=== PATIENT | male | born 1940 | race Caucasian/White ===

== ENCOUNTER 2018-07-30 11:11 | Inpatient (IN) | payer MEDICARE, BC ==
[2018-07-30] MEDS ORDERED: ONDANSETRON 4 MG/2 ML VIAL IVP STA (11:51)
[2018-07-30] MEDS ORDERED: SODIUM CHLORIDE 0.9% 1,000 ML IV STA (11:51)
[2018-07-30] MEDS ORDERED: HYDROmorphone 1 MG/ML 1 ML SYRINGE IVP STA (11:51)
--- NOTE | 2018-07-30 11:56 | ED ---
General Adult HPI - General Chief complaint: Nausea/Vomiting/Diarrhea Stated complaint: Vomiting; abdominal distention; dementia Time Seen by Provider: 07/30/18 11:25 Source: family, RN notes reviewed Mode of arrival: wheelchair Limitations: no limitations - History of Present Illness Initial comments: This a 77-year-old male presents emergency Department with a three-day history of abdominal pain and vomiting. Patient states the pain is diffuse and he has been unable to eat or drink because he vomits anything up. Patient states he thinks he still is passing gas but has had no bowel movement in that period. Patient states his abdomen is also very distended. Patient states he had a colonoscopy about 5-6 years ago. Patient denies any chest pain difficulty breathing shortness of breath per patient denies any fever chills. Patient denies any back pain. Patient denies dysuria hematuria urinary frequency. - Related Data Home Medications Medication Instructions Recorded Confirmed Ascorbic Acid [Vitamin C] 1,000 mg PO DAILY 07/30/18 07/30/18 Cholecalciferol [Vitamin D3] 1,000 unit PO DAILY 07/30/18 07/30/18 Donepezil [Aricept] 10 mg PO HS 07/30/18 07/30/18 Mirtazapine [Remeron] 15 mg PO HS 07/30/18 07/30/18 [place]-3 Fatty Acids/Fish Oil [Fish 1 cap PO DAILY 07/30/18 07/30/18 Oil 1,000 mg Softgel] Prevagen 1 tab PO DAILY 07/30/18 07/30/18 Turmeric Root Extract [Turmeric] 500 mg PO DAILY 07/30/18 07/30/18 Ubidecarenone [Co Q-10] 100 mg PO DAILY 07/30/18 07/30/18 Vitamin B Complex 1 cap PO DAILY 07/30/18 07/30/18 Vitamin E (Dl,Tocopheryl Acet) 400 unit PO DAILY 07/30/18 07/30/18 [Vitamin E] Allergies Allergy/AdvReac Type Severity Reaction Status Date / Time Penicillins Allergy Unknown Verified 07/30/18 11:58 Childhood Review of Systems ROS Statement: Those systems with pertinent positive or pertinent negative responses have been documented in the HPI. ROS Other: All systems not noted in ROS Statement are negative. Past Medical History Past Medical History: Dementia Additional Past Medical History / Comment(s): blind in left eye, hard of hearing , no sense of smell, history of head injury in 90s History of Any Multi-Drug Resistant Organisms: None Reported Past Surgical History: Orthopedic Surgery Past Psychological History: Depression Smoking Status: Former smoker Past Alcohol Use History: Rare Past Drug Use History: None Reported General Exam - General Exam Comments Initial Comments: GENERAL: Patient is well-developed and well-nourished. Patient is nontoxic and well- hydrated and is in moderate distress. ENT: Neck is soft and supple. No significant lymphadenopathy is noted. Oropharynx is clear. Moist mucous membranes. Neck has full range of motion without eliciting any pain. EYES: The sclera were anicteric and conjunctiva were pink and moist. Extraocular movements were intact and pupils were equal round and reactive to light. Eyelids were unremarkable. PULMONARY: Unlabored respirations. Good breath sounds bilaterally. No audible rales rhonchi or wheezing was noted. CARDIOVASCULAR: There is a regular rate and rhythm without any murmurs gallops or rubs. ABDOMEN: Patient's abdomen is distended and diffusely tender patient. Patient has no bowel sounds. No hernias were noted. SKIN: Skin is clear with no lesions or rashes and otherwise unremarkable. NEUROLOGIC: Patient is alert and oriented x3. Cranial nerves II through XII are grossly intact. Motor and sensory are also intact. Normal speech, volume and content. Symmetrical smile. MUSCULOSKELETAL: Normal extremities with adequate strength and full range of motion. No lower extremity swelling or edema. No calf tenderness. LYMPHATICS: No significant lymphadenopathy is noted PSYCHIATRIC: Normal psychiatric evaluation. Limitations: no limitations Course Vital Signs 07/30/18 11:24 Temperature 98.2 F Pulse Rate 74 Respiratory 18 Rate Blood Pressure 146/89 O2 Sat by Pulse 96 Oximetry Medical Decision Making - Medical Decision Making EKG shows normal sinus rhythm at 64 bpm IA interval 168 QRSs 102 QT interval 448 QTC is 462. Patient's EKG shows no ST segment elevation or depression or T wave abnormalities are noted. Patient's CAT scan shows sigmoid volvulus. I spoke with Dr. Remy through a nurse in the OR and he will call me back after he started in the OR. - Lab Data Result diagrams: 07/30/18 12:32 07/30/18 12:32 Lab Results 07/30/18 07/30/18 07/30/18 Range/Units 12:32 12:32 12:32 WBC 8.7 (3.8-10.6) k/uL RBC 5.06 (4.30-5.90) m/uL Hgb 15.5 (13.0-17.5) gm/dL Hct 46.9 (39.0-53.0) % MCV 92.8 (80.0-100.0) fL MCH 30.7 (25.0-35.0) pg MCHC 33.0 (31.0-37.0) g/dL RDW 12.6 (11.5-15.5) % Plt Count 179 (150-450) k/uL Neutrophils % 88 % Lymphocytes % 6 % Monocytes % 5 % Eosinophils % 0 % Basophils % 0 % Neutrophils # 7.6 (1.3-7.7) k/uL Lymphocytes # 0.5 L (1.0-4.8) k/uL Monocytes # 0.4 (0-1.0) k/uL Eosinophils # 0.0 (0-0.7) k/uL Basophils # 0.0 (0-0.2) k/uL PT (9.0-12.0) sec INR (<1.2) APTT (22.0-30.0) sec Sodium 141 (137-145) mmol/L Potassium 3.5 (3.5-5.1) mmol/L Chloride 108 H (98-107) mmol/L Carbon Dioxide 24 (22-30) mmol/L Anion Gap 9 mmol/L BUN 16 (9-20) mg/dL Creatinine 0.77 (0.66-1.25) mg/dL Est GFR (CKD-EPI)AfAm >90 (>60 ml/min/1.73 sqM) Est GFR (CKD-EPI)NonAf 88 (>60 ml/min/1.73 sqM) Glucose 134 H (74-99) mg/dL Plasma Lactic Acid Rboe 1.3 (0.7-2.0) mmol/L Calcium 9.3 (8.4-10.2) mg/dL Total Bilirubin 1.6 H (0.2-1.3) mg/dL AST 38 (17-59) U/L ALT 29 (21-72) U/L Alkaline Phosphatase 64 (38-126) U/L Troponin I (0.000-0.034) ng/mL Total Protein 7.1 (6.3-8.2) g/dL Albumin 4.4 (3.5-5.0) g/dL Amylase 35 (30-110) U/L Lipase 35 (23-300) U/L 07/30/18 07/30/18 Range/Units 12:32 12:32 WBC (3.8-10.6) k/uL RBC (4.30-5.90) m/uL Hgb (13.0-17.5) gm/dL Hct (39.0-53.0) % MCV (80.0-100.0) fL MCH (25.0-35.0) pg MCHC (31.0-37.0) g/dL RDW (11.5-15.5) % Plt Count (150-450) k/uL Neutrophils % % Lymphocytes % % Monocytes % % Eosinophils % % Basophils % % Neutrophils # (1.3-7.7) k/uL Lymphocytes # (1.0-4.8) k/uL Monocytes # (0-1.0) k/uL Eosinophils # (0-0.7) k/uL Basophils # (0-0.2) k/uL PT 10.5 (9.0-12.0) sec INR 1.0 (<1.2) APTT 24.2 (22.0-30.0) sec Sodium (137-145) mmol/L Potassium (3.5-5.1) mmol/L Chloride (98-107) mmol/L Carbon Dioxide (22-30) mmol/L Anion Gap mmol/L BUN (9-20) mg/dL Creatinine (0.66-1.25) mg/dL Est GFR (CKD-EPI)AfAm (>60 ml/min/1.73 sqM) Est GFR (CKD-EPI)NonAf (>60 ml/min/1.73 sqM) Glucose (74-99) mg/dL Plasma Lactic Acid Robe (0.7-2.0) mmol/L Calcium (8.4-10.2) mg/dL Total Bilirubin (0.2-1.3) mg/dL AST (17-59) U/L ALT (21-72) U/L Alkaline Phosphatase (38-126) U/L Troponin I 0.030 (0.000-0.034) ng/mL Total Protein (6.3-8.2) g/dL Albumin (3.5-5.0) g/dL Amylase (30-110) U/L Lipase (23-300) U/L Disposition Clinical Impression: Sigmoid volvulus Disposition: ADMITTED IP TO THIS HOSP Referrals: Brent Richmond DO [Primary Care Provider] - 1-2 days Time of Disposition: 15:39
[2018-07-30 13:03] LABS: Basophils % (A) 0 %; Eosinophils % (A) 0 %; HCT 46.9 % (39.0-53.0); HGB 15.5 gm/dL (13.0-17.5); Lymphocytes # (A) 0.5 k/uL (1.0-4.8); Lymphocytes % (A) 6 %; MCH 30.7 pg (25.0-35.0); MCV 92.8 fL (80.0-100.0); Monocytes # (A) 0.4 k/uL (0-1.0); Monocytes % (A) 5 %; Neutrophils # (A) 7.6 k/uL (1.3-7.7); Neutrophils % (A) 88 %; Platelet Count 179 k/uL (150-450); RBC 5.06 m/uL (4.30-5.90); RDW 12.6 % (11.5-15.5); WBC 8.7 k/uL (3.8-10.6)
[2018-07-30 13:12] LABS: ALT 29 U/L (21-72); AST 38 U/L (17-59); Albumin 4.4 g/dL (3.5-5.0); Alkaline Phosphatase 64 U/L (38-126); Amylase 35 U/L (30-110); Anion Gap 9 mmol/L; Blood Urea Nitrogen 16 mg/dL (9-20); Calcium 9.3 mg/dL (8.4-10.2); Carbon Dioxide 24 mmol/L (22-30); Chloride 108 mmol/L (98-107); Glucose 134 mg/dL (74-99); Lipase 35 U/L (23-300); Potassium 3.5 mmol/L (3.5-5.1); Sodium 141 mmol/L (137-145); Total Bilirubin 1.6 mg/dL (0.2-1.3); Total Protein 7.1 g/dL (6.3-8.2)
[2018-07-30 13:20] LABS: Partial Thromboplastin Time 24.2 sec (22.0-30.0); Prothrombin Time 10.5 sec (9.0-12.0)
--- NOTE | 2018-07-30 14:01 | CT ---
EXAMINATION TYPE: CT abdomen pelvis w con DATE OF EXAM: 07/30/2018 COMPARISON: NONE HISTORY: 77-year-old male with abdominal distention with vomiting TECHNIQUE: Contiguous axial scanning of the abdomen and pelvis following administration of 100 ml Iso charanjit 300 IV contrast. Delayed images through the kidneys and coronal/sagittal reconstructions perform ed. CT DLP: 778.1 mGycm Automated exposure control for dose reduction was used. FINDINGS: Heart upper limits of normal in size without pericardial effusion. Moderate-sized hilar hernia. Promi nent dependent atelectasis and underlying emphysema. No focal liver lesion or biliary ductal dilatation. Portal venous system is patent. Gallbladder, adrenal glands, kidneys, spleen, and mildly atrophic pancreas show no gross anomaly. There is mild abdominal ascites. No dilated small bowel or free air. Moderate stool up to the proximal sigmoid. The remainder of the sigmoid colon is markedly redundant, dilated up to 9.8 cm, and reaches up to the right upper quadrant. There is some focal torquing of the distal sigmoid as it comes back into the pelvis with the distinct transition point, refer to axial i mages 59 through 64. Prominent edematous change in the mesentery in this region. Bladder distended. Prostate gland measures 4.2 cm wide. Mild presacral edema. No pelvic lymphadenopat hy seen. Bones: Degenerative changes of the hips and SI joints and mild degenerative disc disease throughout t he spine. IMPRESSION: 1. MARKEDLY DILATED SIGMOID COLON MEASURING UP TO 9.8 CM REACHING UP INTO THE RIGHT UPPER QUADRANT AN D THE DISTAL SIGMOID SHOWING FOCAL TORQUING AND A WELL-DEFINED TRANSITION POINT (CORONAL IMAGE 51 AND AXIAL IMAGE 59). FINDINGS COMPATIBLE WITH SIGMOID VOLVULUS. 2. REACTIVE MILD FREE FLUID AND EXTENSIVE EDEMATOUS CHANGES IN THE MESENTERY. SURGICAL CONSULTATION R ECOMMENDED.
[2018-07-30] MEDS ORDERED: HYDROmorphone 0.5 MG/0.5 ML SYRINGE IVP STA (15:56)
[2018-07-30] MEDS: LACTATED RINGERS 1,000 ML IV ONE (17:17)
[2018-07-30] MEDS ORDERED: KETAMINE 10 MG/ML 20 ML VIAL ONE (17:19)
[2018-07-30] MEDS ORDERED: MIDAZOLAM 2 MG/2 ML VIAL ONE (17:19)
--- NOTE | 2018-07-30 17:26 | P.GSHP ---
History of Present Illness H&P Date: 07/30/18 Chief Complaint: Sigmoid volvulus Patient presents to the hospital today with episodes of vomiting and abdominal pain. Patient has a history of dementia. Decreased bowel function. He describes feeling increased bloating. Patient had a CAT scan demonstrating what appears represent sigmoid volvulus. [place] and proximal colonic dilatation noted. No evidence of pneumatosis. Mild inflammatory changes at the volvulus site however. No history of similar events. Unknown history of endoscopy in the past. Patient does live by himself. Patient had a nasogastric tube placed in the ER. Apparently after the nasogastric tube was placed he was trying to remove it. Patient was given some sedation. He is unable to provide any significant history to me at this time. - Review of Systems ROS unobtainable: Reports: due to mental status Past Medical History Past Medical History: Dementia Additional Past Medical History / Comment(s): blind in left eye, hard of hearing , no sense of smell, history of head injury in 90s History of Any Multi-Drug Resistant Organisms: None Reported Past Surgical History: Orthopedic Surgery Past Psychological History: Depression Smoking Status: Former smoker Past Alcohol Use History: Rare Past Drug Use History: None Reported Medications and Allergies Home Medications Medication Instructions Recorded Confirmed Type Ascorbic Acid [Vitamin C] 1,000 mg PO DAILY 07/30/18 07/30/18 History Cholecalciferol [Vitamin D3] 1,000 unit PO DAILY 07/30/18 07/30/18 History Donepezil [Aricept] 10 mg PO HS 07/30/18 07/30/18 History Mirtazapine [Remeron] 15 mg PO HS 07/30/18 07/30/18 History [place]-3 Fatty Acids/Fish Oil [Fish 1 cap PO DAILY 07/30/18 07/30/18 History Oil 1,000 mg Softgel] Prevagen 1 tab PO DAILY 07/30/18 07/30/18 History Turmeric Root Extract [Turmeric] 500 mg PO DAILY 07/30/18 07/30/18 History Ubidecarenone [Co Q-10] 100 mg PO DAILY 07/30/18 07/30/18 History Vitamin B Complex 1 cap PO DAILY 07/30/18 07/30/18 History Vitamin E (Dl,Tocopheryl Acet) 400 unit PO DAILY 07/30/18 07/30/18 History [Vitamin E] Allergies Allergy/AdvReac Type Severity Reaction Status Date / Time Penicillins Allergy Unknown Verified 07/30/18 11:58 Childhood Surgical - Exam Vital Signs Temp Pulse Resp BP Pulse Ox 98.2 F 74 18 146/89 96 07/30/18 11:24 07/30/18 11:24 07/30/18 11:24 07/30/18 11:24 07/30/18 11:24 Physical exam: General: Elderly male in no distress, somnolent HEENT: Normocephalic, sclerae nonicteric Abdomen: Distended, mild diffuse tenderness Extremities: No edema Neuro: Sedated Results - Labs 07/30/18 12:32 07/30/18 12:32 Abnormal Lab Results - Last 24 Hours (Table) 07/30/18 07/30/18 Range/Units 12:32 12:32 Lymphocytes # 0.5 L (1.0-4.8) k/uL Chloride 108 H (98-107) mmol/L Glucose 134 H (74-99) mg/dL Total Bilirubin 1.6 H (0.2-1.3) mg/dL Diabetes panel 07/30/18 Range/Units 12:32 Sodium 141 (137-145) mmol/L Potassium 3.5 (3.5-5.1) mmol/L Chloride 108 H (98-107) mmol/L Carbon Dioxide 24 (22-30) mmol/L BUN 16 (9-20) mg/dL Creatinine 0.77 (0.66-1.25) mg/dL Glucose 134 H (74-99) mg/dL Calcium 9.3 (8.4-10.2) mg/dL AST 38 (17-59) U/L ALT 29 (21-72) U/L Alkaline Phosphatase 64 (38-126) U/L Total Protein 7.1 (6.3-8.2) g/dL Albumin 4.4 (3.5-5.0) g/dL Calcium panel 07/30/18 Range/Units 12:32 Calcium 9.3 (8.4-10.2) mg/dL Albumin 4.4 (3.5-5.0) g/dL Pituitary panel 07/30/18 Range/Units 12:32 Sodium 141 (137-145) mmol/L Potassium 3.5 (3.5-5.1) mmol/L Chloride 108 H (98-107) mmol/L Carbon Dioxide 24 (22-30) mmol/L BUN 16 (9-20) mg/dL Creatinine 0.77 (0.66-1.25) mg/dL Glucose 134 H (74-99) mg/dL Calcium 9.3 (8.4-10.2) mg/dL Adrenal panel 07/30/18 Range/Units 12:32 Sodium 141 (137-145) mmol/L Potassium 3.5 (3.5-5.1) mmol/L Chloride 108 H (98-107) mmol/L Carbon Dioxide 24 (22-30) mmol/L BUN 16 (9-20) mg/dL Creatinine 0.77 (0.66-1.25) mg/dL Glucose 134 H (74-99) mg/dL Calcium 9.3 (8.4-10.2) mg/dL Total Bilirubin 1.6 H (0.2-1.3) mg/dL AST 38 (17-59) U/L ALT 29 (21-72) U/L Alkaline Phosphatase 64 (38-126) U/L Total Protein 7.1 (6.3-8.2) g/dL Albumin 4.4 (3.5-5.0) g/dL Assessment and Plan (1) Sigmoid volvulus Narrative/Plan: Will proceed with decompressive colonoscopy. Case reviewed in detail with the patient's caregiver. The CAT scan films were actually reviewed with her. If the decompressive colonoscopy is not successful the patient will likely require laparotomy with end colostomy. Current Visit: Yes Status: Acute Code(s): K56.2 - VOLVULUS SNOMED Code(s) : 530331137
[2018-07-30] MEDS ORDERED: ACETAMINOPHEN IV (For NPO) 1,000 MG in EMPTY BAG 1 BAG IVPB ONE (17:41)
--- NOTE | 2018-07-30 17:46 | P.PCN ---
Date of Procedure: 07/30/18 Procedure(s) Performed: PREOPERATIVE DIAGNOSIS: Sigmoid volvulus with colonic obstruction POSTOPERATIVE DIAGNOSIS: Same PROCEDURE: Decompressive colonoscopy ANESTHESIA: MAC SURGEON: Kb Remy M.D. SPECIMENS: None ENDOSCOPIC PROCEDURE: The patient was placed on the endoscopy table in the left decubitus position. The Olympus colonoscope was inserted into the anus and passed under direct visualization to the distal sigmoid colon. At that location I could visualize a hyperemia of the mucosa with a twisting of the colon at that region. I was able to advance the scope however beyond the site of obstruction without significant difficulty. Other than the hyperemia there was no mucosal abnormalities to suggest malignancy. This appeared quite consistent with sigmoid volvulus. I was able to advance the camera into the proximal sigmoid colon decompressing air throughout. Stool was present. I could not visualize the proximal mucosal surfaces well. Attempts at placing a rectal tube proximal to the twisting location in the distal sigmoid were unsuccessful. After fully decompressing that loop the scope was withdrawn. The nasogastric tube was removed. Digital rectal examination was normal. The patient was taken to the recovery room in stable condition per anesthesia guidelines. RECOMMENDATIONS: We'll repeat abdominal x-rays tomorrow. Keep nothing by mouth. Further decisions regarding surgical resection will take place tomorrow.
[2018-07-30] MEDS: D5-0.45% NACL WITH KCL 20MEQ/L 1,000 ML IV SCH (23:41)
[2018-07-31] MEDS: D5-0.45% NACL WITH KCL 20MEQ/L 1,000 ML IV SCH ×4 (00:29→21:52)
[2018-07-31] MEDS: HEPARIN SODIUM,PORCINE 5,000 UNIT/ML 1 ML VIAL SQ SCH ×4 (00:29→23:45)
[2018-07-31] MEDS: PANTOPRAZOLE 40 MG/10 ML VIAL IV SCH (08:20)
[2018-07-31 08:34] LABS: Basophils % (A) 0 %; Eosinophils % (A) 1 %; HCT 41.8 % (39.0-53.0); HGB 14.2 gm/dL (13.0-17.5); Lymphocytes # (A) 0.9 k/uL (1.0-4.8); Lymphocytes % (A) 12 %; MCHC 33.9 g/dL (31.0-37.0); MCV 94.3 fL (80.0-100.0); Mean Platelet Volume 8.2; Monocytes # (A) 0.5 k/uL (0-1.0); Monocytes % (A) 6 %; Neutrophils # (A) 6.1 k/uL (1.3-7.7); Neutrophils % (A) 80 %; Platelet Count 190 k/uL (150-450); RBC 4.43 m/uL (4.30-5.90); RDW 12.6 % (11.5-15.5); WBC 7.6 k/uL (3.8-10.6)
[2018-07-31 08:47] LABS: ALT 36 U/L (21-72); AST 38 U/L (17-59); Albumin 3.2 g/dL (3.5-5.0); Alkaline Phosphatase 50 U/L (38-126); Anion Gap 5 mmol/L; Blood Urea Nitrogen 16 mg/dL (9-20); Calcium 8.4 mg/dL (8.4-10.2); Carbon Dioxide 27 mmol/L (22-30); Chloride 109 mmol/L (98-107); Glucose 111 mg/dL (74-99); Phosphorus 2.6 mg/dL (2.5-4.5); Sodium 141 mmol/L (137-145); Total Bilirubin 1.4 mg/dL (0.2-1.3); Total Protein 5.5 g/dL (6.3-8.2)
[2018-07-31 08:48] LABS: Potassium 3.5 mmol/L (3.5-5.1)
[2018-07-31] MEDS: HYDROmorphone 0.5 MG/0.5 ML SYRINGE IVP PRN (10:35)
--- NOTE | 2018-07-31 10:49 | XR ---
EXAMINATION TYPE: XR abdomen complete w decub DATE OF EXAM: 07/31/2018 COMPARISON: CT scan 07/30/2017 HISTORY: Abdominal pain TECHNIQUE: Supine, upright, and left side down lateral decubitus views of the abdomen are obtained. FINDINGS: The abnormal findings of dilated sigmoid colon extending from the left lower quadrant towards the rig ht upper quadrant and midabdomen are again noted consistent with coffee hahn shape. No pneumoperitone um. Contrast is present within the urinary bladder. Lung bases are clear. IMPRESSION: Findings compatible with patient's CT, sigmoid volvulus. A Red level critical message alert has been initiated for Kb Remy MD via the [employer] Critical Results System on 07/31/2018 10:46 AM. This message alert has been sent to Kb Remy MD via the preferences provided by the clinician for the receipt of Radiology Critical Findings. Messag e ID [id number].
[2018-07-31] MEDS: IV FLUID CONTINUATION 1,000 ML IV ONE (14:04)
--- NOTE | 2018-07-31 14:30 | P.CONS ---
History of Present Illness - Reason for Consult Advanced dementia medical clearance - History of Present Illness 77-year-old gentleman came in with the complaints of 2 day onset of nausea vomiting was brought in by the caregiver. Patient has advancing dementia dementia of Alzheimer's type with the baseline mental status alert oriented 1- 2. Patient was bit dehydrated clinically nausea vomiting has not been eating for last couple days with significant abdominal bloating and distention and abdomen was tympanic. Patient was found to have sigmoid volvulus patient underwent agnostic and therapeutic colonoscopy. Repeat x-ray did show nonimprovement in sigmoid volvulus because of which patient will undergo colectomy today I will obtain EKG for preoperative clearance. She does have any significant cardiac or lung problems. Patient denied any chest pain shortness of breath. Review of Systems REVIEW OF SYSTEMS: CONSTITUTIONAL: No fever, no malaise, no fatigue. HEENT: No recent visual problems or hearing problems. Denied any sore throat. CARDIOVASCULAR: No chest pain, orthopnea, PND, no palpitations, no syncope. PULMONARY: No shortness of breath, no cough, no hemoptysis. GASTROINTESTINAL: As mentioned in HPI NEUROLOGICAL: No headaches, no weakness, no numbness. HEMATOLOGICAL: Denies any bleeding or petechiae. GENITOURINARY: Denies any burning micturition, frequency, or urgency. MUSCULOSKELETAL/RHEUMATOLOGICAL: Denies any joint pain, swelling, or any muscle pain. ENDOCRINE: Denies any polyuria or polydipsia. The rest of the 14-point review of systems is negative. Past Medical History Past Medical History: Dementia Additional Past Medical History / Comment(s): blind in left eye, hard of hearing , no sense of smell, history of head injury in 90s History of Any Multi-Drug Resistant Organisms: None Reported Past Surgical History: Orthopedic Surgery Smoking Status: Former smoker - Past Family History Father Family Medical History: Unable to Obtain Medications and Allergies Home Medications Medication Instructions Recorded Confirmed Type Ascorbic Acid [Vitamin C] 1,000 mg PO DAILY 07/30/18 07/30/18 History Cholecalciferol [Vitamin D3] 1,000 unit PO DAILY 07/30/18 07/30/18 History Donepezil [Aricept] 10 mg PO HS 07/30/18 07/30/18 History Mirtazapine [Remeron] 15 mg PO HS 07/30/18 07/30/18 History [place]-3 Fatty Acids/Fish Oil [Fish 1 cap PO DAILY 07/30/18 07/30/18 History Oil 1,000 mg Softgel] Prevagen 1 tab PO DAILY 07/30/18 07/30/18 History Turmeric Root Extract [Turmeric] 500 mg PO DAILY 07/30/18 07/30/18 History Ubidecarenone [Co Q-10] 100 mg PO DAILY 07/30/18 07/30/18 History Vitamin B Complex 1 cap PO DAILY 07/30/18 07/30/18 History Vitamin E (Dl,Tocopheryl Acet) 400 unit PO DAILY 07/30/18 07/30/18 History [Vitamin E] Allergies Allergy/AdvReac Type Severity Reaction Status Date / Time Penicillins Allergy Unknown Verified 07/31/18 14:07 Childhood Physical Exam Vitals: Vital Signs Temp Pulse Pulse Resp BP BP Pulse Ox 07/31/18 14:07 98.1 F 77 16 108/66 96 07/31/18 11:38 98.7 F 94 16 103/79 92 L 07/31/18 08:16 16 07/31/18 07:00 98.7 F 83 16 112/66 92 L 07/31/18 00:42 98.9 F 91 15 112/46 94 L 07/30/18 19:50 56 L 101/62 07/30/18 19:35 55 L 102/62 07/30/18 19:32 98.1 F 61 15 112/63 95 07/30/18 19:05 57 L 103/65 07/30/18 18:50 97.9 F 68 15 115/73 92 L 07/30/18 18:31 62 16 96/55 98 07/30/18 18:17 59 L 16 93/54 97 07/30/18 18:01 67 16 97/52 96 07/30/18 17:48 97.0 F L 63 14 96/58 93 L 07/30/18 17:06 94 16 103/79 92 L 07/30/18 17:00 94 16 103/79 92 L 07/30/18 16:00 92 15 139/84 92 L 07/30/18 15:00 87 17 139/84 92 L Intake and Output 07/30/18 07/31/18 07/31/18 22:59 06:59 14:59 Intake Total 850 685 Output Total 680 Balance 850 5 Intake: IV 600 Intake, IV Titration 250 685 Amount D5-0.45% NaCl with KCl 685 20Meq/l 1,000 ml @ 125 mls/hr IV .Q8H [facility] Rx#: [id number] Sodium Chloride 0.9% 1, 250 000 ml @ 999 mls/hr IV . Q1H1M [facility] Rx#:[id number] Output: Urine 680 Other: Voiding Method Diaper Diaper Incontinent # Voids 1 # Bowel Movements 0 PHYSICAL EXAMINATION: GENERAL: The patient is alert and oriented x3, not in any acute distress. Well developed, well nourished. HEENT: Pupils are round and equally reacting to light. EOMI. No scleral icterus. No conjunctival pallor. Normocephalic, atraumatic. No pharyngeal erythema. No thyromegaly. CARDIOVASCULAR: S1 and S2 present. No murmurs, rubs, or gallops. PULMONARY: Chest is clear to auscultation, no wheezing or crackles. ABDOMEN: Soft, distended tympanic in sluggish bowel sounds MUSCULOSKELETAL: No joint swelling or deformity. EXTREMITIES: No cyanosis, clubbing, or pedal edema. NEUROLOGICAL: Gross neurological examination did not reveal any focal deficits. SKIN: No rashes. Results CBC & Chem 7: 07/31/18 07:19 07/31/18 07:19 Labs: Abnormal Lab Results - Last 24 Hours (Table) 07/31/18 07/31/18 Range/Units 07:19 07:19 Lymphocytes # 0.9 L (1.0-4.8) k/uL Chloride 109 H (98-107) mmol/L Glucose 111 H (74-99) mg/dL Total Bilirubin 1.4 H (0.2-1.3) mg/dL Total Protein 5.5 L (6.3-8.2) g/dL Albumin 3.2 L (3.5-5.0) g/dL Assessment and Plan Plan: -Colonic Obstruction secondary to sigmoid volvulus: Patient will undergo colectomy today patient is low operative risk for surgery will obtain EKG -Advanced Alzheimer's dementia avoid benzodiazepines barbiturates opiates and anticholinergic medications I'll start him on Toradol for pain if that is agreeable by general surgery. --Nausea vomiting secondary to colonic obstruction -Depression: Antidepressants will be resumed as soon as he can tolerate by mouth medications. Thank you for consultation and will continue to follow the patient
[2018-07-31] MEDS ORDERED: fentaNYL (PF) 50 MCG/ML 2 ML AMP IVP ONE ×2 (14:31→15:02)
[2018-07-31] MEDS ORDERED: MIDAZOLAM 2 MG/2 ML VIAL IVP ONE ×2 (14:31→15:02)
[2018-07-31] MEDS ORDERED: NALOXONE 0.4 MG/ML 1 ML VIAL IV PRN (14:59)
[2018-07-31 15:02] LABS: Glucose,Whole Blood 100 mg/dL (75-99)
[2018-07-31] MEDS ORDERED: metroNIDAZOLE-NS PMX 500 MG in SALINE 1 100ML.BAG IVPB STA (15:15)
--- NOTE | 2018-07-31 15:29 | P.PN ---
Subjective Progress Note Date: 07/31/18 Principal diagnosis: Sigmoid volvulus Patient much more alert today. Says his pain is improved since when he came to the hospital. Still feels bloated. He did have a small amount of flatus. No significant bowel function however. Today's x-rays still show distended sigmoid colon consistent with sigmoid volvulus. White blood cell count remains normal. Objective - Vital Signs Vital signs: Vital Signs Temp 98.1 F 07/31/18 14:07 Pulse 66 07/31/18 15:23 Resp 16 07/31/18 15:23 BP 113/54 07/31/18 15:23 Pulse Ox 99 07/31/18 15:23 Intake & Output 07/30/18 07/31/18 07/31/18 18:59 06:59 18:59 Intake Total 449 322 8163 Output Total 680 Balance 974 194 0065 Weight 83.915 kg Intake: IV 600 Intake, IV Titration 935 1000 Amount D5-0.45% NaCl with KCl 685 1000 20Meq/l 1,000 ml @ 125 mls/hr IV .Q8H [facility] Rx#: [id number] Sodium Chloride 0.9% 1, 250 000 ml @ 999 mls/hr IV . Q1H1M [facility] Rx#:[id number] Output: Urine 680 Other: Voiding Method Diaper Diaper Incontinent # Voids 1 # Bowel Movements 0 - Exam Abdomen soft, mild distention, mild lower abdominal tenderness - Labs CBC & Chem 7: 07/31/18 07:19 07/31/18 07:19 Labs: Abnormal Lab Results - Last 24 Hours (Table) 07/31/18 07/31/18 07/31/18 Range/Units 07:19 07:19 15:00 Lymphocytes # 0.9 L (1.0-4.8) k/uL Chloride 109 H (98-107) mmol/L Glucose 111 H (74-99) mg/dL POC Glucose (mg/dL) 100 H (75-99) mg/dL Total Bilirubin 1.4 H (0.2-1.3) mg/dL Total Protein 5.5 L (6.3-8.2) g/dL Albumin 3.2 L (3.5-5.0) g/dL Assessment and Plan (1) Sigmoid volvulus Narrative/Plan: Patient with persistent sigmoid volvulus. Clinical scenario discussed with the patient his caregiver and also his son by phone. Recommend exploratory laparotomy with sigmoid colectomy. We'll try to avoid colostomy if possible. They understand that is a possibility however. Risks of bleeding, infection, hernia, ostomy placement, leak, abscess, ureteral injury were reviewed. They understand and wish to proceed. Current Visit: Yes Status: Acute Code(s): K56.2 - VOLVULUS SNOMED Code(s) : 197743286
[2018-07-31] MEDS ORDERED: ceFAZolin IN SWFI 2 GM/20 ML SYRINGE IVP ONE (15:30)
[2018-07-31] MEDS ORDERED: PHENYLEPHRINE-0.9% NACL SYG 1 MG/10 ML SYRINGE ONE (15:36)
[2018-07-31] MEDS ORDERED: NEOSTIGMINE 1 MG/ML 10 ML VIAL ONE (15:36)
[2018-07-31] MEDS ORDERED: LIDOCAINE 1% INJ 10MG/ML (20 ML MDV) ONE (15:36)
[2018-07-31] MEDS ORDERED: fentaNYL (PF) 50 MCG/ML 2 ML AMP ONE (15:36)
[2018-07-31] MEDS ORDERED: GLYCOPYRROLATE 0.2 MG/ML 2 ML VIAL ONE (15:36)
[2018-07-31] MEDS ORDERED: SUCCINYLCHOLINE CHLORIDE 100 MG/5 ML SYR IV ONE (15:36)
[2018-07-31] MEDS ORDERED: ROCURONIUM BROMIDE 10 MG/ML 10 ML VIAL IV ONE (15:36)
[2018-07-31] MEDS ORDERED: PROPOFOL 10 MG/ML 20 ML VIAL IV ONE (15:36)
[2018-07-31] MEDS ORDERED: LACTATED RINGERS 1,000 ML IV ONE (16:36)
--- NOTE | 2018-07-31 17:07 | P.OP ---
Date of Procedure: 07/31/18 Procedure(s) Performed: PREOPERATIVE DIAGNOSIS: Sigmoid volvulus POSTOPERATIVE DIAGNOSIS: Same PROCEDURE: Sigmoid colectomy SURGEON: Sandrita EBL: 25 mL ANESTHESIA: General COMPLICATIONS: None OPERATIVE PROCEDURE: Patient place in the operative table in the supine position. The patient was placed under general anesthesia. The abdomen was prepped and draped in usual sterile fashion. A vertical incision was in the infraumbilical location. The fascia was divided as well. The patient had some serous fluid within the perineal cavity. Through this fascial opening I was able to retrieve and withdraw the large redundant sigmoid loop. The twist in the mesentery was 180 and was untwisted at that time. A colotomy was made on the antimesenteric border and the air within the bowel lumen was evacuated. The defect was closed using a linear 75 stapler. The bowel was carefully inspected. It was somewhat edematous. Some transient edema improved while we were observing the bowel. From our discussions with the patient and his family preoperatively they were quite apprehensive about a colostomy given his dementia. It was decided to proceed with resection and primary anastomosis at that time. The bowel was divided using a linear 75 green load stapler both proximally and distally. The mesentery of the redundant loop was divided using a LigaSure. The specimen was passed off. A [id number] anastomosis then took place between the 2 portions of proximal and distal sigmoid colon. The antimesenteric portion of the staple line was removed. The linear stapler green load was fired along the antimesenteric border. This created a nice wide opening. The remaining defect was closed transversely using a linear 75 green load stapler. The transverse staple line was imbricated using 3-0 GI silk sutures. A 3-0 GI silk crotch stitch was also placed. The area was inspected and no bleeding or ischemic changes were identified. The abdomen was irrigated with saline. The midline fascia was then reapproximated using a double- stranded #1 PDS suture. The skin was then closed using mony. Sterile dressings were then applied. DISPOSITION: Stable to recovery room
[2018-07-31] MEDS: ROPIVACAINE 250 MG, HYDROMORPHONE (PF) 5 MG in SODIUM CHLORIDE 0.9% 200 ML EPIDURAL PRN (17:15)
[2018-07-31] MEDS: LACTATED RINGERS 1,000 ML IV ONE (18:48)
[2018-07-31] MEDS: LEVOFLOXACIN 500MG-D5W PMX 500 MG in DEXTROSE/WATER 1 100ML.BAG IVPB SCH (19:25)
[2018-07-31] MEDS: MIRTAZAPINE 15 MG TAB PO SCH (21:38)
[2018-07-31] MEDS: metroNIDAZOLE-NS PMX 500 MG in SALINE 1 100ML.BAG IVPB SCH (23:45)
[2018-08-01] MEDS: D5-0.45% NACL WITH KCL 20MEQ/L 1,000 ML IV SCH ×3 (02:37→23:20)
--- NOTE | 2018-08-01 07:16 | P.PN ---
Progress Note - Text Progress Note Date: 08/01/18 Postoperative day #1 status post sigmoid colectomy epidural catheter placed for postoperative analgesia, patient doing well epidural site okay, patient currently on combination of epidural infusion solution of Ropivacaine 0.0625% and Dilaudid 20 g per mL the infusion rate at 5ml per hour , patient had no motor deficit epidural site okay , vital signs stable VAS2/10 , Assessment and plan= post operative day # 1 patient doing well ,pain well controlled , there is no anesthesia related complications
[2018-08-01 08:13] LABS: Basophils % (A) 0 %; Eosinophils % (A) 0 %; HCT 39.7 % (39.0-53.0); HGB 13.3 gm/dL (13.0-17.5); Lymphocytes # (A) 0.7 k/uL (1.0-4.8); Lymphocytes % (A) 9 %; MCH 31.8 pg (25.0-35.0); MCHC 33.5 g/dL (31.0-37.0); MCV 94.8 fL (80.0-100.0); Monocytes # (A) 0.5 k/uL (0-1.0); Monocytes % (A) 6 %; Neutrophils # (A) 6.6 k/uL (1.3-7.7); Neutrophils % (A) 82 %; Platelet Count 158 k/uL (150-450); RBC 4.19 m/uL (4.30-5.90); RDW 12.5 % (11.5-15.5)
[2018-08-01 08:19] LABS: Albumin 2.5 g/dL (3.5-5.0); Calcium 7.9 mg/dL (8.4-10.2); Magnesium 1.8 mg/dL (1.6-2.3); Phosphorus 2.4 mg/dL (2.5-4.5); Potassium 3.6 mmol/L (3.5-5.1); Total Bilirubin 2.3 mg/dL (0.2-1.3); Total Protein 4.6 g/dL (6.3-8.2)
[2018-08-01] MEDS: PANTOPRAZOLE 40 MG/10 ML VIAL IV SCH (09:23)
[2018-08-01] MEDS: BISACODYL 10 MG SUPP RECTAL SCH (09:23)
[2018-08-01] MEDS: HEPARIN SODIUM,PORCINE 5,000 UNIT/ML 1 ML VIAL SQ SCH ×2 (09:23→18:53)
[2018-08-01] MEDS: metroNIDAZOLE-NS PMX 500 MG in SALINE 1 100ML.BAG IVPB SCH ×2 (09:36→17:33)
--- NOTE | 2018-08-01 11:04 | XR ---
EXAMINATION TYPE: XR chest 1V portable DATE OF EXAM: 08/01/2018 HISTORY: fever. REFERENCE: NONE. FINDINGS: The heart is enlarged. There are increased markings throughout the chest. These may be acut e or chronic. If acute, these may reflect mild heart failure. If chronic this likely represents inter stitial change. There is some blunting of the left CP angle. I could not exclude a small left effusio n. IMPRESSION: 1. CARDIOMEGALY. 2. INTERSTITIAL CHANGE. 3. I COULD NOT EXCLUDE A SMALL LEFT-SIDED EFFUSION.
--- NOTE | 2018-08-01 13:51 | P.PN ---
Subjective Patient given with the colonic obstruction found to have sigmoid malleolus for which the patient underwent colectomy after failed therapeutic colonoscopy. She was started on levofloxacin and metronidazole by general surgery. Patient had low-grade fever because of which are bit septic workup which showed mild left-sided pleural effusion. Patient is being continued on antibiotics patient cannot give me any history because of his baseline advanced dementia. Patient is being continued on IV fluids will repeat a sick metabolic profile and CBC tomorrow. Active Medications Bisacodyl (Dulcolax) 10 mg RECTAL DAILY [facility] Last Admin: 08/01/18 09:23 Dose: 10 mg Heparin Sodium (Porcine) (Heparin) 5,000 unit SQ Q8HR [facility] Last Admin: 08/01/18 09:23 Dose: 5,000 unit Hydromorphone HCl (Dilaudid) 0.5 mg IVP Q3HR PRN PRN Reason: Moderate to Severe Pain Last Admin: 07/31/18 10:35 Dose: 0.5 mg Potassium Chloride/Dextrose/Sod Cl (D5%-1/2ns-Kcl 20 Meq/L Iv Solution) 1,000 mls @ 125 mls/hr IV .Q8H [facility] Last Admin: 08/01/18 02:37 Dose: Not Given Ropivacaine 250 mg/Hydromorphone HCl 5 mg/ Sodium Chloride 250 mls @ 0 mls/hr EPIDURAL .Q0M PRN; Protocol PRN Reason: Pain Control Last Infusion: 07/31/18 21:36 Dose: 5 mls/hr Levofloxacin 500 mg/ IV (Solution) 100 mls @ 100 mls/hr IVPB Q24H [facility] Last Admin: 07/31/18 19:25 Dose: 100 mls/hr Metronidazole 500 mg/ IV (Solution) 100 mls @ 100 mls/hr IVPB Q8HR [facility] Last Admin: 08/01/18 09:36 Dose: 100 mls/hr Mirtazapine (Remeron) 15 mg PO HS [facility] Last Admin: 07/31/18 21:38 Dose: Not Given Naloxone HCl (Narcan) 0.2 mg IV Q2M PRN PRN Reason: Opioid Reversal Pantoprazole Sodium (Protonix) 40 mg IV DAILY [facility] Last Admin: 08/01/18 09:23 Dose: 40 mg Objective - Vital Signs Vital signs: Vital Signs Temp 99.8 F H 08/01/18 09:20 Pulse 86 08/01/18 09:20 Resp 16 08/01/18 09:20 BP 100/61 08/01/18 09:20 Pulse Ox 94 L 08/01/18 09:20 Intake & Output 07/31/18 08/01/18 08/01/18 18:59 06:59 18:59 Intake Total 2000 139.6 Output Total 420 750 Balance 1580 -610.4 Intake: IV 1000 Intake, IV Titration 1000 139.6 Amount D5-0.45% NaCl with KCl 1000 125 20Meq/l 1,000 ml @ 125 mls/hr IV .Q8H [facility] Rx#: [id number] Ropivacaine 250 mg 14.6 Hydromorphone (Pf) 5 mg In Sodium Chloride 0.9% 200 ml @ Per Protocol EPIDURAL .Q0M PRN Rx#: [id number] Output: Urine 400 750 Estimated Blood Loss 20 Other: Voiding Method Diaper Indwelling Catheter Incontinent # Voids 1 - Exam PHYSICAL EXAMINATION: GENERAL: The patient is drowsy and oriented x1-2 is his baseline, not in any acute distress. Well developed, well nourished. HEENT: Pupils are round and equally reacting to light. EOMI. No scleral icterus. No conjunctival pallor. Normocephalic, atraumatic. No pharyngeal erythema. No thyromegaly. CARDIOVASCULAR: S1 and S2 present. No murmurs, rubs, or gallops. PULMONARY: Chest is clear to auscultation, no wheezing or crackles. ABDOMEN: Sluggish bowel sounds surgical site area clean MUSCULOSKELETAL: No joint swelling or deformity. EXTREMITIES: No cyanosis, clubbing, or pedal edema. NEUROLOGICAL: Gross neurological examination did not reveal any focal deficits. SKIN: No rashes. - Labs CBC & Chem 7: 08/01/18 07:07 08/01/18 07:07 Labs: Abnormal Lab Results - Last 24 Hours (Table) 07/31/18 08/01/18 08/01/18 Range/Units 15:00 07:07 07:07 RBC 4.19 L (4.30-5.90) m/uL Lymphocytes # 0.7 L (1.0-4.8) k/uL POC Glucose (mg/dL) 100 H (75-99) mg/dL Calcium 7.9 L (8.4-10.2) mg/dL Phosphorus 2.4 L (2.5-4.5) mg/dL Total Bilirubin 2.3 H (0.2-1.3) mg/dL Total Protein 4.6 L (6.3-8.2) g/dL Albumin 2.5 L (3.5-5.0) g/dL Assessment and Plan Plan: -Colonic Obstruction secondary to sigmoid volvulus: Status post colectomy, patient is on antibiotics for possible colitis from Gen. surgery -Low-grade fever septic workup with chest x-ray a urine cultures, blood cultures. Patient is being continued on levofloxacin and metronidazole for above-mentioned reasons -Advanced Alzheimer's dementia avoid benzodiazepines barbiturates opiates and anticholinergic medications -Depression: Antidepressants will be resumed as soon as he can tolerate by mouth medications. Thank you for consultation and will continue to follow the patient
[2018-08-01] MEDS: LEVOFLOXACIN 500MG-D5W PMX 500 MG in DEXTROSE/WATER 1 100ML.BAG IVPB SCH (18:53)
[2018-08-01] MEDS: MIRTAZAPINE 15 MG TAB PO SCH (22:13)
[2018-08-01] MEDS ORDERED: SODIUM CHLORIDE 0.9% 1,000 ML IV ONE (22:14)
[2018-08-01] MEDS: ROPIVACAINE 250 MG, HYDROMORPHONE (PF) 5 MG in SODIUM CHLORIDE 0.9% 200 ML EPIDURAL PRN (22:54)
[2018-08-02] MEDS: HEPARIN SODIUM,PORCINE 5,000 UNIT/ML 1 ML VIAL SQ SCH ×4 (01:02→23:15)
[2018-08-02] MEDS: metroNIDAZOLE-NS PMX 500 MG in SALINE 1 100ML.BAG IVPB SCH ×4 (01:02→23:05)
[2018-08-02] MEDS: D5-0.45% NACL WITH KCL 20MEQ/L 1,000 ML IV SCH ×3 (01:05→20:24)
[2018-08-02 07:46] LABS: Basophils % (A) 0 %; Eosinophils # (A) 0.1 k/uL (0-0.7); Eosinophils % (A) 2 %; HCT 40.1 % (39.0-53.0); HGB 12.8 gm/dL (13.0-17.5); Lymphocytes # (A) 0.9 k/uL (1.0-4.8); Lymphocytes % (A) 11 %; MCH 30.4 pg (25.0-35.0); Mean Platelet Volume 7.5; Monocytes # (A) 0.5 k/uL (0-1.0); Monocytes % (A) 7 %; Neutrophils # (A) 5.9 k/uL (1.3-7.7); Neutrophils % (A) 78 %; Platelet Count 158 k/uL (150-450); RBC 4.22 m/uL (4.30-5.90); RDW 12.4 % (11.5-15.5); WBC 7.5 k/uL (3.8-10.6)
[2018-08-02 08:04] LABS: Albumin 2.4 g/dL (3.5-5.0); Calcium 7.6 mg/dL (8.4-10.2); Magnesium 1.8 mg/dL (1.6-2.3); Phosphorus 2.5 mg/dL (2.5-4.5); Potassium 3.6 mmol/L (3.5-5.1); Total Bilirubin 2.1 mg/dL (0.2-1.3); Total Protein 4.6 g/dL (6.3-8.2)
[2018-08-02] MEDS: BISACODYL 10 MG SUPP RECTAL SCH (10:09)
[2018-08-02] MEDS: PANTOPRAZOLE 40 MG/10 ML VIAL IV SCH (10:31)
--- NOTE | 2018-08-02 11:45 | P.PN ---
Subjective Progress Note Date: 07/31/18 CHIEF COMPLAINT: Sigmoid volvulus HISTORY OF PRESENT ILLNESS: The patient is a 77-year-old gentleman status post sigmoid colectomy yesterday, 07/31/2018, postop day 1. He is resting comfortably. No new complaints. He is yet to ambulate. PHYSICAL EXAM: VITAL SIGNS: Reviewed GENERAL: Well-developed in no acute distress. HEENT: No sclera icterus. Extraocular movements grossly intact. Dry buccal mucosa. Head is atraumatic, normocephalic. No nasal drainage. He is hard of hearing NECK: Supple without lymphadenopathy. CHEST: Non-labored respirations and equal bilateral excursions. CARDIOVASCULAR: Palpable 2+ radial pulses. Regular rate and regular rhythm ABDOMEN: Soft. Nondistended. No peritonitis. Dressing clean dry and intact MUSCULOSKELETAL: No clubbing, cyanosis or edema. NEUROLOGIC: No focal or lateralizing signs. Cranial nerves II through XII grossly intact. PSYCH: Flat affect. SKIN: Well perfused. Dry skin turgor. : Dark-colored urine. LABS: Reviewed ASSESSMENT: 1. Sigmoid volvulus status post colectomy PLAN: 1. He's urine is very dark and creatinine is elevated. Will need fluid bolus. 2. Antibiotics per enhanced recovery bowel program 3. May benefit from PT OT evaluation Objective - Vital Signs Vital signs: Vital Signs Temp 98.9 F 08/02/18 10:29 Pulse 75 08/02/18 10:29 Resp 16 08/02/18 10:37 BP 128/76 08/02/18 10:29 Pulse Ox 96 08/02/18 10:29 Intake & Output 08/01/18 08/02/18 08/02/18 18:59 06:59 18:59 Intake Total 2351.5 Output Total 350 400 Balance -350 1951.5 Intake: Intake, IV Titration 2351.5 Amount D5-0.45% NaCl with KCl 1125 20Meq/l 1,000 ml @ 125 mls/hr IV .Q8H [facility] Rx#: [id number] Ropivacaine 250 mg 126.5 Hydromorphone (Pf) 5 mg In Sodium Chloride 0.9% 200 ml @ Per Protocol EPIDURAL .Q0M PRN Rx#: [id number] Sodium Chloride 0.9% 1, 1000 000 ml @ 499 mls/hr IV . Q2H1M [facility] Rx#:[id number] metroNIDAZOLE-NS PMX 500 100 mg In Saline 1 100ml.bag @ 100 mls/hr IVPB Q8HR [facility] Rx#:[id number] Output: Urine 350 400 Other: Voiding Method Indwelling Catheter Indwelling Catheter Indwelling Catheter - Labs CBC & Chem 7: 08/02/18 06:45 08/02/18 06:45 Labs: Abnormal Lab Results - Last 24 Hours (Table) 08/02/18 08/02/18 Range/Units 06:45 06:45 RBC 4.22 L (4.30-5.90) m/uL Hgb 12.8 L (13.0-17.5) gm/dL Lymphocytes # 0.9 L (1.0-4.8) k/uL Glucose 107 H (74-99) mg/dL Calcium 7.6 L (8.4-10.2) mg/dL Total Bilirubin 2.1 H (0.2-1.3) mg/dL AST 63 H (17-59) U/L Total Protein 4.6 L (6.3-8.2) g/dL Albumin 2.4 L (3.5-5.0) g/dL Microbiology - Last 24 Hours (Table) 08/01/18 10:45 Urine Culture - Preliminary Urine,Catheterized Assessment and Plan (1) S/P colectomy Current Visit: Yes Status: Acute Code(s): Z90.49 - ACQUIRED ABSENCE OF OTHER SPECIFIED PARTS OF DIGESTIVE TRACT SNOMED Code(s): 960829812 (2) Dementia Current Visit: Yes Status: Acute Code(s): F03.90 - UNSPECIFIED DEMENTIA WITHOUT BEHAVIORAL DISTURBANCE SNOMED Code(s): 33389978 (3) Hard of hearing Current Visit: Yes Status: Acute Code(s): H91.90 - UNSPECIFIED HEARING LOSS , UNSPECIFIED EAR SNOMED Code(s): 87525260 (4) History of head injury Current Visit: Yes Status: Acute Code(s): Z87.828 - PERSONAL HISTORY OF OTH (HEALED) PHYSICAL INJURY AND TRAUMA SNOMED Code(s): 775483048 (5) Dehydration Current Visit: Yes Status: Acute Code(s): E86.0 - DEHYDRATION SNOMED Code( s): 44484020 (6) Sigmoid volvulus Current Visit: Yes Status: Acute Code(s): K56.2 - VOLVULUS SNOMED Code(s) : 232631425
[2018-08-02] MEDS: SODIUM CHLORIDE 0.9% 1,000 ML IV SCH ×2 (11:56→13:00)
--- NOTE | 2018-08-02 13:43 | P.PN ---
Subjective Patient given with the colonic obstruction found to have sigmoid malleolus for which the patient underwent colectomy after failed therapeutic colonoscopy. She was started on levofloxacin and metronidazole by general surgery. Patient had low-grade fever because of which are bit septic workup which showed mild left-sided pleural effusion. Patient is being continued on antibiotics patient cannot give me any history because of his baseline advanced dementia. Patient is being continued on IV fluids will repeat a sick metabolic profile and CBC tomorrow. 08/02/2018 No overnight events patient is receiving IV fluids at 1 25 mL per hour patient appears to be still be dehydrated Active Medications Bisacodyl (Dulcolax) 10 mg RECTAL DAILY [facility] Last Admin: 08/02/18 10:09 Dose: Not Given Heparin Sodium (Porcine) (Heparin) 5,000 unit SQ Q8HR [facility] Last Admin: 08/02/18 10:31 Dose: 5,000 unit Hydromorphone HCl (Dilaudid) 0.5 mg IVP Q3HR PRN PRN Reason: Moderate to Severe Pain Last Admin: 07/31/18 10:35 Dose: 0.5 mg Potassium Chloride/Dextrose/Sod Cl (D5%-1/2ns-Kcl 20 Meq/L Iv Solution) 1,000 mls @ 125 mls/hr IV .Q8H [facility] Last Admin: 08/02/18 10:31 Dose: 125 mls/hr Ropivacaine 250 mg/Hydromorphone HCl 5 mg/ Sodium Chloride 250 mls @ 0 mls/hr EPIDURAL .Q0M PRN; Protocol PRN Reason: Pain Control Last Admin: 08/01/18 22:54 Dose: 5 mls/hr Levofloxacin 500 mg/ IV (Solution) 100 mls @ 100 mls/hr IVPB Q24H [facility] Last Admin: 08/01/18 18:53 Dose: 100 mls/hr Metronidazole 500 mg/ IV (Solution) 100 mls @ 100 mls/hr IVPB Q8HR [facility] Last Admin: 08/02/18 10:31 Dose: 100 mls/hr Sodium Chloride (Saline 0.9%) 1,000 mls @ 999 mls/hr IV .Q1H1M [facility] Stop: 08/02/18 13:46 Last Admin: 08/02/18 13:00 Dose: 999 mls/hr Mirtazapine (Remeron) 15 mg PO HS [facility] Last Admin: 08/01/18 22:13 Dose: Not Given Naloxone HCl (Narcan) 0.2 mg IV Q2M PRN PRN Reason: Opioid Reversal Pantoprazole Sodium (Protonix) 40 mg IV DAILY [facility] Last Admin: 08/02/18 10:31 Dose: 40 mg Objective - Vital Signs Vital signs: Vital Signs Temp 98.9 F 08/02/18 10:29 Pulse 75 08/02/18 10:29 Resp 16 08/02/18 10:37 BP 128/76 08/02/18 10:29 Pulse Ox 96 08/02/18 10:29 Intake & Output 08/01/18 08/02/18 08/02/18 18:59 06:59 18:59 Intake Total 2351.5 Output Total 350 400 Balance -350 1951.5 Intake: Intake, IV Titration 2351.5 Amount D5-0.45% NaCl with KCl 1125 20Meq/l 1,000 ml @ 125 mls/hr IV .Q8H [facility] Rx#: [id number] Ropivacaine 250 mg 126.5 Hydromorphone (Pf) 5 mg In Sodium Chloride 0.9% 200 ml @ Per Protocol EPIDURAL .Q0M PRN Rx#: [id number] Sodium Chloride 0.9% 1, 1000 000 ml @ 499 mls/hr IV . Q2H1M [facility] Rx#:[id number] metroNIDAZOLE-NS PMX 500 100 mg In Saline 1 100ml.bag @ 100 mls/hr IVPB Q8HR [facility] Rx#:[id number] Output: Urine 350 400 Other: Voiding Method Indwelling Catheter Indwelling Catheter Indwelling Catheter - Exam PHYSICAL EXAMINATION: GENERAL: The patient is drowsy and oriented x1-2 is his baseline, not in any acute distress. Well developed, well nourished. HEENT: Pupils are round and equally reacting to light. EOMI. No scleral icterus. No conjunctival pallor. Normocephalic, atraumatic. No pharyngeal erythema. No thyromegaly. CARDIOVASCULAR: S1 and S2 present. No murmurs, rubs, or gallops. PULMONARY: Chest is clear to auscultation, no wheezing or crackles. ABDOMEN: Sluggish bowel sounds surgical site area clean MUSCULOSKELETAL: No joint swelling or deformity. EXTREMITIES: No cyanosis, clubbing, or pedal edema. NEUROLOGICAL: Gross neurological examination did not reveal any focal deficits. SKIN: No rashes. - Labs CBC & Chem 7: 08/02/18 06:45 08/02/18 06:45 Labs: Abnormal Lab Results - Last 24 Hours (Table) 08/02/18 08/02/18 Range/Units 06:45 06:45 RBC 4.22 L (4.30-5.90) m/uL Hgb 12.8 L (13.0-17.5) gm/dL Lymphocytes # 0.9 L (1.0-4.8) k/uL Glucose 107 H (74-99) mg/dL Calcium 7.6 L (8.4-10.2) mg/dL Total Bilirubin 2.1 H (0.2-1.3) mg/dL AST 63 H (17-59) U/L Total Protein 4.6 L (6.3-8.2) g/dL Albumin 2.4 L (3.5-5.0) g/dL Microbiology - Last 24 Hours (Table) 08/01/18 10:45 Urine Culture - Preliminary Urine,Catheterized Assessment and Plan Plan: -Colonic Obstruction secondary to sigmoid volvulus: Status post colectomy, patient is on antibiotics for possible colitis from Gen. surgery -Low-grade fever septic workup with chest x-ray a urine cultures, blood cultures. Patient is being continued on levofloxacin and metronidazole for above-mentioned reasons -Advanced Alzheimer's dementia avoid benzodiazepines barbiturates opiates and anticholinergic medications -Depression: Antidepressants will be resumed as soon as he can tolerate by mouth medications. Thank you for consultation and will continue to follow the patient
--- NOTE | 2018-08-02 15:03 | P.PN ---
Subjective Progress Note Date: 08/02/18 CHIEF COMPLAINT: Sigmoid volvulus HISTORY OF PRESENT ILLNESS: The patient is a 77-year-old gentleman status post sigmoid colectomy for sigmoid volvulus, 07/31/2018, postop day 2. Family is at bedside. He has advanced Alzheimer's disease and is minimally verbal. Family is concerned to start of diet. Urine has been extremely dark. He is getting a fluid bolus by my request. PHYSICAL EXAM: VITAL SIGNS: Reviewed GENERAL: Well-developed in no acute distress. HEENT: No sclera icterus. Extraocular movements grossly intact. Dry buccal mucosa. Head is atraumatic, normocephalic. No nasal drainage. He is hard of hearing NECK: Supple without lymphadenopathy. CHEST: Non-labored respirations and equal bilateral excursions. CARDIOVASCULAR: Palpable 2+ radial pulses. Regular rate and regular rhythm ABDOMEN: Soft. Nondistended. Dressing clean dry and intact MUSCULOSKELETAL: No clubbing, cyanosis or edema. NEUROLOGIC: No focal or lateralizing signs. Cranial nerves II through XII grossly intact. PSYCH: Flat affect. Alert and oriented to person. SKIN: Well perfused. Dry skin turgor. : Sherman present and decrease dark amy urine. LABS: Reviewed ASSESSMENT: 1. Sigmoid volvulus status post colectomy PLAN: 1. IV fluids are crusted again today as creatinine had an elevated. 2. Start of clear liquid diet today. 3. Continue Sherman and epidural. Objective - Vital Signs Vital signs: Vital Signs Temp 98.2 F 08/02/18 14:46 Pulse 74 08/02/18 14:46 Resp 16 08/02/18 14:46 BP 119/71 08/02/18 14:46 Pulse Ox 97 08/02/18 14:46 Intake & Output 08/01/18 08/02/18 08/02/18 18:59 06:59 18:59 Intake Total 2351.5 Output Total 350 400 Balance -350 1951.5 Intake: Intake, IV Titration 2351.5 Amount D5-0.45% NaCl with KCl 1125 20Meq/l 1,000 ml @ 125 mls/hr IV .Q8H [facility] Rx#: [id number] Ropivacaine 250 mg 126.5 Hydromorphone (Pf) 5 mg In Sodium Chloride 0.9% 200 ml @ Per Protocol EPIDURAL .Q0M [facility]N Rx#: [id number] Sodium Chloride 0.9% 1, 1000 000 ml @ 499 mls/hr IV . Q2H1M [facility] Rx#:[id number] metroNIDAZOLE-NS PMX 500 100 mg In Saline 1 100ml.bag @ 100 mls/hr IVPB Q8HR [facility] Rx#:[id number] Output: Urine 350 400 Other: Voiding Method Indwelling Catheter Indwelling Catheter Indwelling Catheter - Labs CBC & Chem 7: 08/02/18 06:45 08/02/18 06:45 Labs: Abnormal Lab Results - Last 24 Hours (Table) 08/02/18 08/02/18 Range/Units 06:45 06:45 RBC 4.22 L (4.30-5.90) m/uL Hgb 12.8 L (13.0-17.5) gm/dL Lymphocytes # 0.9 L (1.0-4.8) k/uL Glucose 107 H (74-99) mg/dL Calcium 7.6 L (8.4-10.2) mg/dL Total Bilirubin 2.1 H (0.2-1.3) mg/dL AST 63 H (17-59) U/L Total Protein 4.6 L (6.3-8.2) g/dL Albumin 2.4 L (3.5-5.0) g/dL Microbiology - Last 24 Hours (Table) 08/01/18 10:45 Urine Culture - Final Urine,Catheterized Assessment and Plan (1) S/P colectomy Current Visit: Yes Status: Acute Code(s): Z90.49 - ACQUIRED ABSENCE OF OTHER SPECIFIED PARTS OF DIGESTIVE TRACT SNOMED Code(s): 827908008 (2) Dementia Current Visit: Yes Status: Acute Code(s): F03.90 - UNSPECIFIED DEMENTIA WITHOUT BEHAVIORAL DISTURBANCE SNOMED Code(s): 12525111 (3) Hard of hearing Current Visit: Yes Status: Acute Code(s): H91.90 - UNSPECIFIED HEARING LOSS , UNSPECIFIED EAR SNOMED Code(s): 94212012 (4) History of head injury Current Visit: Yes Status: Acute Code(s): Z87.828 - PERSONAL HISTORY OF OTH (HEALED) PHYSICAL INJURY AND TRAUMA SNOMED Code(s): 131484198 (5) Dehydration Current Visit: Yes Status: Acute Code(s): E86.0 - DEHYDRATION SNOMED Code( s): 69796314 (6) Sigmoid volvulus Current Visit: Yes Status: Acute Code(s): K56.2 - VOLVULUS SNOMED Code(s) : 654567744
[2018-08-02] MEDS: LEVOFLOXACIN 500MG-D5W PMX 500 MG in DEXTROSE/WATER 1 100ML.BAG IVPB SCH (17:43)
[2018-08-02] MEDS: MIRTAZAPINE 15 MG TAB PO SCH (20:24)
[2018-08-02] MEDS: ROPIVACAINE 250 MG, HYDROMORPHONE (PF) 5 MG in SODIUM CHLORIDE 0.9% 200 ML EPIDURAL PRN (22:14)
[2018-08-03] MEDS: D5-0.45% NACL WITH KCL 20MEQ/L 1,000 ML IV SCH ×4 (05:25→21:29)
[2018-08-03 06:44] LABS: Anion Gap 4 mmol/L; Blood Urea Nitrogen 11 mg/dL (9-20); Calcium 7.7 mg/dL (8.4-10.2); Carbon Dioxide 25 mmol/L (22-30); Chloride 109 mmol/L (98-107); Glucose 105 mg/dL (74-99); Potassium 3.5 mmol/L (3.5-5.1); Sodium 138 mmol/L (137-145)
--- NOTE | 2018-08-03 06:54 | P.PN ---
Progress Note - Text Progress Note Date: 08/03/18 epidural will be out today, discussed with primary team
--- NOTE | 2018-08-03 06:54 | P.PN ---
Progress Note - Text Progress Note Date: 08/02/18 patient denies any complaints continue epidural at current rate, consider removing epidural tmw
[2018-08-03] MEDS: PANTOPRAZOLE 40 MG/10 ML VIAL IV SCH (09:04)
[2018-08-03] MEDS: HEPARIN SODIUM,PORCINE 5,000 UNIT/ML 1 ML VIAL SQ SCH ×2 (09:05→16:55)
[2018-08-03] MEDS: metroNIDAZOLE-NS PMX 500 MG in SALINE 1 100ML.BAG IVPB SCH ×2 (09:05→16:55)
[2018-08-03] MEDS: BISACODYL 10 MG SUPP RECTAL SCH (09:05)
[2018-08-03] MEDS ORDERED: IPRATROPIUM-ALBUTEROL 3 ML NEB INHALATION PRN (12:02)
--- NOTE | 2018-08-03 13:58 | P.PN ---
Subjective Progress Note Date: 08/03/18 Principal diagnosis: Sigmoid volvulus Patient pleasantly confused. Appears to be at baseline. Complaining of mild discomfort. Tolerating clears. He did have a bowel movement. Epidural was removed today. T-max 100. White blood cell count normal when checked yesterday. Objective - Vital Signs Vital signs: Vital Signs Temp 99.8 F H 08/03/18 09:04 Pulse 89 08/03/18 09:04 Resp 16 08/03/18 09:04 BP 147/84 08/03/18 09:04 Pulse Ox 96 08/03/18 09:04 Intake & Output 08/02/18 08/03/18 08/03/18 18:59 06:59 18:59 Intake Total 2900 554.167 Output Total 500 1600 Balance 2400 -1045.833 Intake: Intake, IV Titration 2900 554.167 Amount D5-0.45% NaCl with KCl 800 437.5 20Meq/l 1,000 ml @ 125 mls/hr IV .Q8H [facility] Rx#: [id number] Levofloxacin 500Mg-D5w 100 Pmx 500 mg In Dextrose/ Water 1 100ml.bag @ 100 mls/hr IVPB Q24H [facility] Rx#: [id number] Ropivacaine 250 mg 116.667 Hydromorphone (Pf) 5 mg In Sodium Chloride 0.9% 200 ml @ Per Protocol EPIDURAL .Q0M [facility] Rx#: [id number] Sodium Chloride 0.9% 1, 2000 000 ml @ 999 mls/hr IV . Q1H1M [facility] Rx#:[id number] Output: Urine 500 1600 Uretheral (Sherman) 500 Other: Voiding Method Indwelling Catheter Indwelling Catheter Indwelling Catheter # Bowel Movements 2 - Exam Abdomen: Soft, mild incisional tenderness, nondistended, incision clean and dry - Labs CBC & Chem 7: 08/02/18 06:45 08/03/18 06:06 Labs: Abnormal Lab Results - Last 24 Hours (Table) 08/03/18 Range/Units 06:06 Chloride 109 H (98-107) mmol/L Glucose 105 H (74-99) mg/dL Calcium 7.7 L (8.4-10.2) mg/dL Microbiology - Last 24 Hours (Table) 08/01/18 10:45 Urine Culture - Final Urine,Catheterized Assessment and Plan (1) Sigmoid volvulus Narrative/Plan: Gradually increase diet. Monitor bowel function. Ambulate. Repeat CBC tomorrow. Current Visit: Yes Status: Acute Code(s): K56.2 - VOLVULUS SNOMED Code(s) : 733976188
[2018-08-03 14:43] VITALS: BMI 23.7
[2018-08-03] MEDS: IPRATROPIUM-ALBUTEROL 3 ML NEB INHALATION SCH ×2 (15:58→20:47)
[2018-08-03] MEDS: HYDROmorphone 0.5 MG/0.5 ML SYRINGE IVP PRN (17:02)
[2018-08-03] MEDS: LEVOFLOXACIN 500MG-D5W PMX 500 MG in DEXTROSE/WATER 1 100ML.BAG IVPB SCH (18:15)
--- NOTE | 2018-08-03 19:13 | P.PN ---
Subjective Progress Note Date: 08/03/18 Progress note being dictated for Dr. 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 She was started on levofloxacin and metronidazole by general surgery. Patient had low-grade fever because of which are bit septic workup which showed mild left-sided pleural effusion. Patient is being continued on antibiotics patient cannot give me any history because of his baseline advanced dementia. Patient is being continued on IV fluids will repeat a sick metabolic profile and CBC tomorrow. 08/03/2018 Sitting up in chair, pleasantly confused presently confused T-max 100, WBC pending. Urine culture no growth. Physical therapist reports patient became short of breath, significant wheezing upon transitioning to chair. Epidural being discontinued today. Creatinine 0.83. Sodium 138. Objective - Vital Signs Vital signs: Vital Signs Temp 97.8 F 08/03/18 15:00 Pulse 96 08/03/18 16:12 Resp 16 08/03/18 16:00 BP 116/73 08/03/18 15:00 Pulse Ox 96 08/03/18 15:00 Intake & Output 08/02/18 08/03/18 08/03/18 18:59 06:59 18:59 Intake Total 2900 554.167 975 Output Total 500 1600 900 Balance 2400 -1045.833 75 Weight 83.915 kg Intake: Intake, IV Titration 2900 554.167 975 Amount D5-0.45% NaCl with KCl 800 437.5 875 20Meq/l 1,000 ml @ 125 mls/hr IV .Q8H [facility] Rx#: [id number] Levofloxacin 500Mg-D5w 100 Pmx 500 mg In Dextrose/ Water 1 100ml.bag @ 100 mls/hr IVPB Q24H [facility] Rx#: [id number] Ropivacaine 250 mg 116.667 Hydromorphone (Pf) 5 mg In Sodium Chloride 0.9% 200 ml @ Per Protocol EPIDURAL .Q0M PRN Rx#: [id number] Sodium Chloride 0.9% 1, 2000 000 ml @ 999 mls/hr IV . Q1H1M [facility] Rx#:[id number] metroNIDAZOLE-NS PMX 500 100 mg In Saline 1 100ml.bag @ 100 mls/hr IVPB Q8HR [facility] Rx#:[id number] Output: Urine 500 1600 900 Uretheral (Sherman) 500 Other: Voiding Method Indwelling Catheter Indwelling Catheter Indwelling Catheter # Bowel Movements 2 - Exam GENERAL: The patient is sitting up in chair, alert and oriented x1-2 ,no acute distress. Minimally converses. HEENT: Pupils are round and equal. Left eye blindness. No conjunctival pallor. Normocephalic, atraumatic. Hard of hearing. CARDIOVASCULAR: S1 and S2 present. No murmurs, rubs, or gallops. PULMONARY: Chest is clear to auscultation, mild expiratory wheezing, no crackles. ABDOMEN: Soft, nondistended, status post surgery, hypoactive bowel sounds. Dressing clean dry and intact. EXTREMITIES: No cyanosis, clubbing, or pedal edema. NEUROLOGICAL: Gross neurological examination did not reveal any focal deficits. SKIN: Bilateral heels with tender large unpopped blisters with extending redness,edema - Labs CBC & Chem 7: 08/02/18 06:45 08/03/18 06:06 Labs: Abnormal Lab Results - Last 24 Hours (Table) 08/03/18 Range/Units 06:06 Chloride 109 H (98-107) mmol/L Glucose 105 H (74-99) mg/dL Calcium 7.7 L (8.4-10.2) mg/dL Microbiology - Last 24 Hours (Table) 08/01/18 10:45 Urine Culture - Final Urine,Catheterized Assessment and Plan Assessment: -Colonic Obstruction secondary to sigmoid volvulus: Status post colectomy, patient is on antibiotics for possible colitis from Gen. surgery -Low-grade fever septic workup with chest x-ray a urine cultures, blood cultures. Patient is being continued on levofloxacin and metronidazole for above-mentioned reasons -Advanced Alzheimer's dementia avoid benzodiazepines barbiturates opiates and anticholinergic medications -Depression: Antidepressants will be resumed as soon as he can tolerate by mouth medications. -Bilateral heel wounds,blisters Plan: Continue on current medication regime ,monitoring and symptomatic treatment. CBC added on to labs, pending. Infectious disease consulted. Nebulized bronchodilators added to med regime. Portable chest x-ray ordered.PT/ OT . Pain management .diet advancement as per surgery.Thank you for allowing us to participate in the care of this pleasant gentleman. The impression and plan of care has been dictated as directed. : I performed a history and examination of this patient, discussed the same with the dictator. I agree with the dictator's note ,documented as a scribe. Any additional findings or plans will be noted.
--- NOTE | 2018-08-03 19:30 | XR ---
EXAMINATION TYPE: XR chest 1V portable DATE OF EXAM: 08/03/2018 COMPARISON: 08/01/2018 HISTORY: Chest pain TECHNIQUE: Single frontal view of the chest is obtained. FINDINGS: There is coarse interstitial density in the mid and lower lung sierra. There is point spac ing. There is slight blunting of the right costophrenic angle. Heart is probably enlarged. IMPRESSION: Interstitial pulmonary fibrotic changes. There is increasing infiltrate at the lung base s compared to last exam. Small right pleural effusion. No obvious heart failure.
[2018-08-03] MEDS: MIRTAZAPINE 15 MG TAB PO SCH (21:29)
[2018-08-03] MEDS: CEFEPIME 2 GM in SODIUM CHLORIDE 0.9% 50 ML IVPB SCH (21:57)
--- NOTE | 2018-08-03 22:28 | CONS ---
CONSULTATION DATE OF SERVICE: 08/03/2018. REASON FOR CONSULTATION: 1. Fever. 2. Bilateral heel pressure ulcer. HISTORY OF PRESENT ILLNESS: The patient is a 77-year-old male who presented to the ER at [facility] on 07/30/2018 with an episode of vomiting and abdominal pain. Apparently his symptoms started the day he was brought into the hospital. The patient was noticed to have increased bloating. The patient did have a CT abdominal and pelvis which did show sigmoid volvulus with no pneumatosis, some inflammatory changes at the site. The patient did have NG tube placed in the ER and subsequently admitted to the hospital. The patient did have a decompressive colonoscopy that was not successful. Subsequently the patient was taken to the OR on 07/31/2018 and the patient is status post sigmoid colectomy with end-to-end anastomosis. The patient has been empirically treated with Levaquin and Flagyl because of his PENICILLIN ALLERGY. The patient apparently did have a low-grade fever of 100 degrees Fahrenheit early this morning and has been running low- grade fever off the O2 with 99.72 to be the highest temp. The patient has been breathing comfortably. No agitation has been noticed. No further nausea, vomiting, or any diarrhea. The patient also noticed to have a bilateral heel blisters. He has been admitted to the hospital. I was asked to see the patient to evaluate his heels and also his low grade fever. Most of the information has been obtained from thorough review of the chart and talking to nursing staff. The patient himself does have underlying dementia and not a good historian. The patient did have an x-ray completed this evening which did show increasing infiltrate in the lung bases compared to last exam. REVIEW OF SYSTEMS: Could not be reliably obtained. The positive points have been mentioned in HPI. PAST MEDICAL HISTORY: Dementia, blind in the left eye, hard of hearing and depression. PAST SURGICAL HISTORY: Previous orthopedic surgery. SOCIAL HISTORY: Forty year smoking. Rarely drinks. No drug use. FAMILY HISTORY: No pertinent findings noticed. ALLERGIES: TO PENICILLIN in childhood. No clear history of any anaphylaxis. MEDICATIONS: The patient is currently on DuoNeb, heparin, Dilaudid, Flagyl, Levaquin, Remeron, Narcan and Protonix. EXAMINATION: Blood pressure is 115/73 with a pulse of 81, temperature 97.8, T-max 100. He is 96% on room air. General description is an elderly male up in the chair in no distress. No tachypnea or accessory muscles of respiration use. HEENT: Shows slight pallor. No scleral icterus. Oral mucosa membranes dry. No significant erythema or thrush. Neck: Trachea central. No thyromegaly. Lungs unlabored breathing, decreased breath sounds at the bases. No wheeze or crackles. Heart S1, S2. Regular rate and rhythm. ABDOMEN: Soft. No tenderness. No guarding or rigidity. Extremities: No edema of the feet. Bilaterally he did have a significant blister formation most marked on the right heel. However no erythema. Neurological: The patient is awake, alert, orientation could not be determined because of underlying dementia. LABS: No CBC was done today. His white count normal 7.5 yesterday. His BUN of 11, creatinine 0.83 with bilirubin mildly elevated. No blood cultures. Chest x-ray report as mentioned above. DIAGNOSTIC IMPRESSION/PLAN: 1. Patient with low-grade fever of 100 in this patient who has been admitted to the hospital with mild volvulus failing decompressive colonoscopy, now status post sigmoid colectomy and anastomosis. The patient has developing bilateral basal infiltrates with question of possible developing pneumonia as abdomen was soft on clinical examination. Will need to cover for the enteric gram-negative pathogen. 2. Patient with bilateral heel stage I pressure ulcer with significant blister formation, but no cellulitis. 3. Patient with a PENICILLIN allergy that limits the number of antibiotics that could be safely used. PLAN: 1. Discontinue the Levaquin. Vanco was started. 2. We will obtain blood cultures x2 STAT. 3. Start the patient on cefepime 2 grams q.12 and continue with Flagyl 500 mg every 8 hours. 4. Bilateral heel protection, no need for any local cream or dressing. 5. We will follow up on clinical condition and culture to further adjust medication if needed. Thank you for this consultation. Will follow this patient along with you. MMODL / IJN: [id number] /
[2018-08-04] MEDS: metroNIDAZOLE-NS PMX 500 MG in SALINE 1 100ML.BAG IVPB SCH ×3 (00:11→17:02)
[2018-08-04] MEDS: HEPARIN SODIUM,PORCINE 5,000 UNIT/ML 1 ML VIAL SQ SCH ×3 (00:18→17:55)
[2018-08-04] MEDS: HYDROmorphone 0.5 MG/0.5 ML SYRINGE IVP PRN (00:18)
[2018-08-04 07:24] LABS: Basophils % (A) 0 %; Eosinophils # (A) 0.3 k/uL (0-0.7); Eosinophils % (A) 4 %; HCT 41.6 % (39.0-53.0); HGB 13.9 gm/dL (13.0-17.5); Lymphocytes # (A) 0.8 k/uL (1.0-4.8); Lymphocytes % (A) 12 %; MCH 31.8 pg (25.0-35.0); MCHC 33.4 g/dL (31.0-37.0); MCV 95.2 fL (80.0-100.0); Mean Platelet Volume 7.7; Monocytes # (A) 0.4 k/uL (0-1.0); Monocytes % (A) 7 %; Neutrophils # (A) 4.8 k/uL (1.3-7.7); Neutrophils % (A) 74 %; Platelet Count 201 k/uL (150-450); RBC 4.37 m/uL (4.30-5.90); RDW 12.5 % (11.5-15.5); WBC 6.5 k/uL (3.8-10.6)
[2018-08-04] MEDS: PANTOPRAZOLE 40 MG/10 ML VIAL IV SCH (07:38)
[2018-08-04 07:48] LABS: Anion Gap 7 mmol/L; Blood Urea Nitrogen 10 mg/dL (9-20); Calcium 7.9 mg/dL (8.4-10.2); Carbon Dioxide 23 mmol/L (22-30); Chloride 108 mmol/L (98-107); Glucose 101 mg/dL (74-99); Potassium 3.8 mmol/L (3.5-5.1); Sodium 138 mmol/L (137-145)
[2018-08-04] MEDS: IPRATROPIUM-ALBUTEROL 3 ML NEB INHALATION SCH ×4 (08:50→21:03)
[2018-08-04] MEDS: CEFEPIME 2 GM in SODIUM CHLORIDE 0.9% 50 ML IVPB SCH ×2 (11:42→21:40)
--- NOTE | 2018-08-04 13:24 | P.PN ---
Subjective Progress Note Date: 08/04/18 Principal diagnosis: Sigmoid volvulus Patient with some bloating today. Having some discomfort although appears fairly comfortable. Patient is not able to compare his discomfort today to previous days. White blood cell count normal. He is afebrile. Small bowel movement yesterday per nursing. No vomiting. Objective - Vital Signs Vital signs: Vital Signs Temp 98.6 F 08/04/18 07:34 Pulse 86 08/04/18 08:59 Resp 18 08/04/18 08:50 BP 120/78 08/04/18 07:34 Pulse Ox 96 08/04/18 08:50 Intake & Output 08/03/18 08/04/18 08/04/18 18:59 06:59 18:59 Intake Total 975 1000 Output Total 900 1000 Balance 75 0 Weight 83.915 kg Intake: Intake, IV Titration 975 1000 Amount D5-0.45% NaCl with KCl 875 20Meq/l 1,000 ml @ 125 mls/hr IV .Q8H [facility] Rx#: [id number] D5-0.45% NaCl with KCl 1000 20Meq/l 1,000 ml @ 75 mls /hr IV .[id number] [facility] Rx#: [id number] metroNIDAZOLE-NS PMX 500 100 mg In Saline 1 100ml.bag @ 100 mls/hr IVPB Q8HR [facility] Rx#:[id number] Output: Urine 900 1000 Other: Voiding Method Indwelling Catheter Indwelling Catheter Indwelling Catheter - Exam Abdomen: Soft, distended, tympanic, incision clean and dry - Labs CBC & Chem 7: 08/04/18 06:36 08/04/18 06:36 Labs: Abnormal Lab Results - Last 24 Hours (Table) 08/04/18 08/04/18 Range/Units 06:36 06:36 Lymphocytes # 0.8 L (1.0-4.8) k/uL Chloride 108 H (98-107) mmol/L Glucose 101 H (74-99) mg/dL Calcium 7.9 L (8.4-10.2) mg/dL Assessment and Plan (1) Sigmoid volvulus Narrative/Plan: Will make nothing by mouth at this time. Toradol for pain control. Apparently he was having some confusion this morning thought to be in part related to the Dilaudid he was getting. Increase activity as able. Patient with bilateral heel ulcers being managed by infectious disease at this time. Current Visit: Yes Status: Acute Code(s): K56.2 - VOLVULUS SNOMED Code(s) : 145953198
[2018-08-04] MEDS ORDERED: FUROSEMIDE 10 MG/ML 2 ML VIAL IV STA (13:52)
--- NOTE | 2018-08-04 14:38 | P.PN ---
Subjective Progress Note Date: 08/04/18 Progress note being dictated for Dr. Sandoval. 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 She was started on levofloxacin and metronidazole by general surgery. Patient had low-grade fever because of which are bit septic workup which showed mild left-sided pleural effusion. Patient is being continued on antibiotics patient cannot give me any history because of his baseline advanced dementia. Patient is being continued on IV fluids will repeat a sick metabolic profile and CBC tomorrow. 08/03/2018 Sitting up in chair, pleasantly confused presently confused T-max 100, WBC pending. Urine culture no growth. Physical therapist reports patient became short of breath, significant wheezing upon transitioning to chair. Epidural being discontinued today. Creatinine 0.83. Sodium 138. 08/04/18 lethargic this morning, received Dilaudid around midnight. Dilaudid discontinued, now receiving Toradol for pain management. Appears comfortable, minimally to no conversing- baseline, Rhonchorous, IV fluids decreased in addition to Lasix 20 IV push ordered. Evaluated by infectious disease regarding bilateral heel ulcers, recommendations noted. Afebrile, normal WBC. No nausea, vomiting or diarrhea. Staff reports small bowel movement yesterday. Abdomen appears more bloated/tympanic today, diet downgraded-NPO. Objective - Vital Signs Vital signs: Vital Signs Temp 98.6 F 08/04/18 07:34 Pulse 86 08/04/18 08:59 Resp 18 08/04/18 08:50 BP 120/78 08/04/18 07:34 Pulse Ox 96 08/04/18 08:50 Intake & Output 08/03/18 08/04/18 08/04/18 18:59 06:59 18:59 Intake Total 975 1000 Output Total 900 1000 1200 Balance 75 0 -1200 Weight 83.915 kg Intake: Intake, IV Titration 975 1000 Amount D5-0.45% NaCl with KCl 875 20Meq/l 1,000 ml @ 125 mls/hr IV .Q8H [facility] Rx#: [id number] D5-0.45% NaCl with KCl 1000 20Meq/l 1,000 ml @ 75 mls /hr IV .[id number] [facility] Rx#: [id number] metroNIDAZOLE-NS PMX 500 100 mg In Saline 1 100ml.bag @ 100 mls/hr IVPB Q8HR [facility] Rx#:[id number] Output: Urine 900 1000 1200 Other: Voiding Method Indwelling Catheter Indwelling Catheter Indwelling Catheter - Exam GENERAL: The patient is sitting up in chair, alert and oriented x1-2 ,no acute distress. Minimally converses. HEENT: Pupils are round and equal. Left eye blindness. No conjunctival pallor. Normocephalic, atraumatic. Hard of hearing. CARDIOVASCULAR: S1 and S2 present. No murmurs, rubs, or gallops. PULMONARY: Chest is clear to auscultation, mild expiratory wheezing, no crackles. ABDOMEN: Soft, distended, status post surgery, tympanic, Dressing clean dry and intact. EXTREMITIES: No cyanosis, clubbing, or pedal edema. NEUROLOGICAL: Gross neurological examination did not reveal any focal deficits. SKIN: Bilateral heels with tender large unpopped blisters with extending redness,edema - Labs CBC & Chem 7: 08/04/18 06:36 08/04/18 06:36 Labs: Abnormal Lab Results - Last 24 Hours (Table) 08/04/18 08/04/18 Range/Units 06:36 06:36 Lymphocytes # 0.8 L (1.0-4.8) k/uL Chloride 108 H (98-107) mmol/L Glucose 101 H (74-99) mg/dL Calcium 7.9 L (8.4-10.2) mg/dL Assessment and Plan Assessment: -Colonic Obstruction secondary to sigmoid volvulus: Status post colectomy, patient is on antibiotics for possible colitis per surgery -Possible ileus -Possible Sepsis secondary to the above,workup in progress -Advanced Alzheimer's dementia -Depression -Bilateral heel wounds,blisters Plan: Continue on current medication regime ,monitoring and symptomatic treatment. PICC line pending for initiation of TPN .NPO,suppository ordered as per surgery. Pain management .continue on IV antibiotics/skin-heel care as per ID.Thank you for allowing us to participate in the care of this pleasant gentleman. The impression and plan of care has been dictated as directed. : I performed a history and examination of this patient, discussed the same with the dictator. I agree with the dictator's note ,documented as a scribe. Any additional findings or plans will be noted.
--- NOTE | 2018-08-04 16:26 | IR ---
EXAMINATION TYPE: IR cvc insert >=5 years DATE OF EXAM: 08/04/2018 COMPARISON: NONE CLINICAL HISTORY: Postop Needs long-term intravenous access for antibiotics, total parenteral nutriti on. PROCEDURE: After informed consent, the skin overlying the right basilic vein was localized with ultrasound and n oted to be compressible and patent. An ultrasound image was obtained and submitted on the patient's chart. The overlying skin was prepped and draped and Lidocaine was used for local anesthesia. A ski n reema was made with a scalpel. Access was gained to the vein under ultrasound guidance with a 21 ga uge needle and a 0.018 inch wire was advanced. Access site was dilated with Peel-Away sheath and cat heter tailored to the appropriate length and advanced such that the distal tip is at the cavoatrial j unction. Spot image was obtained verifying placement. Catheter was fixed to the skin and a sterile dressing was placed following hemostasis. Catheter was aspirated and flushed with saline. Patient w as discharged in stable condition without complication.Maximal barrier technique is utilized. Ultras ound image is documented on the chart. Ultrasound used with sterile technique. Fluoro time and fluoroscopic images submitted to document procedure: 0.9 minutes fluoroscopy time, 37 9 intraoperative images IMPRESSION: STATUS POST ULTRASOUND AND FLUOROSCOPIC GUIDED PICC LINE PLACEMENT, READY FOR USE. THIS PROCEDURE WAS PERFORMED BY THE UNDERSIGNED.
[2018-08-04] MEDS: BISACODYL 10 MG SUPP RECTAL SCH (17:49)
[2018-08-04] MEDS: D5-0.45% NACL WITH KCL 20MEQ/L 1,000 ML IV SCH ×2 (19:50→21:40)
[2018-08-04] MEDS: MIRTAZAPINE 15 MG TAB PO SCH (21:40)
[2018-08-04] MEDS: KETOROLAC 30 MG/ML 1 ML VIAL IVP PRN (21:48)
--- NOTE | 2018-08-04 23:32 | PN ---
PROGRESS NOTE DATE OF SERVICE: 08/04/2018. REASON FOR FOLLOWUP: 1. Fever, question of pneumonia. 2. Patient with bilateral heel stage I pressure ulcer. INTERVAL HISTORY: The patient's overall fever pattern has improved. Highest temperature today has been 99.1. The patient has been made n.p.o. Plan for possible TPN because patient is not tolerating his food and did have some abdominal distention. The patient is not a good historian. He denies having any chest pain or cough to me. No nausea, no vomiting. PHYSICAL EXAMINATION: Blood pressure 130/74 with a pulse of 89, temperature 98.1. He is 95% on room air. GENERAL DESCRIPTION: An elderly male lying in bed in no distress. RESPIRATORY SYSTEM: Unlabored breathing with decreased breath sounds in the bases. No wheeze. HEART: S1, S2. Regular rate and rhythm. ABDOMEN: Soft, no distention. No rigidity or rigidity. He is currently protected with heel boots. LABS: Hemoglobin 13, white count 6.5, BUN of 10, creatinine 0.74. DIAGNOSTIC IMPRESSION AND PLAN: 1. Patient with low-grade fever with increasing infiltrate at lung bases, concern for possible pneumonia. Now the patient is having some abdominal distention and not tolerating tube feeding. The patient is status post laparotomy for sigmoid volvulus, status post resection and end-to-end anastomosis. The patient is currently covered with cefepime and Flagyl. pneumonia as well as possible abdominal process. 2. Bilateral heel stage I pressure ulcer, keep the area off the pressure in heel protector. We will monitor his clinical course closely. Continue supportive care. MMODL / IJN: [id number] /
[2018-08-05] MEDS: metroNIDAZOLE-NS PMX 500 MG in SALINE 1 100ML.BAG IVPB SCH ×4 (00:26→23:38)
[2018-08-05] MEDS: HEPARIN SODIUM,PORCINE 5,000 UNIT/ML 1 ML VIAL SQ SCH ×4 (00:26→23:40)
[2018-08-05] MEDS: KETOROLAC 30 MG/ML 1 ML VIAL IVP PRN ×2 (03:33→17:04)
[2018-08-05] MEDS: IPRATROPIUM-ALBUTEROL 3 ML NEB INHALATION SCH ×4 (07:50→20:38)
--- NOTE | 2018-08-05 10:50 | P.PN ---
Subjective Progress Note Date: 08/05/18 Principal diagnosis: Sigmoid volvulus Patient was evaluated earlier this morning. At that time he had not had a bowel movement yet today. They believed he had a smaller one yesterday. He remained distended. Denies any significant pain. No vomiting. He is afebrile with stable vital signs. Morning labs pending. Objective - Vital Signs Vital signs: Vital Signs Temp 98.1 F 08/05/18 07:00 Pulse 84 08/05/18 08:04 Resp 16 08/05/18 07:00 BP 135/84 08/05/18 07:00 Pulse Ox 95 08/05/18 07:00 Intake & Output 08/04/18 08/05/18 08/05/18 18:59 06:59 18:59 Intake Total 600 Output Total 3000 1800 Balance -3000 -1200 Intake: Intake, IV Titration 600 Amount D5-0.45% NaCl with KCl 600 20Meq/l 1,000 ml @ 75 mls /hr IV .[id number] [facility] Rx#: [id number] Output: Urine 3000 1800 Other: Voiding Method Indwelling Catheter - Exam Abdomen: Soft, distended, tympanic, mild tenderness - Labs CBC & Chem 7: 08/04/18 06:36 08/04/18 06:36 Labs: Microbiology - Last 24 Hours (Table) 08/03/18 20:04 Blood Culture - Preliminary Blood No Growth after 24 hours Assessment and Plan (1) Sigmoid volvulus Narrative/Plan: After I evaluated the patient apparently he did have a large liquid stool. Per the nursing staff. Remains somewhat distended. We'll proceed with our plans for a CAT scan with small volume rectal contrast to evaluate the rectosigmoid anastomosis. Await morning labs. Keep nothing by mouth for now. Begin TPN. PICC line was placed yesterday. Current Visit: Yes Status: Acute Code(s): K56.2 - VOLVULUS SNOMED Code(s) : 341737893
[2018-08-05] MEDS: PANTOPRAZOLE 40 MG/10 ML VIAL IV SCH (11:07)
[2018-08-05 11:55] LABS: Glucose,Whole Blood 117 mg/dL (75-99)
[2018-08-05 12:04] LABS: Ionized Calcium 4.9 mg/dL (4.5-5.3)
[2018-08-05 12:18] LABS: ALT 72 U/L (21-72); AST 103 U/L (17-59); Albumin 2.6 g/dL (3.5-5.0); Alkaline Phosphatase 85 U/L (38-126); Anion Gap 5 mmol/L; Blood Urea Nitrogen 11 mg/dL (9-20); Carbon Dioxide 24 mmol/L (22-30); Chloride 110 mmol/L (98-107); Glucose 113 mg/dL (74-99); Phosphorus 3.1 mg/dL (2.5-4.5); Potassium 3.3 mmol/L (3.5-5.1); Sodium 139 mmol/L (137-145); Total Bilirubin 1.4 mg/dL (0.2-1.3); Total Protein 4.8 g/dL (6.3-8.2); Triglycerides 63 mg/dL (<150)
[2018-08-05] MEDS ORDERED: MVI, ADULT NO.4 WITH VIT K 10 ML, TRACE (CONC-1ML/DOSE) 1 ML, POTASSIUM CHLORIDE 20 MEQ... IV ONE ×5 (13:00)
--- NOTE | 2018-08-05 13:45 | CT ---
EXAMINATION TYPE: CT abdomen pelvis wo con DATE OF EXAM: 08/05/2018 HISTORY: Abdominal distention, evaluate of anastomosis rectosigmoid CT DLP: 846.5 mGycm. Automated Exposure Control for Dose Reduction was Utilized. TECHNIQUE: CT scan of the abdomen and pelvis is performed without oral or IV contrast. Rectal contra st is given as requested. COMPARISON: CT abdomen and pelvis from 6 days ago. FINDINGS: Within the limitations of a non-contrast study, the following observations are made. Evalu ation noted suboptimal due to artifact from overlying upper extremities. Surgical change in the proxi mal right ulna is noted on localizer. LUNG BASES: There are small to borderline moderate-sized bilateral pleural effusions with associated compressive atelectasis. Coronary artery calcification in the RCA distribution is present. LIVER/GB: No significant abnormality is appreciated. PANCREAS: No significant abnormality is seen. SPLEEN: No significant abnormality is seen. ADRENALS: No significant abnormality is seen. KIDNEYS: Sherman catheter is seen within decompressed bladder which is thus suboptimally evaluated. BOWEL: Sutures from surgical correction anastomosis sigmoid colon are seen axial image 69. Rectal con trast extends through this level without extravasation. Dilated colon along the periphery of the abdo men is seen from cecum through the rectum. There is small bowel feces sign in nondilated terminal ile um. Trace free fluid right paracolic gutter noted axial image 47 on current study GENITAL ORGANS: No gross abnormality seen. LYMPH NODES: No greater than 1cm abdominal or pelvic lymph nodes are appreciated. OSSEOUS STRUCTURES: Some multilevel facet arthropathy mid to lower lumbar spine is present. OTHER: New overlying vertical skin mony are present in the midline of the lower abdomen and pelvis . Moderate diffuse subcutaneous edema in the pelvis extending into bilateral groin region is now note d. IMPRESSION: Interval successful surgical correction of cecal volvulus. Severe diffuse colonic distent ion remains present without small bowel distention. No obvious transition point at sutures to suggest stricture related to sutures. No extravasation to suggest leak. Favor postsurgical severe colonic il eus.
[2018-08-05] MEDS: BISACODYL 10 MG SUPP RECTAL SCH (13:57)
[2018-08-05] MEDS: INSULIN ASPART 100 UNIT/ML 1 ML 10 ML VIAL SQ SCH ×2 (13:57→16:56)
[2018-08-05] MEDS: D5-0.45% NACL WITH KCL 20MEQ/L 1,000 ML IV SCH (14:17)
[2018-08-05] MEDS: CEFEPIME 2 GM in SODIUM CHLORIDE 0.9% 50 ML IVPB SCH ×2 (14:17→21:54)
[2018-08-05] MEDS ORDERED: BISACODYL 10 MG SUPP RECTAL STA (15:44)
[2018-08-05] MEDS: FAT EMULSION 20% 250 ML in EMPTY BAG 1 BAG IV SCH (16:56)
[2018-08-05 16:58] LABS: Glucose,Whole Blood 103 mg/dL (75-99)
[2018-08-05] MEDS ORDERED: Potassium Replacement Protocol 1 EACH MISC MISCELLANE PRN (17:45)
[2018-08-05] MEDS ORDERED: Magnesium Replacement Protocol 1 EACH MISC MISCELLANE PRN (17:48)
[2018-08-05] MEDS: POTASSIUM CHLORIDE 10 MEQ in WATER FOR INJECTION 1 100ML.BAG IVPB SCH ×3 (19:51→23:36)
[2018-08-05] MEDS: MIRTAZAPINE 15 MG TAB PO SCH ×2 (21:54→21:57)
--- NOTE | 2018-08-05 22:46 | PN ---
PROGRESS NOTE DATE OF SERVICE: 08/05/2018 REASON FOR FOLLOWUP: 1. Fever, possible pneumonia. 2. Ileus. INTERVAL HISTORY: The patient is currently afebrile. He has been breathing comfortably. Denies having any chest pain. Occasional cough. Still has some abdominal distention but no nausea, no vomiting. No bowel movement. PHYSICAL EXAMINATION: Blood pressure 148/69 with a pulse of 79, temperature 98.2. He is 94% on room air. General description is a middle-aged male lying in bed in no distress. RESPIRATORY SYSTEM: Unlabored breathing with decreased breath sounds at the base. No wheeze. HEART: S1, S2. Regular rate and rhythm. ABDOMEN: Soft. No tenderness. LABS: Hemoglobin is 13.9, white count of 6.5, BUN of 11, creatinine 0.71. Blood culture has been negative. He did have a CT of abdomen and pelvis which shows postoperative ileus. No evidence of any leakage. Lung bases did show borderline moderate-size pleural effusion with compressive atelectasis. DIAGNOSTIC IMPRESSION AND PLAN: Patient with low-grade fever in this patient who did have a laparotomy for sigmoid volvulus, status post sigmoid resection, end-to-end anastomosis with initial concern for possible basilar pneumonia. Per the CT scan, there is mostly pleural effusion. Patient's fever is currently resolved. There is no evidence of any leak on the CT. The patient is currently covered with cefepime and Flagyl; to continue for now while waiting for his condition to stabilize. Continue with supportive care. MMODL / IJN: [id number] /
[2018-08-05] MEDS: LORazepam 2 MG/ML INJ IV PRN (22:50)
[2018-08-05 23:44] LABS: Glucose,Whole Blood 106 mg/dL (75-99)
[2018-08-06] MEDS: INSULIN ASPART 100 UNIT/ML 1 ML 10 ML VIAL SQ SCH ×4 (00:32→17:51)
[2018-08-06] MEDS: POTASSIUM CHLORIDE 10 MEQ in WATER FOR INJECTION 1 100ML.BAG IVPB SCH (00:34)
[2018-08-06] MEDS: D5-0.45% NACL WITH KCL 20MEQ/L 1,000 ML IV SCH ×2 (04:46→16:24)
[2018-08-06 06:20] LABS: Glucose,Whole Blood 114 mg/dL (75-99)
[2018-08-06 07:49] LABS: Ionized Calcium 4.9 mg/dL (4.5-5.3)
[2018-08-06] MEDS: IPRATROPIUM-ALBUTEROL 3 ML NEB INHALATION SCH ×4 (07:50→20:29)
[2018-08-06] MEDS: metroNIDAZOLE-NS PMX 500 MG in SALINE 1 100ML.BAG IVPB SCH ×2 (08:04→16:25)
[2018-08-06] MEDS: PANTOPRAZOLE 40 MG/10 ML VIAL IV SCH (08:07)
[2018-08-06] MEDS: HEPARIN SODIUM,PORCINE 5,000 UNIT/ML 1 ML VIAL SQ SCH ×2 (08:09→16:24)
[2018-08-06] MEDS: LORazepam 2 MG/ML INJ IV PRN ×2 (08:10→17:08)
[2018-08-06] MEDS: BISACODYL 10 MG SUPP RECTAL SCH (08:11)
[2018-08-06 08:14] LABS: Albumin 2.6 g/dL (3.5-5.0); Anion Gap 5 mmol/L; Blood Urea Nitrogen 9 mg/dL (9-20); Carbon Dioxide 24 mmol/L (22-30); Chloride 111 mmol/L (98-107); Glucose 102 mg/dL (74-99); Phosphorus 2.7 mg/dL (2.5-4.5); Potassium 3.5 mmol/L (3.5-5.1); Sodium 140 mmol/L (137-145)
[2018-08-06] MEDS: CEFEPIME 2 GM in SODIUM CHLORIDE 0.9% 50 ML IVPB SCH ×2 (09:50→21:42)
[2018-08-06 11:58] LABS: Glucose,Whole Blood 98 mg/dL (75-99)
[2018-08-06] MEDS: FAT EMULSION 20% 250 ML in EMPTY BAG 1 BAG IV SCH (16:13)
[2018-08-06] MEDS: [UNRECOGNIZED DRUG - REMARK] IV SCH ×5 (16:17)
[2018-08-06 16:57] LABS: Glucose,Whole Blood 114 mg/dL (75-99)
--- NOTE | 2018-08-06 18:09 | P.PN ---
Subjective Progress Note Date: 08/06/18 Principal diagnosis: Sigmoid volvulus Patient remains confused. Apparently when his friend was here today he wasn't able to carry on a conversation in anyway in fact he was not really opening his eyes much during that visit. He appears fairly comfortable. Not receiving any narcotics for pain. Did have another moderate size loose stool today. Despite that his abdomen remains distended. No vomiting. He is afebrile with stable vitals. Electrolytes noted. No CBC today. Objective - Vital Signs Vital signs: Vital Signs Temp 97.8 F 08/06/18 15:00 Pulse 84 08/06/18 16:24 Resp 16 08/06/18 15:00 BP 136/80 08/06/18 15:00 Pulse Ox 94 L 08/06/18 15:00 Intake & Output 08/05/18 08/06/18 08/06/18 18:59 06:59 18:59 Intake Total 600 644.7 Output Total 350 700 Balance 250 -55.3 Weight 83.915 kg Intake: Intake, IV Titration 600 644.7 Amount D5-0.45% NaCl with KCl 600 20Meq/l 1,000 ml @ 75 mls /hr IV .[id number] [facility] Rx#: [id number] Fat Emulsion 20% 250 ml 124.7 In Empty Bag 1 bag @ 21 mls/hr IV Q24H [facility] Rx#: [id number] Mvi, Adult No.4 with Vit 270 K 10 ml Trace (Conc-1Ml/ Dose) 1 ml Potassium Chloride 20 meq Parenteral Electrolytes 20 ml In Amino Acid 5%- D15w 1,000 ml @ 30 mls/hr IV .Q24H [facility] Rx#: [id number] Potassium Chloride 10 meq 250 In Water For Injection 1 100ml.bag @ 100 mls/hr IVPB Q1HR [facility] Rx#: [id number] Output: Urine 350 700 Uretheral (Sherman) 350 Other: Voiding Method Indwelling Catheter Indwelling Catheter - Exam Abdomen: Distended, tympanic, mild tenderness along incision - Labs CBC & Chem 7: 08/04/18 06:36 08/06/18 06:51 Labs: Abnormal Lab Results - Last 24 Hours (Table) 08/05/18 08/06/18 08/06/18 Range/Units 23:43 06:08 06:51 Chloride 111 H (98-107) mmol/L Glucose 102 H (74-99) mg/dL POC Glucose (mg/dL) 106 H 114 H (75-99) mg/dL Calcium 8.0 L (8.4-10.2) mg/dL Albumin 2.6 L (3.5-5.0) g/dL 08/06/18 Range/Units 16:46 Chloride (98-107) mmol/L Glucose (74-99) mg/dL POC Glucose (mg/dL) 114 H (75-99) mg/dL Calcium (8.4-10.2) mg/dL Albumin (3.5-5.0) g/dL Microbiology - Last 24 Hours (Table) 08/03/18 20:04 Blood Culture - Preliminary Blood No Growth after 48 hours Assessment and Plan (1) Sigmoid volvulus Narrative/Plan: Will check repeat abdominal x-rays tomorrow. Repeat CBC and electrolyte tomorrow as well. Possible decompressive endoscopy if dilation persists. Still concerned about the possibility of the patient developing an anastomotic complication given the ongoing ileus. Yesterday's CAT scan however does not reveal any findings to suggest anastomotic leak. I discussed the patient's clinical scenario at length with the son by phone and also with his power of attorney lawyer [employer] this evening. Current Visit: Yes Status: Acute Code(s): K56.2 - VOLVULUS SNOMED Code(s) : 582493751
--- NOTE | 2018-08-06 21:25 | P.PN ---
Subjective Progress Note Date: 08/05/18 Progress note being dictated for Dr. Sandoval. 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 She was started on levofloxacin and metronidazole by general surgery. Patient had low-grade fever because of which are bit septic workup which showed mild left-sided pleural effusion. Patient is being continued on antibiotics patient cannot give me any history because of his baseline advanced dementia. Patient is being continued on IV fluids will repeat a sick metabolic profile and CBC tomorrow. 08/03/2018 Sitting up in chair, pleasantly confused presently confused T-max 100, WBC pending. Urine culture no growth. Physical therapist reports patient became short of breath, significant wheezing upon transitioning to chair. Epidural being discontinued today. Creatinine 0.83. Sodium 138. 08/04/18 lethargic this morning, received Dilaudid around midnight. Dilaudid discontinued, now receiving Toradol for pain management. Appears comfortable, minimally to no conversing- baseline, Rhonchorous, IV fluids decreased in addition to Lasix 20 IV push ordered. Evaluated by infectious disease regarding bilateral heel ulcers, recommendations noted. Afebrile, normal WBC. No nausea, vomiting or diarrhea. Staff reports small bowel movement yesterday. Abdomen appears more bloated/tympanic today, diet downgraded-NPO. 08/05/2018 PICC line placed yesterday, TPN initiated. Afebrile. Abdominal distention, without nausea vomiting. Abdomen/pelvis CT reported postoperative ileus without leakage, bilateral bases with moderate size pleural effusions with compressive atelectasis. Large loose bowel movement reported today. No nausea or vomiting. Afebrile. Blood cultures negative. Appears comfortable. Objective - Vital Signs Vital signs: Vital Signs Temp 98.1 F 08/05/18 14:48 Pulse 88 08/05/18 16:39 Resp 16 08/05/18 14:48 BP 127/97 08/05/18 14:48 Pulse Ox 95 08/05/18 14:48 Intake & Output 08/04/18 08/05/18 08/05/18 18:59 06:59 18:59 Intake Total 600 600 Output Total 3000 1800 100 Balance -3000 -1200 500 Weight 83.915 kg Intake: Intake, IV Titration 600 600 Amount D5-0.45% NaCl with KCl 600 600 20Meq/l 1,000 ml @ 75 mls /hr IV .[id number] [facility] Rx#: [id number] Output: Urine 3000 1800 100 Uretheral (Sherman) 100 Other: Voiding Method Indwelling Catheter - Exam GENERAL: The patient is lying in bed, alert and oriented x1 ,no acute distress. Minimally converses. HEENT: Pupils are round and equal. Left eye blindness. No conjunctival pallor. Normocephalic, atraumatic. Hard of hearing. CARDIOVASCULAR: S1 and S2 present. No murmurs, rubs, or gallops. PULMONARY: Unlabored ,Chest is clear to auscultation, bilateral bases diminished ABDOMEN: Soft, distended, tympanic, tinkling bowel sounds. Status post surgery , Dressing clean dry and intact. EXTREMITIES: No cyanosis, clubbing, or pedal edema. NEUROLOGICAL: Gross neurological examination did not reveal any focal deficits. SKIN: Bilateral heels with tender large blisters with extending redness,edema. - Labs CBC & Chem 7: 08/04/18 06:36 08/06/18 06:51 Labs: Abnormal Lab Results - Last 24 Hours (Table) 08/05/18 08/05/18 08/05/18 Range/Units 11:40 11:53 16:54 Potassium 3.3 L (3.5-5.1) mmol/L Chloride 110 H (98-107) mmol/L Glucose 113 H (74-99) mg/dL POC Glucose (mg/dL) 117 H 103 H (75-99) mg/dL Calcium 8.0 L (8.4-10.2) mg/dL Total Bilirubin 1.4 H (0.2-1.3) mg/dL AST 103 H (17-59) U/L Total Protein 4.8 L (6.3-8.2) g/dL Albumin 2.6 L (3.5-5.0) g/dL Microbiology - Last 24 Hours (Table) 08/03/18 20:04 Blood Culture - Preliminary Blood No Growth after 24 hours Assessment and Plan Assessment: -Colonic Obstruction secondary to sigmoid volvulus: Status post colectomy, patient is on antibiotics for possible colitis per surgery -Postoperative ileus, expected outcome. -Bilateral pleural effusions, compressive atelectasis, possible -Possible Sepsis secondary to colitis. -Advanced Alzheimer's dementia -Depression -Bilateral heel pressure ulcers, stage I, present on admission Plan: Continue on current medication regime ,monitoring and symptomatic treatment. PICC line pending for initiation of TPN .NPO,suppository ordered as per surgery. Pain management .continue on IV antibiotics/skin-heel care as per ID.Thank you for allowing us to participate in the care of this pleasant gentleman. The impression and plan of care has been dictated as directed. : I performed a history and examination of this patient, discussed the same with the dictator. I agree with the dictator's note ,documented as a scribe. Any additional findings or plans will be noted.
--- NOTE | 2018-08-06 21:33 | P.PN ---
Subjective Progress Note Date: 08/06/18 Progress note being dictated for Dr. Sandoval. 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 She was started on levofloxacin and metronidazole by general surgery. Patient had low-grade fever because of which are bit septic workup which showed mild left-sided pleural effusion. Patient is being continued on antibiotics patient cannot give me any history because of his baseline advanced dementia. Patient is being continued on IV fluids will repeat a sick metabolic profile and CBC tomorrow. 08/03/2018 Sitting up in chair, pleasantly confused presently confused T-max 100, WBC pending. Urine culture no growth. Physical therapist reports patient became short of breath, significant wheezing upon transitioning to chair. Epidural being discontinued today. Creatinine 0.83. Sodium 138. 08/04/18 lethargic this morning, received Dilaudid around midnight. Dilaudid discontinued, now receiving Toradol for pain management. Appears comfortable, minimally to no conversing- baseline, Rhonchorous, IV fluids decreased in addition to Lasix 20 IV push ordered. Evaluated by infectious disease regarding bilateral heel ulcers, recommendations noted. Afebrile, normal WBC. No nausea, vomiting or diarrhea. Staff reports small bowel movement yesterday. Abdomen appears more bloated/tympanic today, diet downgraded-NPO. 08/05/2018 PICC line placed yesterday, TPN initiated. Afebrile. Abdominal distention, without nausea vomiting. Abdomen/pelvis CT reported postoperative ileus without leakage, bilateral bases with moderate size pleural effusions with compressive atelectasis. Large loose bowel movement reported today. No nausea or vomiting. Afebrile. Blood cultures negative. Appears comfortable. 08/06/2018 positive bowel movement again this morning. Abdomen remains distended, minimally softer. No nausea or vomiting. Afebrile with blood cultures negative at 48 hours. Potassium supplemented yesterday, currently 3.5. Blood sugars controlled. Objective - Vital Signs Vital signs: Vital Signs Temp 98.3 F 08/06/18 19:45 Pulse 84 08/06/18 20:40 Resp 18 08/06/18 19:45 BP 137/75 08/06/18 19:45 Pulse Ox 96 08/06/18 19:45 Intake & Output 08/06/18 08/06/18 08/07/18 06:59 18:59 06:59 Intake Total 644.7 Output Total 700 700 Balance -55.3 -700 Intake: Intake, IV Titration 644.7 Amount Fat Emulsion 20% 250 ml 124.7 In Empty Bag 1 bag @ 21 mls/hr IV Q24H [facility] Rx#: [id number] Mvi, Adult No.4 with Vit 270 K 10 ml Trace (Conc-1Ml/ Dose) 1 ml Potassium Chloride 20 meq Parenteral Electrolytes 20 ml In Amino Acid 5%- D15w 1,000 ml @ 30 mls/hr IV .Q24H [facility] Rx#: [id number] Potassium Chloride 10 meq 250 In Water For Injection 1 100ml.bag @ 100 mls/hr IVPB Q1HR [facility] Rx#: [id number] Output: Urine 700 700 Other: Voiding Method Indwelling Catheter Indwelling Catheter Indwelling Catheter - Labs CBC & Chem 7: 08/04/18 06:36 08/06/18 06:51 Labs: Abnormal Lab Results - Last 24 Hours (Table) 08/05/18 08/06/18 08/06/18 Range/Units 23:43 06:08 06:51 Chloride 111 H (98-107) mmol/L Glucose 102 H (74-99) mg/dL POC Glucose (mg/dL) 106 H 114 H (75-99) mg/dL Calcium 8.0 L (8.4-10.2) mg/dL Albumin 2.6 L (3.5-5.0) g/dL 08/06/18 Range/Units 16:46 Chloride (98-107) mmol/L Glucose (74-99) mg/dL POC Glucose (mg/dL) 114 H (75-99) mg/dL Calcium (8.4-10.2) mg/dL Albumin (3.5-5.0) g/dL Microbiology - Last 24 Hours (Table) 08/03/18 20:04 Blood Culture - Preliminary Blood No Growth after 48 hours Assessment and Plan Assessment: -Colonic Obstruction secondary to sigmoid volvulus: Status post colectomy, patient is on antibiotics for possible colitis per surgery -Postoperative ileus, expected outcome. -Bilateral pleural effusions, compressive atelectasis, possible -Possible Sepsis secondary to colitis. -Advanced Alzheimer's dementia -Depression -Bilateral heel pressure ulcers, stage I, present on admission Plan: Continue on current medication regime ,monitoring and symptomatic treatment. TPN . Potassium replacement as per protocol .Continue on IV antibiotics.close monitoring of electrolytes with repeat labs ordered for a.m. Pulmonary consulted regarding bilateral moderate pleural effusions per CT. repeat abdominal x-rays tomorrow as per surgery .Thank you for allowing us to participate in the care of this pleasant gentleman. The impression and plan of care has been dictated as directed. : I performed a history and examination of this patient, discussed the same with the dictator. I agree with the dictator's note ,documented as a scribe. Any additional findings or plans will be noted.
[2018-08-06] MEDS: MIRTAZAPINE 15 MG TAB PO SCH ×2 (21:42→21:50)
--- NOTE | 2018-08-06 23:44 | PN ---
PROGRESS NOTE DATE OF SERVICE: 08/06/2018. REASON FOR FOLLOWUP: 1. Fever, possible pneumonia, abdominal source. 2. Bilateral heel pressure ulcer. INTERVAL HISTORY: The patient is afebrile. He is breathing comfortably. He still complains of some abdominal pain unable to any further. No nausea, vomiting per the nursing staff and no bowel movement. PHYSICAL EXAMINATION: Blood pressure is 137/65 with a pulse of 89, temperature 98.3. He is 96% on room air. General description is an elderly male lying in bed in no distress. Respiratory system: Unlabored breathing. Clear to auscultation anteriorly. Heart S1, S2 regular rate and rhythm. ABDOMEN: Soft. Mildly distended, minimally tender. No guarding. No rigidity. Bilateral heel wounds currently covered with heel protectors. LABS: BUN of 9, creatinine is 0.67. Blood culture has been negative. DIAGNOSTIC IMPRESSION AND PLAN: 1. Patient with low-grade fever in this patient who did have a sigmoid volvulus status post sigmoid resection and end-to-end anastomosis. The patient's fever has resolved. The patient did have evidence of postop ileus with no evidence of any leakage and less likely pneumonia. Patient is currently covered with cefepime and Flagyl to continue for now while watching clinical course closely. 2. Patient with wound bilateral heel pressure ulcer. Continue with wound heel protectors. Continue supportive care. MMODL / IJN: [id number] /
[2018-08-07] MEDS: INSULIN ASPART 100 UNIT/ML 1 ML 10 ML VIAL SQ SCH ×4 (00:32→20:06)
[2018-08-07] MEDS: metroNIDAZOLE-NS PMX 500 MG in SALINE 1 100ML.BAG IVPB SCH ×3 (00:39→15:53)
[2018-08-07] MEDS: HEPARIN SODIUM,PORCINE 5,000 UNIT/ML 1 ML VIAL SQ SCH ×3 (00:39→15:53)
[2018-08-07 00:41] LABS: Glucose,Whole Blood 101 mg/dL (75-99)
[2018-08-07] MEDS: [UNRECOGNIZED DRUG - REMARK] IV SCH ×10 (02:05→12:32)
[2018-08-07] MEDS: D5-0.45% NACL WITH KCL 20MEQ/L 1,000 ML IV SCH ×2 (04:19→20:07)
[2018-08-07 05:54] LABS: Glucose,Whole Blood 113 mg/dL (75-99)
[2018-08-07] MEDS: IPRATROPIUM-ALBUTEROL 3 ML NEB INHALATION SCH ×4 (06:00→19:45)
[2018-08-07 07:29] LABS: Glucose,Whole Blood 217 mg/dL (75-99)
[2018-08-07 07:33] LABS: Basophils % (A) 0 %; Eosinophils # (A) 0.2 k/uL (0-0.7); Eosinophils % (A) 4 %; HGB 12.9 gm/dL (13.0-17.5); Lymphocytes # (A) 0.7 k/uL (1.0-4.8); Lymphocytes % (A) 13 %; MCH 30.2 pg (25.0-35.0); MCHC 32.2 g/dL (31.0-37.0); MCV 93.9 fL (80.0-100.0); Mean Platelet Volume 7.2; Monocytes # (A) 0.3 k/uL (0-1.0); Monocytes % (A) 5 %; Neutrophils # (A) 4.5 k/uL (1.3-7.7); Neutrophils % (A) 76 %; Platelet Count 253 k/uL (150-450); RBC 4.26 m/uL (4.30-5.90); RDW 12.6 % (11.5-15.5); WBC 5.9 k/uL (3.8-10.6)
[2018-08-07 07:36] LABS: Ionized Calcium 4.8 mg/dL (4.5-5.3)
[2018-08-07 07:48] LABS: Anion Gap 4 mmol/L; Blood Urea Nitrogen 11 mg/dL (9-20); Calcium 7.8 mg/dL (8.4-10.2); Carbon Dioxide 24 mmol/L (22-30); Chloride 112 mmol/L (98-107); Glucose 122 mg/dL (74-99); Magnesium 2.1 mg/dL (1.6-2.3); Potassium 3.5 mmol/L (3.5-5.1); Sodium 140 mmol/L (137-145)
[2018-08-07] MEDS: CEFEPIME 2 GM in SODIUM CHLORIDE 0.9% 50 ML IVPB SCH ×2 (09:05→20:19)
[2018-08-07] MEDS: PANTOPRAZOLE 40 MG/10 ML VIAL IV SCH (09:06)
[2018-08-07] MEDS: BISACODYL 10 MG SUPP RECTAL SCH (09:06)
[2018-08-07 09:40] LABS: INR 1.1 (<1.2)
--- NOTE | 2018-08-07 10:30 | CDI ---
Documentation Clarification Form Date: 08/07/2018 10:18:59 AM From: Evelyn ChambersHernandesLUIS bravo, CCDS Admit Date: 07/30/2018 4:26:00 PM Patient Name: Khalif Ocasio Visit Number: [id number] Discharge Date: ATTENTION: The Clinical Documentation Specialists (CDI) and [facility] Coding Staff appreciate your assistance in clarifying documentation. Please respond to the clarification below the line at the bottom and electronically sign. The CDI & [facility] Coding staff will review the response and follow-up if needed. Please note: Queries are made part of the Legal Health Record. If you have any questions, please contact the author of this message via ITS. Dr. Kb Remy: Per the progress notes, the patient is on antibiotics for possible colitis. Per the medical management progress note on 08/05, the patient presented with sepsis due to colitis. Patient history/risk factors: Advanced Alzheimer's type Dementia, lives alone, former smoker. Clinical Indicators: Presented with nausea & vomiting, dehydration, abdominal bloating & distended abdomen. Found to have sigmoid volvulus and is status post a sigmoid colectomy. Radiology: CT A/P: Dilated sigmoid colon w/focal torquing compatible with sigmoid volvulus. 07/31 Pathology Report: Sigmoid volvulus status post sigmoid resection: Benign colonic mucosa with focal early acute ischemic type colitis and mild atrophic changes consistent with clinical volvulus. Treatment: Decompressive colonoscopy with insertion of rectal tube with subsequent sigmoid colectomy. IV Dilaudid, IV Zofran, IV fluid bolus, IV Tylenol , IV Kcl, IV Cefazolin, IV Flagyl, IV Levaquin, IV Cefepime. PICC line placed for TPN. In your professional opinion, can you please further specify the following, if known? Acute Ischemic Colitis Ulcerative Colitis (Chronic) Other (Enteritis) Other, please specify: Unable to determine (Last Revision: April 2017) Patient admitted with sigmoid volvulus. Ischemic type colitis secondary to the volvulus. This would be acute. MTDD
[2018-08-07 11:45] LABS: Glucose,Whole Blood 110 mg/dL (75-99)
--- NOTE | 2018-08-07 12:23 | US ---
EXAMINATION TYPE: US chest DATE OF EXAM: 08/07/2018 COMPARISON: NONE CLINICAL HISTORY: cristy. pleural effusions. Bilateral pleural effusion TECHNIQUE: Targeted ultrasound of the posterior lower bilateral hemithoraces EXAM MEASUREMENTS: Right Pleural Effusion pocket size: 2.1 cm Right skin surface to fluid distance: 2.7 cm Left Pleural Effusion pocket size: 1.3 cm Left skin surface to fluid distance: 2.4 cm Right side NOT MARKED for possible thoracentesis outside the dept. Left side NOT MARKED for possible thoracentesis outside the dept. Pulmonologists are able to review the images in the patient?s EMR. IMPRESSIONS: 1. Small bilateral pleural effusions.
--- NOTE | 2018-08-07 12:33 | XR ---
EXAMINATION TYPE: XR abdomen 2V DATE OF EXAM: 08/07/2018 COMPARISON: 07/31/2018 INDICATION: Abdominal distention TECHNIQUE: Single view abdomen frontal projection upright view. This is supplemented with a supine vi ew. FINDINGS: Abundant bowel gas is within the colon. There are multiple loops of dilated small bowel containing ai r. Post surgical skin mony are within the lower pelvis. Free air is not identified. Suspicious dif ferential air-fluid levels are not present. Correlate for postoperative ileus. Previous dilated colo n is decompressed over the interval. Psoas margins are poorly visualized due to the bowel gas. No organomegaly is present. IMPRESSION: 1. Multiple prominent air-filled loops of small bowel and colon. Correlate for postsurgical ileus.
--- NOTE | 2018-08-07 15:27 | P.PN ---
Subjective Progress Note Date: 08/07/18 Principal diagnosis: Sigmoid volvulus Patient doing better today. He had a large amount of liquid stool this morning. X-rays are still showing dilated bowel loops primarily colon. Degree of distention better than expected from recent CAT scan and from yesterday's exam. He is also more alert. He is able to carry on a conversation although confused. Today's white blood cell count normal. He is afebrile. No tachycardia. Objective - Vital Signs Vital signs: Vital Signs Temp 98.2 F 08/07/18 09:00 Pulse 94 08/07/18 09:05 Resp 18 08/07/18 09:05 BP 131/80 08/07/18 09:00 Pulse Ox 94 L 08/07/18 09:00 Intake & Output 08/06/18 08/07/18 08/07/18 18:59 06:59 18:59 Intake Total 1363 815 Output Total 700 900 Balance -700 463 815 Weight 83.915 kg Intake: Intake, IV Titration 1363 815 Amount Amino Acid 5%-D15w+Lytes* 665 E* 1,000 ml @ 95 mls/hr IV .BY DURATION [facility] Rx#: [id number] Cefepime 2 gm In Sodium 50 Chloride 0.9% 50 ml @ 100 mls/hr IVPB Q12HR [facility] Rx #:[id number] Fat Emulsion 20% 250 ml 63 In Empty Bag 1 bag @ 21 mls/hr IV Q24H [facility] Rx#: [id number] Mvi, Adult No.4 with Vit 1300 K 10 ml Trace (Conc-1Ml/ Dose) 1 ml Magnesium Sulfate gm 0.5 gm Potassium Phosphate 9 mmol In Amino Acid 5%- D15w+Lytes*E* 1,000 ml @ 95 mls/hr IV .BY DURATION [facility] Rx#:[id number] metroNIDAZOLE-NS PMX 500 100 mg In Saline 1 100ml.bag @ 100 mls/hr IVPB Q8HR [facility] Rx#:[id number] Output: Urine 700 900 Other: Voiding Method Indwelling Catheter Indwelling Catheter Indwelling Catheter - Exam Abdomen: Soft, distended, less tympanic, minimal tenderness - Labs CBC & Chem 7: 08/07/18 06:39 08/07/18 06:39 Labs: Abnormal Lab Results - Last 24 Hours (Table) 08/06/18 08/07/18 08/07/18 Range/Units 16:46 00:28 05:42 RBC (4.30-5.90) m/uL Hgb (13.0-17.5) gm/dL Lymphocytes # (1.0-4.8) k/uL Chloride (98-107) mmol/L Creatinine (0.66-1.25) mg/dL Glucose (74-99) mg/dL POC Glucose (mg/dL) 114 H 101 H 113 H (75-99) mg/dL Calcium (8.4-10.2) mg/dL 08/07/18 08/07/18 08/07/18 Range/Units 06:39 06:39 07:18 RBC 4.26 L (4.30-5.90) m/uL Hgb 12.9 L (13.0-17.5) gm/dL Lymphocytes # 0.7 L (1.0-4.8) k/uL Chloride 112 H (98-107) mmol/L Creatinine 0.60 L (0.66-1.25) mg/dL Glucose 122 H (74-99) mg/dL POC Glucose (mg/dL) 217 H (75-99) mg/dL Calcium 7.8 L (8.4-10.2) mg/dL 08/07/18 Range/Units 11:34 RBC (4.30-5.90) m/uL Hgb (13.0-17.5) gm/dL Lymphocytes # (1.0-4.8) k/uL Chloride (98-107) mmol/L Creatinine (0.66-1.25) mg/dL Glucose (74-99) mg/dL POC Glucose (mg/dL) 110 H (75-99) mg/dL Calcium (8.4-10.2) mg/dL Microbiology - Last 24 Hours (Table) 08/03/18 20:04 Blood Culture - Preliminary Blood No Growth after 72 hours Assessment and Plan (1) Sigmoid volvulus Narrative/Plan: Patient's colonic ileus seems to be improving spontaneously. Despite that I did proceed with a digital rectal examination. The anus was somewhat stretched during the procedure and with that we were able to elicit a large volume of flatus and approximately 150 mL of liquid brown stool. The volume of flatus was fairly significant. Unless the patient's exam shows significant improvement tomorrow will likely proceed with a digital rectal exam with stimulation again tomorrow. We'll try to have the patient's activity increased further. Keep nothing by mouth today but the patient is doing the same or better tomorrow we'll likely start liquid diet. Continue TPN. Current Visit: Yes Status: Acute Code(s): K56.2 - VOLVULUS SNOMED Code(s) : 684966717
[2018-08-07] MEDS: FAT EMULSION 20% 250 ML in EMPTY BAG 1 BAG IV SCH (15:53)
--- NOTE | 2018-08-07 16:36 | PN ---
PROGRESS NOTE DATE OF SERVICE: 08/07/2018 REASON FOR FOLLOWUP: Fever, postoperative ileus, bilateral heel pressure ulcers. INTERVAL HISTORY: The patient is currently afebrile, has been breathing comfortably. Some abdominal pain, but no worsening. No nausea or vomiting has been noticed or any diarrhea by the nursing staff. PHYSICAL EXAMINATION: Blood pressure 153/80 with a pulse of 87, temperature 98.4. He is 95% on room air. General description is an elderly male lying in bed in no distress. RESPIRATORY SYSTEM: Unlabored breathing. Clear to auscultation anteriorly. HEART: S1, S2. Regular rate and rhythm. ABDOMEN: Soft. Mildly distended. No guarding or rigidity. Bilateral heels did show overall improvement with a blister. No open wound or any drainage. LABS: Hemoglobin is 12.9, white count 5.9 with a BUN of 11, creatinine 0.60. DIAGNOSTIC IMPRESSION AND PLAN: 1. Patient with a fever in this patient who is postoperative laparotomy with resection, sigmoid colectomy and primary anastomosis for sigmoid volvulus with development of postoperative ileus. No evidence of any perforation. Patient's fever has resolved, currently on cefepime and Flagyl, to continue for now. 2. Patient with bilateral heel stage I pressure ulcers. Keep the heel protectors. Keep the areas off pressure. No need for any local cream or any dressing. This was explained to the nursing staff. MMODL / IJN: [id number] /
--- NOTE | 2018-08-07 17:22 | P.PN ---
Subjective Progress Note Date: 08/07/18 Progress note being dictated for Dr. Sandoval. 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 She was started on levofloxacin and metronidazole by general surgery. Patient had low-grade fever because of which are bit septic workup which showed mild left-sided pleural effusion. Patient is being continued on antibiotics patient cannot give me any history because of his baseline advanced dementia. Patient is being continued on IV fluids will repeat a sick metabolic profile and CBC tomorrow. 08/03/2018 Sitting up in chair, pleasantly confused presently confused T-max 100, WBC pending. Urine culture no growth. Physical therapist reports patient became short of breath, significant wheezing upon transitioning to chair. Epidural being discontinued today. Creatinine 0.83. Sodium 138. 08/04/18 lethargic this morning, received Dilaudid around midnight. Dilaudid discontinued, now receiving Toradol for pain management. Appears comfortable, minimally to no conversing- baseline, Rhonchorous, IV fluids decreased in addition to Lasix 20 IV push ordered. Evaluated by infectious disease regarding bilateral heel ulcers, recommendations noted. Afebrile, normal WBC. No nausea, vomiting or diarrhea. Staff reports small bowel movement yesterday. Abdomen appears more bloated/tympanic today, diet downgraded-NPO. 08/05/2018 PICC line placed yesterday, TPN initiated. Afebrile. Abdominal distention, without nausea vomiting. Abdomen/pelvis CT reported postoperative ileus without leakage, bilateral bases with moderate size pleural effusions with compressive atelectasis. Large loose bowel movement reported today. No nausea or vomiting. Afebrile. Blood cultures negative. Appears comfortable. 08/06/2018 positive bowel movement again this morning. Abdomen remains distended, minimally softer. No nausea or vomiting. Afebrile with blood cultures negative at 48 hours. Potassium supplemented yesterday, currently 3.5. Blood sugars controlled. 08/07/2018 large loose bowel movement-diarrhea this morning, tested negative for C. difficile colitis. Abdomen distended but softer. Afebrile, normal WBC. Abdominal x-ray reported multiple prominent air-filled loops of small bowel and colon. Abdomen /pelvis CT suggestive of moderate bilateral pleural effusions. Chest ultrasound reported small bilateral pleural effusions, not marked. Continues on TPN. Objective - Vital Signs Vital signs: Vital Signs Temp 98.4 F 08/07/18 13:00 Pulse 87 08/07/18 13:00 Resp 18 08/07/18 13:00 BP 153/80 08/07/18 13:00 Pulse Ox 95 08/07/18 13:00 Intake & Output 08/06/18 08/07/18 08/07/18 18:59 06:59 18:59 Intake Total 1363 815 Output Total 700 900 Balance -700 463 815 Weight 83.915 kg Intake: Intake, IV Titration 1363 815 Amount Amino Acid 5%-D15w+Lytes* 665 E* 1,000 ml @ 95 mls/hr IV .BY DURATION [facility] Rx#: [id number] Cefepime 2 gm In Sodium 50 Chloride 0.9% 50 ml @ 100 mls/hr IVPB Q12HR [facility] Rx #:[id number] Fat Emulsion 20% 250 ml 63 In Empty Bag 1 bag @ 21 mls/hr IV Q24H [facility] Rx#: [id number] Mvi, Adult No.4 with Vit 1300 K 10 ml Trace (Conc-1Ml/ Dose) 1 ml Magnesium Sulfate gm 0.5 gm Potassium Phosphate 9 mmol In Amino Acid 5%- D15w+Lytes*E* 1,000 ml @ 95 mls/hr IV .BY DURATION [facility] Rx#:[id number] metroNIDAZOLE-NS PMX 500 100 mg In Saline 1 100ml.bag @ 100 mls/hr IVPB Q8HR [facility] Rx#:[id number] Output: Urine 700 900 Other: Voiding Method Indwelling Catheter Indwelling Catheter Indwelling Catheter - Exam GENERAL: The patient is lying in bed, alert and oriented x1 ,no acute distress. Minimally converses. HEENT: Pupils are round and equal. Left eye blindness. Normocephalic, atraumatic. Hard of hearing. CARDIOVASCULAR: S1 and S2 present. No murmurs, rubs, or gallops. PULMONARY: Unlabored ,Chest is clear to auscultation, bilateral bases diminished ABDOMEN: Softer, distended, less tympanic, status post surgery. Hypo-active bowel sounds. EXTREMITIES: No cyanosis, clubbing, or pedal edema. NEUROLOGICAL: Gross neurological examination did not reveal any focal deficits. SKIN: Bilateral heels with tender large blisters with extending redness,edema. - Labs CBC & Chem 7: 08/07/18 06:39 08/07/18 06:39 Labs: Abnormal Lab Results - Last 24 Hours (Table) 08/07/18 08/07/18 08/07/18 Range/Units 00:28 05:42 06:39 RBC (4.30-5.90) m/uL Hgb (13.0-17.5) gm/dL Lymphocytes # (1.0-4.8) k/uL Chloride 112 H (98-107) mmol/L Creatinine 0.60 L (0.66-1.25) mg/dL Glucose 122 H (74-99) mg/dL POC Glucose (mg/dL) 101 H 113 H (75-99) mg/dL Calcium 7.8 L (8.4-10.2) mg/dL 08/07/18 08/07/18 08/07/18 Range/Units 06:39 07:18 11:34 RBC 4.26 L (4.30-5.90) m/uL Hgb 12.9 L (13.0-17.5) gm/dL Lymphocytes # 0.7 L (1.0-4.8) k/uL Chloride (98-107) mmol/L Creatinine (0.66-1.25) mg/dL Glucose (74-99) mg/dL POC Glucose (mg/dL) 217 H 110 H (75-99) mg/dL Calcium (8.4-10.2) mg/dL Microbiology - Last 24 Hours (Table) 08/03/18 20:04 Blood Culture - Preliminary Blood No Growth after 72 hours Assessment and Plan Assessment: -Colonic Obstruction secondary to sigmoid volvulus: Status post colectomy -Postoperative ileus, expected outcome. -Bilateral small pleural effusions, compressive atelectasis -Possible Sepsis secondary to colitis. -Advanced Alzheimer's dementia -Depression -Bilateral heel pressure ulcers, stage I, present on admission Plan: Continue on current medication regime ,monitoring and symptomatic treatment. TPN, diet advancement as per surgery . Pulmonary consult canceled as chest CT reported small bilateral pleural effusions too small to be marked for thoracentesis. IV antibiotics.PT/OT. Thank you for allowing us to participate in the care of this pleasant gentleman. The impression and plan of care has been dictated as directed. : I performed a history and examination of this patient, discussed the same with the dictator. I agree with the dictator's note ,documented as a scribe. Any additional findings or plans will be noted.
[2018-08-07 17:48] LABS: Glucose,Whole Blood 94 mg/dL (75-99)
[2018-08-07] MEDS: MIRTAZAPINE 15 MG TAB PO SCH (20:19)
[2018-08-08 00:20] LABS: Glucose,Whole Blood 100 mg/dL (75-99)
[2018-08-08] MEDS: INSULIN ASPART 100 UNIT/ML 1 ML 10 ML VIAL SQ SCH ×5 (00:55→23:48)
[2018-08-08] MEDS: HEPARIN SODIUM,PORCINE 5,000 UNIT/ML 1 ML VIAL SQ SCH ×4 (00:55→23:49)
[2018-08-08] MEDS: metroNIDAZOLE-NS PMX 500 MG in SALINE 1 100ML.BAG IVPB SCH (00:57)
[2018-08-08] MEDS: [UNRECOGNIZED DRUG - REMARK] IV SCH ×15 (02:16→20:49)
[2018-08-08] MEDS: PANTOPRAZOLE 40 MG/10 ML VIAL IV SCH (07:27)
[2018-08-08] MEDS: BISACODYL 10 MG SUPP RECTAL SCH (07:28)
[2018-08-08] MEDS: CEFEPIME 2 GM in SODIUM CHLORIDE 0.9% 50 ML IVPB SCH ×2 (07:30→20:54)
[2018-08-08 08:07] LABS: Ionized Calcium 4.6 mg/dL (4.5-5.3)
[2018-08-08 08:08] LABS: Basophils % (A) 1 %; Eosinophils # (A) 0.2 k/uL (0-0.7); Eosinophils % (A) 3 %; HCT 40.8 % (39.0-53.0); Lymphocytes # (A) 0.5 k/uL (1.0-4.8); Lymphocytes % (A) 9 %; MCH 30.3 pg (25.0-35.0); MCHC 31.9 g/dL (31.0-37.0); Mean Platelet Volume 6.9; Monocytes # (A) 0.3 k/uL (0-1.0); Monocytes % (A) 5 %; Neutrophils # (A) 4.4 k/uL (1.3-7.7); Neutrophils % (A) 80 %; Platelet Count 226 k/uL (150-450); RDW 12.7 % (11.5-15.5); WBC 5.5 k/uL (3.8-10.6)
[2018-08-08] MEDS: IPRATROPIUM-ALBUTEROL 3 ML NEB INHALATION SCH ×5 (08:45→19:40)
[2018-08-08 08:49] LABS: Anion Gap 4 mmol/L; Blood Urea Nitrogen 12 mg/dL (9-20); Calcium 7.8 mg/dL (8.4-10.2); Carbon Dioxide 24 mmol/L (22-30); Chloride 110 mmol/L (98-107); Glucose 112 mg/dL (74-99); Magnesium 2.3 mg/dL (1.6-2.3); Phosphorus 2.9 mg/dL (2.5-4.5); Potassium 3.8 mmol/L (3.5-5.1); Sodium 138 mmol/L (137-145)
[2018-08-08] MEDS: D5-0.45% NACL WITH KCL 20MEQ/L 1,000 ML IV SCH ×2 (09:43→21:03)
--- NOTE | 2018-08-08 10:13 | P.PN ---
Subjective Progress Note Date: 08/08/18 Principal diagnosis: Sigmoid volvulus Patient again fairly alert today. Denies pain when asked. Appears comfortable. Apparently did not have a bowel movement during the evening. Objective - Vital Signs Vital signs: Vital Signs Temp 98.2 F 08/08/18 07:40 Pulse 82 08/08/18 07:40 Resp 18 08/08/18 07:40 BP 147/85 08/08/18 07:40 Pulse Ox 95 08/08/18 07:40 Intake & Output 08/07/18 08/08/18 08/08/18 18:59 06:59 18:59 Intake Total 815 Output Total 350 1225 Balance 465 -1225 Weight 83.915 kg Intake: Intake, IV Titration 815 Amount Amino Acid 5%-D15w+Lytes* 665 E* 1,000 ml @ 95 mls/hr IV .BY DURATION [facility] Rx#: [id number] Cefepime 2 gm In Sodium 50 Chloride 0.9% 50 ml @ 100 mls/hr IVPB Q12HR [facility] Rx #:[id number] metroNIDAZOLE-NS PMX 500 100 mg In Saline 1 100ml.bag @ 100 mls/hr IVPB Q8HR [facility] Rx#:[id number] Output: Urine 350 1225 Other: Voiding Method Indwelling Catheter Indwelling Catheter Indwelling Catheter - Exam Abdomen: Soft distended, some tympany, slightly improved since yesterday - Labs CBC & Chem 7: 08/08/18 06:59 08/08/18 06:59 Labs: Abnormal Lab Results - Last 24 Hours (Table) 08/07/18 08/08/18 08/08/18 Range/Units 11:34 00:00 06:59 Lymphocytes # (1.0-4.8) k/uL Chloride 110 H (98-107) mmol/L Creatinine 0.61 L (0.66-1.25) mg/dL Glucose 112 H (74-99) mg/dL POC Glucose (mg/dL) 110 H 100 H (75-99) mg/dL Calcium 7.8 L (8.4-10.2) mg/dL 08/08/18 Range/Units 06:59 Lymphocytes # 0.5 L (1.0-4.8) k/uL Chloride (98-107) mmol/L Creatinine (0.66-1.25) mg/dL Glucose (74-99) mg/dL POC Glucose (mg/dL) (75-99) mg/dL Calcium (8.4-10.2) mg/dL Microbiology - Last 24 Hours (Table) 08/03/18 20:04 Blood Culture - Preliminary Blood No Growth after 96 hours Assessment and Plan (1) Sigmoid volvulus Narrative/Plan: Bedside rectal examination again performed this morning. Even larger volume of air and liquid stool evacuated. Patient's abdominal examination significantly improved following the evacuation of the large volume of flatus and liquid stool. Will tentatively plan rectal tube placement tomorrow if the patient does not spontaneously start to decompress further. Begin diet at this time. Current Visit: Yes Status: Acute Code(s): K56.2 - VOLVULUS SNOMED Code(s) : 273430362
[2018-08-08 12:11] LABS: Glucose,Whole Blood 107 mg/dL (75-99)
[2018-08-08] MEDS: FAT EMULSION 20% 250 ML in EMPTY BAG 1 BAG IV SCH (15:10)
[2018-08-08 17:38] LABS: Glucose,Whole Blood 104 mg/dL (75-99)
[2018-08-08 20:35] LABS: Glucose,Whole Blood 100 mg/dL (75-99)
[2018-08-08] MEDS: MIRTAZAPINE 15 MG TAB PO SCH (20:51)
--- NOTE | 2018-08-08 20:58 | PN ---
PROGRESS NOTE DATE OF SERVICE: 08/08/2018. HISTORY: This 77-year-old gentleman who had surgery for sigmoid volvulus, had a hemicolectomy. The patient has features of ileus. No chest pain. No palpitations. Patient is stuporous. Dr. Remy is following the patient closely. EXAM: Alert and oriented x1. Mildly arousable. VITAL SIGNS: Pulse is 84, blood pressure 124/70, respirations 16, temperature 97.4, pulse ox 94% on room air. HEENT: Pupils equal. Conjunctivae normal. NECK: Supple. No JVD. CARDIOVASCULAR: S1 and S2 muffled. LUNGS: Breath sounds diminished. Scattered rhonchi. ABDOMEN: Soft, status post surgery. EXTREMITIES: Legs no edema. No swelling. NERVOUS SYSTEM: No focal deficits. LABS: CBC within normal. Sodium 130, potassium 3.8. ASSESSMENT: 1. 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 2. Postoperative ileus. 3. Bilateral small pleural effusions and compressive atelectasis, possible sepsis secondary to above. 4. Advanced Alzheimer's dementia. 5. Depression. 6. Bilateral heel pressure, stage I, present on admission. RECOMMENDATIONS AND DISCUSSION: Continue monitoring and symptomatic treatment. Otherwise at this time I would recommend to continue the current treatment and monitor closely with Surgery. Further recommendations to follow. prognosis guarded. Further recommendations to follow. MMODL / IJN: [id number] /
[2018-08-08] MEDS: LORazepam 2 MG/ML INJ IV PRN (23:49)
[2018-08-08 23:59] LABS: Glucose,Whole Blood 99 mg/dL (75-99)
--- NOTE | 2018-08-09 00:31 | PN ---
PROGRESS NOTE DATE OF SERVICE: 08/08/2018. REASON FOR FOLLOWUP: 1. Postop ileus fever. 2. Bilateral heel pressure ulcer. INTERVAL HISTORY: The patient is currently afebrile, has been breathing comfortably. He did complain of some abdominal pain. to elaborate any further. No nausea or vomiting reported by the nursing staff. Did have some loose stool. PHYSICAL EXAMINATION: Blood pressure is 115/65 with a pulse of 81, temperature 98.4. He is 96% on room air. General description is a elderly male lying in bed in no distress. Respiratory system: Unlabored breathing, clear to auscultation anteriorly. Heart S1, S2. Regular rate and rhythm. Mild distention. No guarding or rigidity. Extremities: is currently protected. No open wounds. LABS: BUN of 12, creatinine 0.6, hemoglobin 13.1, white count 5.5. Blood cultures have been negative. DIAGNOSTIC IMPRESSION AND PLAN: 1. Patient admitted to the hospital with sigmoid wall Rocephin medical therapy status post laparotomy, sigmoid colectomy and reanastomosis with postop fever likely related to ileus with no evidence of any perforation. The patient currently admitted. Dose of vanco and Flagyl to continue. 2. Patient with history of pressure ulcer. Continue with heel protectors. No need for any local cream or lotions. Continue supportive care. MMODL / IJN: [id number] /
[2018-08-09] MEDS: INSULIN ASPART 100 UNIT/ML 1 ML 10 ML VIAL SQ SCH ×3 (06:12→17:01)
[2018-08-09] MEDS: [UNRECOGNIZED DRUG - REMARK] IV SCH ×10 (06:15→17:00)
[2018-08-09 06:17] LABS: Glucose,Whole Blood 102 mg/dL (75-99)
[2018-08-09] MEDS: IPRATROPIUM-ALBUTEROL 3 ML NEB INHALATION SCH ×4 (07:03→18:42)
[2018-08-09] MEDS: PANTOPRAZOLE 40 MG/10 ML VIAL IV SCH (08:00)
[2018-08-09] MEDS: BISACODYL 10 MG SUPP RECTAL SCH (08:00)
[2018-08-09] MEDS: CEFEPIME 2 GM in SODIUM CHLORIDE 0.9% 50 ML IVPB SCH ×2 (08:00→20:33)
[2018-08-09] MEDS: HEPARIN SODIUM,PORCINE 5,000 UNIT/ML 1 ML VIAL SQ SCH ×3 (08:00→23:49)
[2018-08-09 08:38] LABS: Anion Gap 2 mmol/L; Blood Urea Nitrogen 16 mg/dL (9-20); Calcium 7.8 mg/dL (8.4-10.2); Carbon Dioxide 27 mmol/L (22-30); Chloride 111 mmol/L (98-107); Glucose 115 mg/dL (74-99); Ionized Calcium 4.7 mg/dL (4.5-5.3); Magnesium 2.4 mg/dL (1.6-2.3); Phosphorus 3.7 mg/dL (2.5-4.5); Potassium 4.1 mmol/L (3.5-5.1); Sodium 140 mmol/L (137-145)
--- NOTE | 2018-08-09 11:51 | P.PN ---
Subjective Progress Note Date: 08/09/18 Principal diagnosis: Sigmoid volvulus Patient apparently was confused and agitated last night. He was given a dose of Ativan. Today he is more relaxed. Slightly less alert than yesterday. Not eating. Objective - Vital Signs Vital signs: Vital Signs Temp 98.1 F 08/09/18 08:25 Pulse 74 08/09/18 11:01 Resp 16 08/09/18 08:25 BP 114/72 08/09/18 08:25 Pulse Ox 94 L 08/09/18 08:25 Intake & Output 08/08/18 08/09/18 08/09/18 18:59 06:59 18:59 Intake Total 760 1357 Output Total 800 1800 Balance -40 -443 Weight 83.915 kg Intake: Intake, IV Titration 760 1157 Amount Amino Acid 5%-D15w+Lytes* 760 E* 1,000 ml @ 95 mls/hr IV .BY DURATION [facility] Rx#: [id number] Fat Emulsion 20% 250 ml 142 In Empty Bag 1 bag @ 21 mls/hr IV Q24H [facility] Rx#: [id number] Mvi, Adult No.4 with Vit 1015 K 10 ml Trace (Conc-1Ml/ Dose) 1 ml Magnesium Sulfate gm 0.5 gm Potassium Phosphate 9 mmol In Amino Acid 5%- D15w+Lytes*E* 1,000 ml @ 95 mls/hr IV .BY DURATION [facility] Rx#:[id number] Oral 200 Output: Urine 800 1800 Other: Voiding Method Indwelling Catheter Indwelling Catheter - Exam Abdomen: Soft, mild distention, distention definitely improved since yesterday' s exam, no appreciable tenderness, incision clean and dry - Labs CBC & Chem 7: 08/08/18 06:59 08/09/18 07:41 Labs: Abnormal Lab Results - Last 24 Hours (Table) 08/08/18 08/08/18 08/08/18 Range/Units 11:59 17:24 20:24 Chloride (98-107) mmol/L Glucose (74-99) mg/dL POC Glucose (mg/dL) 107 H 104 H 100 H (75-99) mg/dL Calcium (8.4-10.2) mg/dL Magnesium (1.6-2.3) mg/dL 08/09/18 08/09/18 Range/Units 06:06 07:41 Chloride 111 H (98-107) mmol/L Glucose 115 H (74-99) mg/dL POC Glucose (mg/dL) 102 H (75-99) mg/dL Calcium 7.8 L (8.4-10.2) mg/dL Magnesium 2.4 H (1.6-2.3) mg/dL Microbiology - Last 24 Hours (Table) 08/03/18 20:04 Blood Culture - Preliminary Blood No Growth after 120 hours Assessment and Plan (1) Sigmoid volvulus Narrative/Plan: Patient's nurse states he did have some spontaneous flatus that she heard earlier today prior to my arrival. His exam is improved. He remains somewhat distended however. He has not moved his bowels since yesterday's rectal examination. It was decided to proceed with repeat rectal examination. In doing so a large amount of air was once again evacuated as well as liquid stool. I chose to place a fecal management system as the bowel movements are still loose. During the initial. After the fecal management system placement he did have some air evacuate through the tubing. His exam was even better after today's intervention. Hopefully can gradually improve the patient's oral intake. Continue TPN for now. Bowel function seems to be improving spontaneously. Current Visit: Yes Status: Acute Code(s): K56.2 - VOLVULUS SNOMED Code(s) : 144719334
[2018-08-09 11:58] LABS: Glucose,Whole Blood 104 mg/dL (75-99)
[2018-08-09] MEDS: D5-0.45% NACL WITH KCL 20MEQ/L 1,000 ML IV SCH (11:59)
[2018-08-09] MEDS: FAT EMULSION 20% 250 ML in EMPTY BAG 1 BAG IV SCH (15:00)
[2018-08-09 17:19] LABS: Glucose,Whole Blood 95 mg/dL (75-99)
--- NOTE | 2018-08-09 19:59 | PN ---
PROGRESS NOTE DATE OF SERVICE: 08/09/2018 This 77-year-old gentleman admitted with COPD acute exacerbation had small-bowel colectomy, had abdominal distention. Patient had flatus tube today by Dr. Remy. Patient is asleep, drowsy at this time. No chest pain. No palpitation. EXAM: Pulse is 78, blood pressure 110/74, respiration 16, temperature 98 degrees, pulse ox 90% on room air. HEENT: Conjunctivae normal. NECK: No jugular venous distention. CARDIOVASCULAR: S1, S2. RESPIRATORY: Breath sounds diminished in the bases. A few scattered rhonchi. ABDOMEN: Soft, nontender, status post surgery. LEGS: No edema. NERVOUS SYSTEM: No focal deficits. LAB STUDIES: Sodium is 140, potassium 4.1. ASSESSMENT: 1. Colonic obstruction secondary to sigmoid volvulus status post colectomy. 2. Postoperative ileus. 3. Bilateral small pleural effusion and compressive atelectasis, possible sepsis secondary to above. 4. Advanced Alzheimer's dementia. 5. Depression. 6. Bilateral heel pressure stage I, present on admission. RECOMMENDATIONS AND DISCUSSION: I recommend to continue current management and symptomatic treatment. Continue with current medications and closely follow with surgery. DVT prophylaxis. Further recommendations to follow. MMODL / IJN: [id number] /
[2018-08-09] MEDS: MIRTAZAPINE 15 MG TAB PO SCH (20:33)
[2018-08-09 23:11] LABS: Glucose,Whole Blood 90 mg/dL (75-99)
--- NOTE | 2018-08-09 23:41 | PN ---
PROGRESS NOTE DATE OF SERVICE: 08/09/2018. REASON FOR FOLLOWUP: 1. Bilateral heel stage I pressure ulcer. 2. Postop fevers, anemia. INTERVAL HISTORY: The patient is currently afebrile, has been breathing comfortably. Patient denies having any abdominal pain. No nausea or vomiting has been noticed or any worsening diarrhea. PHYSICAL EXAMINATION: Blood pressure is 134/82 with a pulse of 69, temperature 98.2. He is 96% on room air. General description is an elderly male lying in bed in no distress. Respiratory system: Unlabored breathing. Clear to auscultation anteriorly. Heart S1, S2. Regular rate and rhythm. Abdomen soft. No distention or rigidity. Bilateral heel is currently covered with no open area. LABS: BUN of 16, creatinine 0.66. DIAGNOSTIC IMPRESSION AND PLAN: 1. Patient with postop ileus in this patient who did have extensive abdominal surgery for a sigmoid volvulus with sigmoid colectomy and anastomosis. The patient has been afebrile. His white count has been normal. We will go ahead and discontinue his antibiotic and watch the patient closely off antibiotic therapy. 2. Patient bilateral heel pressure ulcer, continue with heel protectors. 3. Continue supportive care. MMODL / IJN: [id number] /
[2018-08-10] MEDS: INSULIN ASPART 100 UNIT/ML 1 ML 10 ML VIAL SQ SCH ×4 (00:18→21:31)
[2018-08-10] MEDS: D5-0.45% NACL WITH KCL 20MEQ/L 1,000 ML IV SCH ×2 (00:30→16:02)
[2018-08-10] MEDS: [UNRECOGNIZED DRUG - REMARK] IV SCH ×5 (02:32)
[2018-08-10 05:57] LABS: Glucose,Whole Blood 99 mg/dL (75-99)
[2018-08-10 07:05] LABS: Glucose,Whole Blood 107 mg/dL (75-99)
[2018-08-10] MEDS: PANTOPRAZOLE 40 MG/10 ML VIAL IV SCH (07:13)
[2018-08-10] MEDS: HEPARIN SODIUM,PORCINE 5,000 UNIT/ML 1 ML VIAL SQ SCH ×3 (07:13→23:56)
[2018-08-10] MEDS: BISACODYL 10 MG SUPP RECTAL SCH (07:22)
[2018-08-10 09:00] LABS: Ionized Calcium 4.8 mg/dL (4.5-5.3)
[2018-08-10 09:30] LABS: Anion Gap 3 mmol/L; Blood Urea Nitrogen 18 mg/dL (9-20); Calcium 8.2 mg/dL (8.4-10.2); Carbon Dioxide 26 mmol/L (22-30); Chloride 111 mmol/L (98-107); Glucose 109 mg/dL (74-99); Magnesium 2.4 mg/dL (1.6-2.3); Phosphorus 3.9 mg/dL (2.5-4.5); Potassium 4.6 mmol/L (3.5-5.1); Sodium 140 mmol/L (137-145)
[2018-08-10] MEDS: IPRATROPIUM-ALBUTEROL 3 ML NEB INHALATION SCH ×4 (09:32→20:08)
[2018-08-10 12:06] LABS: Glucose,Whole Blood 117 mg/dL (75-99)
[2018-08-10] MEDS: 1: MVI, ADULT NO.4 WITH VIT K 10 ML, TRACE (CONC-1ML/DOSE) 1 ML, POTASSIUM PHOSPHATE 9 M IV SCH ×8 (13:08→23:56)
--- NOTE | 2018-08-10 13:49 | P.PN ---
Subjective This is a pleasant 77 years old male with past medical history of dementia, left eye blindness, difficulty hearing, his caregiver and power of erisa attorney at bedside and he has a son who lives in [place]. Patient presents with sigmoid volvulus, his status post sigmoid colectomy. Today he is lying in bed comfortable not in distress. Caregiver at bedside. He has some abdominal pain at the surgery site. No chest pain or dyspnea. Vitas looks stable and labs been reviewed. Infectious disease follow-up is appreciated, they recommended to all antibiotics and keep monitoring for now. Objective - Vital Signs Vital signs: Vital Signs Temp 97.7 F 08/10/18 07:24 Pulse 76 08/10/18 12:45 Resp 16 08/10/18 07:24 BP 136/79 08/10/18 07:24 Pulse Ox 96 08/10/18 07:24 Intake & Output 08/09/18 08/10/18 08/10/18 18:59 06:59 18:59 Intake Total 2415 250 Output Total 800 3425 Balance 1615 -3175 Intake: Intake, IV Titration 2014 50 Amount Amino Acid 5%-D15w+Lytes* 1000 E* 1,000 ml @ 95 mls/hr IV .BY DURATION [facility] Rx#: [id number] Cefepime 2 gm In Sodium 50 Chloride 0.9% 50 ml @ 100 mls/hr IVPB Q12HR [facility] Rx #:[id number] Mvi, Adult No.4 with Vit 1015 K 10 ml Trace (Conc-1Ml/ Dose) 1 ml Magnesium Sulfate gm 0.5 gm Potassium Phosphate 9 mmol In Amino Acid 5%- D15w+Lytes*E* 1,000 ml @ 95 mls/hr IV .BY DURATION [facility] Rx#:[id number] Oral 200 200 Other 200 Output: Urine 800 3425 Uretheral ([place]) 800 Other: Voiding Method Indwelling Catheter Indwelling Catheter Indwelling Catheter - Exam GENERAL: The patient is alert and oriented x3, not in any acute distress. Well developed, well nourished. HEENT: Pupils are round and equally reacting to light. EOMI. No scleral icterus. No conjunctival pallor. Normocephalic, atraumatic. No pharyngeal erythema. No thyromegaly. CARDIOVASCULAR: S1 and S2 present. No murmurs, rubs, or gallops. PULMONARY: Chest is clear to auscultation, no wheezing or crackles. -ABDOMEN: Soft, nontender, nondistended, normoactive bowel sounds. No palpable organomegaly. Abdominal incision looks clean and healing, no surrounding cellulitis. MUSCULOSKELETAL: No joint swelling or deformity. EXTREMITIES: No cyanosis, clubbing, or pedal edema. NEUROLOGICAL: Gross neurological examination did not reveal any focal deficits. SKIN: No rashes. - Labs CBC & Chem 7: 08/08/18 06:59 08/10/18 07:46 Labs: Abnormal Lab Results - Last 24 Hours (Table) 08/10/18 08/10/18 08/10/18 Range/Units 06:54 07:46 11:55 Chloride 111 H (98-107) mmol/L Creatinine 0.61 L (0.66-1.25) mg/dL Glucose 109 H (74-99) mg/dL POC Glucose (mg/dL) 107 H 117 H (75-99) mg/dL Calcium 8.2 L (8.4-10.2) mg/dL Magnesium 2.4 H (1.6-2.3) mg/dL Microbiology - Last 24 Hours (Table) 08/03/18 20:04 Blood Culture - Final Blood No Growth after 144 hours Assessment and Plan Assessment: Intestinal obstruction secondary to sigmoid volvulus. Status post-sigmoid colectomy Postoperative ileus Bilateral small effusion and compressive atelectasis. History of Alzheimer dementia Left eye blindness Difficulty hearing Bilateral heel pressure. Stage I, present on admission Plan: This is a pleasant 77 years old male status post sigmoid colectomy. Continue with pain management. Labs and medication were reviewed.. Continue same treatment. Continue with symptomatic treatment. Resume home medication. Monitor lytes and vitals. DVT and GI prophylaxis. Further recommendations of the clinical course of the patient DVT prophylaxis: Subcutaneous heparin GI Prophylaxis: Protonix PT/OT: Pending Prognosis is guarded
--- NOTE | 2018-08-10 15:08 | P.PN ---
Subjective Progress Note Date: 08/10/18 Principal diagnosis: Sigmoid volvulus Patient alert today. Drinking coffee that his friend brought in for him. Still confused but fairly close to baseline per the patient's friends. Fecal management system in place. Some liquid stool and flatus present there. No vomiting. Objective - Vital Signs Vital signs: Vital Signs Temp 98.2 F 08/10/18 14:00 Pulse 78 08/10/18 14:00 Resp 16 08/10/18 07:24 BP 119/68 08/10/18 14:00 Pulse Ox 95 08/10/18 14:00 Intake & Output 08/09/18 08/10/18 08/10/18 18:59 06:59 18:59 Intake Total 2415 250 200 Output Total 800 3425 Balance 1615 -3175 200 Intake: Intake, IV Titration 2014 50 Amount Amino Acid 5%-D15w+Lytes* 1000 E* 1,000 ml @ 95 mls/hr IV .BY DURATION [facility] Rx#: [id number] Cefepime 2 gm In Sodium 50 Chloride 0.9% 50 ml @ 100 mls/hr IVPB Q12HR [facility] Rx #:[id number] Mvi, Adult No.4 with Vit 1015 K 10 ml Trace (Conc-1Ml/ Dose) 1 ml Magnesium Sulfate gm 0.5 gm Potassium Phosphate 9 mmol In Amino Acid 5%- D15w+Lytes*E* 1,000 ml @ 95 mls/hr IV .BY DURATION [facility] Rx#:[id number] Oral 200 200 Other 200 200 Output: Urine 800 3425 Uretheral ([place]) 800 Other: Voiding Method Indwelling Catheter Indwelling Catheter Indwelling Catheter # Voids 3 - Exam Abdomen: Soft, mild distention certainly improved from the last several days. Minimal tenderness, incision clean and dry - Labs CBC & Chem 7: 08/08/18 06:59 08/10/18 07:46 Labs: Abnormal Lab Results - Last 24 Hours (Table) 08/10/18 08/10/18 08/10/18 Range/Units 06:54 07:46 11:55 Chloride 111 H (98-107) mmol/L Creatinine 0.61 L (0.66-1.25) mg/dL Glucose 109 H (74-99) mg/dL POC Glucose (mg/dL) 107 H 117 H (75-99) mg/dL Calcium 8.2 L (8.4-10.2) mg/dL Magnesium 2.4 H (1.6-2.3) mg/dL Microbiology - Last 24 Hours (Table) 08/03/18 20:04 Blood Culture - Final Blood No Growth after 144 hours Assessment and Plan (1) Sigmoid volvulus Narrative/Plan: Continue encouraging oral intake at this point. Wean off TPN as oral intake improves. Apparently he ate much of his lunch and breakfast today. We'll consider removing the FMS tomorrow. Discharge planning. Current Visit: Yes Status: Acute Code(s): K56.2 - VOLVULUS SNOMED Code(s) : 966766602
--- NOTE | 2018-08-10 15:57 | PN ---
PROGRESS NOTE DATE OF SERVICE: 08/10/2018 REASON FOR FOLLOWUP: 1. Postoperative fever. 2. Bilateral heel pressure ulcers. INTERVAL HISTORY: The patient is currently afebrile. He is breathing comfortably. He is more awake and alert. No nausea, no vomiting. Denies having any abdominal pain or any reported by the nursing staff. PHYSICAL EXAMINATION: Blood pressure is 119/68 with a pulse of 70, temperature 98.2. He is 95% on room air. General description is an elderly male lying in bed in no distress. RESPIRATORY SYSTEM: Unlabored breathing. Clear to auscultation anteriorly. HEART: S1, S2. Regular rate and rhythm. ABDOMEN: Soft. No tenderness. Right heel blister has opened up, leading to an ulceration. Left heel blister resolved. LABS: Creatinine 0.61. DIAGNOSTIC IMPRESSION/PLAN: 1. Patient admitted to hospital with sigmoid diverticulitis in this patient who has failed medical therapy, status post sigmoid colectomy and anastomosis with postoperative ileus. He did have mild fever postoperatively that has resolved. He is currently off antibiotic therapy. We will monitor him off antibiotics. 2. Patient who did have bilateral heel stage I pressure ulcers with blisters. The left heel has healed up. Right one has slightly got worse with a blister that has opened up, leading to ulceration. The skin was removed. Wound will be packed with Aquacel Silver. Continue with bilateral heel protectors. Continue with supportive care. MMDINORAHL / ERICN: [id number] /
[2018-08-10] MEDS: FAT EMULSION 20% 250 ML in EMPTY BAG 1 BAG IV SCH (16:12)
[2018-08-10] MEDS: MIRTAZAPINE 15 MG TAB PO SCH (20:25)
[2018-08-11] MEDS: INSULIN ASPART 100 UNIT/ML 1 ML 10 ML VIAL SQ SCH ×5 (01:14→23:56)
[2018-08-11] MEDS: D5-0.45% NACL WITH KCL 20MEQ/L 1,000 ML IV SCH ×2 (03:51→20:54)
[2018-08-11 06:00] LABS: Glucose,Whole Blood 101 mg/dL (75-99)
[2018-08-11] MEDS: IPRATROPIUM-ALBUTEROL 3 ML NEB INHALATION SCH ×4 (08:21→19:28)
[2018-08-11 08:30] LABS: Basophils % (A) 1 %; Eosinophils # (A) 0.2 k/uL (0-0.7); Eosinophils % (A) 4 %; HCT 42.7 % (39.0-53.0); HGB 13.7 gm/dL (13.0-17.5); Lymphocytes # (A) 0.9 k/uL (1.0-4.8); Lymphocytes % (A) 16 %; MCH 30.8 pg (25.0-35.0); MCHC 32.2 g/dL (31.0-37.0); MCV 95.7 fL (80.0-100.0); Mean Platelet Volume 7.7; Monocytes # (A) 0.2 k/uL (0-1.0); Monocytes % (A) 4 %; Neutrophils # (A) 4.2 k/uL (1.3-7.7); Neutrophils % (A) 73 %; Platelet Count 315 k/uL (150-450); RBC 4.46 m/uL (4.30-5.90); RDW 13.3 % (11.5-15.5); WBC 5.7 k/uL (3.8-10.6)
[2018-08-11 08:39] LABS: ALT 80 U/L (21-72); AST 47 U/L (17-59); Alkaline Phosphatase 85 U/L (38-126); Bilirubin, Delta 0.4 mg/dL (0.0-0.2); Bilirubin,Unconjugated 0.4 mg/dL (0.0-1.1); Total Bilirubin 0.8 mg/dL (0.2-1.3); Total Protein 5.5 g/dL (6.3-8.2)
[2018-08-11] MEDS: BISACODYL 10 MG SUPP RECTAL SCH ×2 (09:53→18:16)
[2018-08-11 09:54] LABS: Anion Gap 5 mmol/L; Blood Urea Nitrogen 18 mg/dL (9-20); Calcium 8.5 mg/dL (8.4-10.2); Carbon Dioxide 25 mmol/L (22-30); Chloride 109 mmol/L (98-107); Glucose 104 mg/dL (74-99); Magnesium 2.2 mg/dL (1.6-2.3); Potassium 4.8 mmol/L (3.5-5.1); Sodium 139 mmol/L (137-145)
[2018-08-11] MEDS: PANTOPRAZOLE 40 MG/10 ML VIAL IV SCH ×2 (10:10→20:54)
[2018-08-11] MEDS: HEPARIN SODIUM,PORCINE 5,000 UNIT/ML 1 ML VIAL SQ SCH ×3 (10:11→23:27)
[2018-08-11] MEDS: 1: MVI, ADULT NO.4 WITH VIT K 10 ML, TRACE (CONC-1ML/DOSE) 1 ML, POTASSIUM PHOSPHATE 9 M IV SCH ×8 (10:45→20:54)
[2018-08-11 12:25] LABS: Glucose,Whole Blood 116 mg/dL (75-99)
--- NOTE | 2018-08-11 14:59 | P.PN ---
Subjective Progress Note Date: 08/11/18 Progress note being dictated for Dr. 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 She was started on levofloxacin and metronidazole by general surgery. Patient had low-grade fever because of which are bit septic workup which showed mild left-sided pleural effusion. Patient is being continued on antibiotics patient cannot give me any history because of his baseline advanced dementia. Patient is being continued on IV fluids will repeat a sick metabolic profile and CBC tomorrow. 08/03/2018 Sitting up in chair, pleasantly confused presently confused T-max 100, WBC pending. Urine culture no growth. Physical therapist reports patient became short of breath, significant wheezing upon transitioning to chair. Epidural being discontinued today. Creatinine 0.83. Sodium 138. 08/04/18 lethargic this morning, received Dilaudid around midnight. Dilaudid discontinued, now receiving Toradol for pain management. Appears comfortable, minimally to no conversing- baseline, Rhonchorous, IV fluids decreased in addition to Lasix 20 IV push ordered. Evaluated by infectious disease regarding bilateral heel ulcers, recommendations noted. Afebrile, normal WBC. No nausea, vomiting or diarrhea. Staff reports small bowel movement yesterday. Abdomen appears more bloated/tympanic today, diet downgraded-NPO. 08/05/2018 PICC line placed yesterday, TPN initiated. Afebrile. Abdominal distention, without nausea vomiting. Abdomen/pelvis CT reported postoperative ileus without leakage, bilateral bases with moderate size pleural effusions with compressive atelectasis. Large loose bowel movement reported today. No nausea or vomiting. Afebrile. Blood cultures negative. Appears comfortable. 08/06/2018 positive bowel movement again this morning. Abdomen remains distended, minimally softer. No nausea or vomiting. Afebrile with blood cultures negative at 48 hours. Potassium supplemented yesterday, currently 3.5. Blood sugars controlled. 08/07/2018 large loose bowel movement-diarrhea this morning, tested negative for C. difficile colitis. Abdomen distended but softer. Afebrile, normal WBC. Abdominal x-ray reported multiple prominent air-filled loops of small bowel and colon. Abdomen /pelvis CT suggestive of moderate bilateral pleural effusions. Chest ultrasound reported small bilateral pleural effusions, not marked. Continues on TPN. 08/11/2018 much more alert, answering simple questions. Diet advanced, tolerating well. Consuming 75% of meals yesterday, minimal intake this morning at breakfast; consuming 100% at lunch. No nausea or vomiting. No bowel movement yet today, passing flatus.TPN weaning off. Currently off antibiotic therapy as per infectious disease. Afebrile, normal WBC. Objective - Vital Signs Vital signs: Vital Signs Temp 97.7 F 08/11/18 07:25 Pulse 80 08/11/18 11:59 Resp 18 08/11/18 08:00 BP 120/74 08/11/18 07:25 Pulse Ox 96 08/11/18 08:27 Intake & Output 08/10/18 08/11/18 08/11/18 18:59 06:59 18:59 Intake Total 200 1000 Output Total 1800 600 Balance 200 -800 -600 Intake: Intake, IV Titration 1000 Amount Amino Acid 5%-D15w+Lytes* 1000 E* 1,000 ml @ 95 mls/hr IV .BY DURATION [facility] Rx#: [id number] Other 200 Output: Urine 1800 600 Other: Voiding Method Indwelling Catheter Indwelling Catheter Indwelling Catheter # Voids 3 - Exam GENERAL: The patient is lying in bed, alert and oriented x1 ,no acute distress. Answering simple questions. HEENT: Pupils are round and equal. Left eye blindness. Normocephalic, atraumatic. Hard of hearing. CARDIOVASCULAR: S1 and S2 present. No murmurs, rubs, or gallops. PULMONARY: Unlabored ,Chest is clear to auscultation, bilateral bases diminished ABDOMEN: Soft, minimally distended status post surgery. Positive bowel sounds. EXTREMITIES: No cyanosis, clubbing, or pedal edema. NEUROLOGICAL: Gross neurological examination did not reveal any focal deficits. SKIN: Right heel blister opened, positive ulceration with right heel dressing clean dry and intact. - Labs CBC & Chem 7: 08/11/18 07:25 08/11/18 07:25 Labs: Abnormal Lab Results - Last 24 Hours (Table) 08/11/18 08/11/18 08/11/18 Range/Units 05:48 07:25 07:25 Lymphocytes # 0.9 L (1.0-4.8) k/uL Chloride 109 H (98-107) mmol/L Glucose 104 H (74-99) mg/dL POC Glucose (mg/dL) 101 H (75-99) mg/dL Delta Bilirubin 0.4 H (0.0-0.2) mg/dL ALT 80 H (21-72) U/L Total Protein 5.5 L (6.3-8.2) g/dL Albumin 3.0 L (3.5-5.0) g/dL 08/11/18 Range/Units 12:13 Lymphocytes # (1.0-4.8) k/uL Chloride (98-107) mmol/L Glucose (74-99) mg/dL POC Glucose (mg/dL) 116 H (75-99) mg/dL Delta Bilirubin (0.0-0.2) mg/dL ALT (21-72) U/L Total Protein (6.3-8.2) g/dL Albumin (3.5-5.0) g/dL Assessment and Plan Assessment: -Colonic Obstruction secondary to sigmoid volvulus: Status post sigmoid colectomy with anastomosis -Postoperative ileus, expected outcome. -Bilateral small effusions, compressive atelectasis -Possible Sepsis secondary to colitis. -Advanced Alzheimer's dementia -Depression -Bilateral heel pressure ulcers, stage I, present on admission. Left heel resolved, right heel opened, packed with dressing. Plan: Continue on current medication regime ,monitoring and symptomatic treatment. Diet advancement as per surgery with TPN being weaned off . Strict aspiration precautions, assist with all meals/snacks. PT/OT. Discharge planning in progress as per surgery. Thank you for allowing us to participate in the care of this pleasant gentleman. The impression and plan of care has been dictated as directed. : I performed a history and examination of this patient, discussed the same with the dictator. I agree with the dictator's note ,documented as a scribe. Any additional findings or plans will be noted.
[2018-08-11] MEDS: FAT EMULSION 20% 250 ML in EMPTY BAG 1 BAG IV SCH (16:40)
[2018-08-11 17:07] LABS: Glucose,Whole Blood 90 mg/dL (75-99)
--- NOTE | 2018-08-11 18:15 | P.PN ---
Subjective Progress Note Date: 08/11/18 Principal diagnosis: Sigmoid volvulus Patient more alert today. He at 100% of his lunch today. No stools however today. Still confused. He is afebrile. Denies pain at this time. Objective - Vital Signs Vital signs: Vital Signs Temp 98 F 08/11/18 15:49 Pulse 80 08/11/18 16:23 Resp 16 08/11/18 16:00 BP 105/69 08/11/18 15:49 Pulse Ox 98 08/11/18 15:49 Intake & Output 08/10/18 08/11/18 08/11/18 18:59 06:59 18:59 Intake Total 200 1000 665 Output Total 1800 1450 Balance 200 -800 -785 Weight 83.915 kg Intake: Intake, IV Titration 1000 665 Amount Amino Acid 5%-D15w+Lytes* 1000 E* 1,000 ml @ 95 mls/hr IV .BY DURATION [facility] Rx#: [id number] Mvi, Adult No.4 with Vit 665 K 10 ml Trace (Conc-1Ml/ Dose) 1 ml Potassium Phosphate 9 mmol In Amino Acid 5%-D15w+Lytes*E* 1, 000 ml @ 95 mls/hr IV .BY DURATION [facility] Rx#: [id number] Other 200 Output: Urine 1800 1450 Other: Voiding Method Indwelling Catheter Indwelling Catheter Indwelling Catheter # Voids 3 - Exam Abdomen: Soft, mild distention stable, incision clean and dry, nontender - Labs CBC & Chem 7: 08/11/18 07:25 08/11/18 07:25 Labs: Abnormal Lab Results - Last 24 Hours (Table) 08/11/18 08/11/18 08/11/18 Range/Units 05:48 07:25 07:25 Lymphocytes # 0.9 L (1.0-4.8) k/uL Chloride 109 H (98-107) mmol/L Glucose 104 H (74-99) mg/dL POC Glucose (mg/dL) 101 H (75-99) mg/dL Delta Bilirubin 0.4 H (0.0-0.2) mg/dL ALT 80 H (21-72) U/L Total Protein 5.5 L (6.3-8.2) g/dL Albumin 3.0 L (3.5-5.0) g/dL 08/11/18 Range/Units 12:13 Lymphocytes # (1.0-4.8) k/uL Chloride (98-107) mmol/L Glucose (74-99) mg/dL POC Glucose (mg/dL) 116 H (75-99) mg/dL Delta Bilirubin (0.0-0.2) mg/dL ALT (21-72) U/L Total Protein (6.3-8.2) g/dL Albumin (3.5-5.0) g/dL Assessment and Plan (1) Sigmoid volvulus Narrative/Plan: Continue diet as tolerated. Remove Sherman catheter per primary service. Daily suppositories. Increase activity. Current Visit: Yes Status: Acute Code(s): K56.2 - VOLVULUS SNOMED Code(s) : 416523129
[2018-08-11] MEDS: MIRTAZAPINE 15 MG TAB PO SCH (20:26)
[2018-08-12] LABS: Glucose,Whole Blood 95 mg/dL (75-99)
--- NOTE | 2018-08-12 00:58 | PN ---
PROGRESS NOTE DATE OF SERVICE: 08/11/2018. REASON FOR FOLLOWUP: Right heel stage II pressure ulcer. INTERVAL HISTORY: The patient is currently afebrile, has been breathing comfortably, currently tolerating his . No nausea, vomiting, or any diarrhea. No pain to the right heel area. PHYSICAL EXAMINATION: Blood pressure 122/76 with pulse of 84, temperature 98.8. He is 93% on room air. GENERAL DESCRIPTION: An elderly male lying in bed in no distress. RESPIRATORY SYSTEM: Unlabored breathing. Clear to auscultation anteriorly. HEART: S1, S2. Regular rate and rhythm. ABDOMEN: Soft. No tenderness. EXTREMITIES: Right knee is currently dressed up. No obvious drainage on the dressing. LABS: Hemoglobin 13.7, white count 5.7, BUN 15, creatinine 0.69. DIAGNOSTIC IMPRESSION AND PLAN: Patient with right heel pressure ulcer. Local care with Aquacel Silver dressing. Keep the area off the pressure. No need for any further systemic antibiotic therapy at this point. Continue supportive care. Family present at bedside. Their questions were answered. MMODL / IJN: [id number] /
[2018-08-12 07:01] LABS: Glucose,Whole Blood 94 mg/dL (75-99)
[2018-08-12 08:08] LABS: ALT 76 U/L (21-72); AST 43 U/L (17-59); Albumin 3.2 g/dL (3.5-5.0); Alkaline Phosphatase 114 U/L (38-126); Anion Gap 8 mmol/L; Bilirubin, Delta 0.4 mg/dL (0.0-0.2); Bilirubin,Unconjugated 0.6 mg/dL (0.0-1.1); Blood Urea Nitrogen 22 mg/dL (9-20); Calcium 8.6 mg/dL (8.4-10.2); Carbon Dioxide 23 mmol/L (22-30); Chloride 109 mmol/L (98-107); Glucose 94 mg/dL (74-99); Magnesium 2.2 mg/dL (1.6-2.3); Potassium 4.4 mmol/L (3.5-5.1); Sodium 140 mmol/L (137-145); Total Protein 5.9 g/dL (6.3-8.2)
[2018-08-12] MEDS: IPRATROPIUM-ALBUTEROL 3 ML NEB INHALATION SCH ×4 (08:35→21:35)
[2018-08-12] MEDS: INSULIN ASPART 100 UNIT/ML 1 ML 10 ML VIAL SQ SCH ×4 (09:01→20:50)
[2018-08-12] MEDS: 1: MVI, ADULT NO.4 WITH VIT K 10 ML, TRACE (CONC-1ML/DOSE) 1 ML, POTASSIUM PHOSPHATE 9 M IV SCH ×4 (09:02)
[2018-08-12] MEDS: PANTOPRAZOLE 40 MG/10 ML VIAL IV SCH (09:12)
[2018-08-12] MEDS: BISACODYL 10 MG SUPP RECTAL SCH (09:13)
[2018-08-12] MEDS: HEPARIN SODIUM,PORCINE 5,000 UNIT/ML 1 ML VIAL SQ SCH ×3 (09:13→23:53)
[2018-08-12 11:53] LABS: Glucose,Whole Blood 108 mg/dL (75-99)
--- NOTE | 2018-08-12 12:05 | P.PN ---
Subjective Progress Note Date: 08/12/18 Principal diagnosis: Sigmoid volvulus Patient remains pleasantly confused. He is alert. At much as breakfast. Apparently has had 4 loose stools since yesterday. Objective - Vital Signs Vital signs: Vital Signs Temp 98.8 F 08/12/18 07:30 Pulse 76 08/12/18 11:58 Resp 16 08/12/18 08:00 BP 126/76 08/12/18 07:30 Pulse Ox 95 08/12/18 07:30 Intake & Output 08/11/18 08/12/18 08/12/18 18:59 06:59 18:59 Intake Total 665 Output Total 2150 501 350 Balance -1485 -501 -350 Weight 83.915 kg Intake: Intake, IV Titration 665 Amount Mvi, Adult No.4 with Vit 665 K 10 ml Trace (Conc-1Ml/ Dose) 1 ml Potassium Phosphate 9 mmol In Amino Acid 5%-D15w+Lytes*E* 1, 000 ml @ 95 mls/hr IV .BY DURATION [facility] Rx#: [id number] Output: Urine 2150 500 350 Stool 1 Other: Voiding Method Indwelling Catheter Indwelling Catheter Indwelling Catheter # Bowel Movements 1 - Exam Abdomen: Soft, mild distention, nontender, incisions clean and dry - Labs CBC & Chem 7: 08/11/18 07:25 08/12/18 06:26 Labs: Abnormal Lab Results - Last 24 Hours (Table) 08/11/18 08/12/18 08/12/18 Range/Units 12:13 06:26 11:41 Chloride 109 H (98-107) mmol/L BUN 22 H (9-20) mg/dL POC Glucose (mg/dL) 116 H 108 H (75-99) mg/dL Delta Bilirubin 0.4 H (0.0-0.2) mg/dL ALT 76 H (21-72) U/L Total Protein 5.9 L (6.3-8.2) g/dL Albumin 3.2 L (3.5-5.0) g/dL Assessment and Plan (1) Sigmoid volvulus Narrative/Plan: Continue stool softeners. Continue Dulcolax suppositories. Continue diet as tolerated. Discharge planning. Current Visit: Yes Status: Acute Code(s): K56.2 - VOLVULUS SNOMED Code(s) : 964242721
[2018-08-12] MEDS: MAGNESIUM HYDROXIDE 2,400 MG/10 ML CUP PO SCH (13:29)
--- NOTE | 2018-08-12 15:03 | P.PN ---
Subjective Progress Note Date: 08/12/18 Progress note being dictated for Dr. 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 She was started on levofloxacin and metronidazole by general surgery. Patient had low-grade fever because of which are bit septic workup which showed mild left-sided pleural effusion. Patient is being continued on antibiotics patient cannot give me any history because of his baseline advanced dementia. Patient is being continued on IV fluids will repeat a sick metabolic profile and CBC tomorrow. 08/03/2018 Sitting up in chair, pleasantly confused presently confused T-max 100, WBC pending. Urine culture no growth. Physical therapist reports patient became short of breath, significant wheezing upon transitioning to chair. Epidural being discontinued today. Creatinine 0.83. Sodium 138. 08/04/18 lethargic this morning, received Dilaudid around midnight. Dilaudid discontinued, now receiving Toradol for pain management. Appears comfortable, minimally to no conversing- baseline, Rhonchorous, IV fluids decreased in addition to Lasix 20 IV push ordered. Evaluated by infectious disease regarding bilateral heel ulcers, recommendations noted. Afebrile, normal WBC. No nausea, vomiting or diarrhea. Staff reports small bowel movement yesterday. Abdomen appears more bloated/tympanic today, diet downgraded-NPO. 08/05/2018 PICC line placed yesterday, TPN initiated. Afebrile. Abdominal distention, without nausea vomiting. Abdomen/pelvis CT reported postoperative ileus without leakage, bilateral bases with moderate size pleural effusions with compressive atelectasis. Large loose bowel movement reported today. No nausea or vomiting. Afebrile. Blood cultures negative. Appears comfortable. 08/06/2018 positive bowel movement again this morning. Abdomen remains distended, minimally softer. No nausea or vomiting. Afebrile with blood cultures negative at 48 hours. Potassium supplemented yesterday, currently 3.5. Blood sugars controlled. 08/07/2018 large loose bowel movement-diarrhea this morning, tested negative for C. difficile colitis. Abdomen distended but softer. Afebrile, normal WBC. Abdominal x-ray reported multiple prominent air-filled loops of small bowel and colon. Abdomen /pelvis CT suggestive of moderate bilateral pleural effusions. Chest ultrasound reported small bilateral pleural effusions, not marked. Continues on TPN. 08/11/2018 much more alert, answering simple questions. Diet advanced, tolerating well. Consuming 75% of meals yesterday, minimal intake this morning at breakfast; consuming 100% at lunch. No nausea or vomiting. No bowel movement yet today, passing flatus.TPN weaning off. Currently off antibiotic therapy as per infectious disease. Afebrile, normal WBC. 08/12/2018 TPN weaned off, consuming 50% of diet. Maintained on stool softeners , Dulcolax suppositories as per surgery. Loose stools, 3 bowel movements reported last night and one this morning. Sitting up at bedside with PT. Afebrile. Objective - Vital Signs Vital signs: Vital Signs Temp 98.7 F 08/12/18 14:22 Pulse 84 08/12/18 14:22 Resp 16 08/12/18 14:22 BP 113/70 08/12/18 14:22 Pulse Ox 94 L 08/12/18 14:22 Intake & Output 08/11/18 08/12/18 08/12/18 18:59 06:59 18:59 Intake Total 665 350 Output Total 2150 501 350 Balance -1485 -501 0 Weight 83.915 kg Intake: Intake, IV Titration 665 350 Amount IV Fluid Continuation 1, 350 000 ml @ 0 mls/hr IV .[facility] Rx#:[id number] Mvi, Adult No.4 with Vit 665 K 10 ml Trace (Conc-1Ml/ Dose) 1 ml Potassium Phosphate 9 mmol In Amino Acid 5%-D15w+Lytes*E* 1, 000 ml @ 95 mls/hr IV .BY DURATION [facility] Rx#: [id number] Output: Urine 2150 500 350 Stool 1 Other: Voiding Method Indwelling Catheter Indwelling Catheter Indwelling Catheter # Bowel Movements 1 - Exam GENERAL: The patient is sitting up at side of bed, alert and oriented x1 ,no acute distress. HEENT: Pupils are round and equal. Left eye blindness. Normocephalic, atraumatic. Hard of hearing. CARDIOVASCULAR: S1 and S2 present. No murmurs, rubs, or gallops. PULMONARY: Unlabored ,Chest is clear to auscultation, bilateral bases diminished ABDOMEN: Soft, minimally distended status post surgery. Positive bowel sounds. EXTREMITIES: No cyanosis, clubbing, or pedal edema. NEUROLOGICAL: Gross neurological examination did not reveal any focal deficits. SKIN: Right heel blister opened, positive ulceration with right heel dressing clean dry and intact. - Labs CBC & Chem 7: 08/11/18 07:25 08/12/18 06:26 Labs: Abnormal Lab Results - Last 24 Hours (Table) 08/12/18 08/12/18 Range/Units 06:26 11:41 Chloride 109 H (98-107) mmol/L BUN 22 H (9-20) mg/dL POC Glucose (mg/dL) 108 H (75-99) mg/dL Delta Bilirubin 0.4 H (0.0-0.2) mg/dL ALT 76 H (21-72) U/L Total Protein 5.9 L (6.3-8.2) g/dL Albumin 3.2 L (3.5-5.0) g/dL Assessment and Plan Assessment: -Colonic Obstruction secondary to sigmoid volvulus: Status post sigmoid colectomy with anastomosis -Postoperative ileus, expected outcome. -Bilateral small effusions, compressive atelectasis -Possible Sepsis secondary to colitis. -Advanced Alzheimer's dementia -Depression -Bilateral heel pressure ulcers, stage I, present on admission. Left heel resolved, right heel opened, packed with dressing. Plan: Continue on current medication regime ,monitoring and symptomatic treatment. PT/OT. Bowel regimen as per surgery. Discharge planning in progress as per surgery. Thank you for allowing us to participate in the care of this pleasant gentleman. The impression and plan of care has been dictated as directed. : I performed a history and examination of this patient, discussed the same with the dictator. I agree with the dictator's note ,documented as a scribe. Any additional findings or plans will be noted.
[2018-08-12 17:29] LABS: Glucose,Whole Blood 96 mg/dL (75-99)
[2018-08-12 20:25] LABS: Glucose,Whole Blood 98 mg/dL (75-99)
[2018-08-12] MEDS: MIRTAZAPINE 15 MG TAB PO SCH (20:50)
--- NOTE | 2018-08-12 23:17 | PN ---
PROGRESS NOTE DATE OF SERVICE: 08/12/2018 REASON FOR FOLLOWUP: Right heel stage II pressure ulcer. INTERVAL HISTORY: The patient is afebrile. He is currently being fed by his family. The patient has been tolerating his diet. No nausea. No vomiting. Denies having worsening abdominal pain or any diarrhea. PHYSICAL EXAMINATION: Blood pressure is 119/79 with a pulse of 91, temperature 97.8. He is 96% on room air. General description is an elderly male lying in bed in no distress. RESPIRATORY SYSTEM: Unlabored breathing. Clear to auscultation anteriorly. HEART: S1, S2. Regular rate and rhythm. ABDOMEN: Soft. No tenderness. Left heel wound is currently dressed up. No obvious drainage on the dressing. LABS: BUN of 22, creatinine 0.75. DIAGNOSTIC IMPRESSION AND PLAN: Patient with left heel stage II pressure ulcer, currently with no evidence of any cellulitis. Local wound care with Aquacel Silver dressing. Keep the area off pressure. Family present at the bedside. Questions were answered. MMODL / IJN: [id number] /
[2018-08-13 07:04] LABS: Glucose,Whole Blood 91 mg/dL (75-99)
[2018-08-13] MEDS: D5-0.45% NACL WITH KCL 20MEQ/L 1,000 ML IV SCH ×2 (07:48→08:40)
[2018-08-13] MEDS: IPRATROPIUM-ALBUTEROL 3 ML NEB INHALATION SCH ×3 (07:57→15:38)
[2018-08-13] MEDS: INSULIN ASPART 100 UNIT/ML 1 ML 10 ML VIAL SQ SCH ×2 (08:39→12:52)
[2018-08-13] MEDS: MAGNESIUM HYDROXIDE 2,400 MG/10 ML CUP PO SCH (08:40)
[2018-08-13] MEDS: PANTOPRAZOLE 40 MG/10 ML VIAL IV SCH (08:40)
[2018-08-13] MEDS: BISACODYL 10 MG SUPP RECTAL SCH (08:41)
[2018-08-13] MEDS: HEPARIN SODIUM,PORCINE 5,000 UNIT/ML 1 ML VIAL SQ SCH ×2 (08:41→17:25)
[2018-08-13 08:56] LABS: ALT 79 U/L (21-72); AST 50 U/L (17-59); Albumin 3.4 g/dL (3.5-5.0); Alkaline Phosphatase 121 U/L (38-126); Anion Gap 7 mmol/L; Bilirubin, Delta 0.4 mg/dL (0.0-0.2); Bilirubin,Unconjugated 0.8 mg/dL (0.0-1.1); Blood Urea Nitrogen 21 mg/dL (9-20); Calcium 8.8 mg/dL (8.4-10.2); Carbon Dioxide 25 mmol/L (22-30); Chloride 109 mmol/L (98-107); Glucose 97 mg/dL (74-99); Magnesium 2.2 mg/dL (1.6-2.3); Phosphorus 3.4 mg/dL (2.5-4.5); Potassium 4.6 mmol/L (3.5-5.1); Sodium 141 mmol/L (137-145); Total Bilirubin 1.2 mg/dL (0.2-1.3); Total Protein 6.2 g/dL (6.3-8.2)
[2018-08-13 12:08] LABS: Glucose,Whole Blood 92 mg/dL (75-99)
--- NOTE | 2018-08-13 15:15 | P.DS ---
Providers Date of admission: 07/30/18 16:26 Expected date of discharge: 08/13/18 Attending physician: Kb Remy Consults: 07/30/18 17:41 Consult Physician Routine Consulting Provider: Cody Sandoval Consult Reason/Comments: Medical management Do you want consulting provider notified?: Yes 08/03/18 11:53 Consult Physician Routine Consulting Provider: Lance Wilkinson Consult Reason/Comments: Wounds to Bilateral heels Do you want consulting provider notified?: Yes Primary care physician: Brent Richmond DO Hospital Course: 77 year old male who presented to the hospital with abdominal pain and vomiting. CT demonstrated sigmoid volvulus. Patient underwent sigmoid colectomy on 07/31/[address] Remy. Patient did develop an ileus postoperatively. A PICC line was placed and TPN was started. CT scan was completed which was negative for findings that would suggest anastomotic leak. Digital rectal stimulation was performed daily in which patient passed a large volume of flatus and stool each time. Ileus has since resolved. His TPN was been weaned off. He is tolerating PO intake. No nausea or vomiting. Patient is stable for discharge to subacute rehab today. He is to continue daily dulcolax suppositories and milk of magnesia daily at the time of discharge. Please see EMR for further details regarding hospital course. DISCHARGE DIAGNOSIS: 1. Sigmoid volvulus, s/p sigmoid colectomy 2. Postoperative ileus, resolved 3. Alzheimer's dementia Nurse practitioner note has been reviewed by physician. Signing provider agrees with the documented findings, assessment, and plan of care. Plan - Discharge Summary New Discharge Prescriptions: New Bisacodyl [Dulcolax] 10 mg RECTAL DAILY #30 supp Magnesium Hydroxide [Milk of Magnesia Concentrate] 2,400 mg PO DAILY #300 ml No Action Vitamin E (Dl,Tocopheryl Acet) [Vitamin E] 400 unit PO DAILY Mirtazapine [Remeron] 15 mg PO HS Donepezil [Aricept] 10 mg PO HS Cholecalciferol [Vitamin D3] 1,000 unit PO DAILY Vitamin B Complex 1 cap PO DAILY Ubidecarenone [Co Q-10] 100 mg PO DAILY Turmeric Root Extract [Turmeric] 500 mg PO DAILY Prevagen 1 tab PO DAILY [place]-3 Fatty Acids/Fish Oil [Fish Oil 1,000 mg Softgel] 1 cap PO DAILY Ascorbic Acid [Vitamin C] 1,000 mg PO DAILY Discharge Medication List Ascorbic Acid [Vitamin C] 1,000 mg PO DAILY 07/30/18 [History] Cholecalciferol [Vitamin D3] 1,000 unit PO DAILY 07/30/18 [History] Donepezil [Aricept] 10 mg PO HS 07/30/18 [History] Mirtazapine [Remeron] 15 mg PO HS 07/30/18 [History] [place]-3 Fatty Acids/Fish Oil [Fish Oil 1,000 mg Softgel] 1 cap PO DAILY [History] Prevagen 1 tab PO DAILY 07/30/18 [History] Turmeric Root Extract [Turmeric] 500 mg PO DAILY 07/30/18 [History] Ubidecarenone [Co Q-10] 100 mg PO DAILY 07/30/18 [History] Vitamin B Complex 1 cap PO DAILY 07/30/18 [History] Vitamin E (Dl,Tocopheryl Acet) [Vitamin E] 400 unit PO DAILY 07/30/18 [History] Bisacodyl [Dulcolax] 10 mg RECTAL DAILY #30 supp 08/13/18 [Rx] Magnesium Hydroxide [Milk of Magnesia Concentrate] 2,400 mg PO DAILY #300 ml [Rx] Follow up Appointment(s)/Referral(s): Kb Remy MD [Medical Doctor] - 1 Week Brent Richmond DO [Primary Care Provider] - 1-2 days [facility], [NON-STAFF] - As Needed Patient Instructions/Handouts: Colectomy (DC) Activity/Diet/Wound Care/Special Instructions: Every other staple removed today. Please discontinue remaining mony in one week Please use heel protection boots Diet: Dysphasia/Soft Dressing to right heel - Aquacell silver wrapped in kerlix Sherman Catheter removed at [facility] at 11:40am, due to void by 1740. Discharge Disposition: TRANSFER TO SNF/ECF
--- NOTE | 2018-08-13 15:17 | P.DS ---
Providers Date of admission: 07/30/18 16:26 Expected date of discharge: 08/13/18 Attending physician: Kb Remy Consults: 07/30/18 17:41 Consult Physician Routine Consulting Provider: Cody Sandoval Consult Reason/Comments: Medical management Do you want consulting provider notified?: Yes 08/03/18 11:53 Consult Physician Routine Consulting Provider: Lance Wilkinson Consult Reason/Comments: Wounds to Bilateral heels Do you want consulting provider notified?: Yes Primary care physician: Brent Richmond, DO - Discharge Diagnosis(es) (1) Sigmoid volvulus Patient admitted through the ER with sigmoid volvulus. The patient was taken for decompressive colonoscopy. A large amount of liquid stool and air was evacuated at that time. The following morning the patient's abdominal distention persisted. Repeat abdominal x-ray showed persistent sigmoid volvulus. Patient was then taken the operating room for sigmoid colectomy. Primary anastomosis did take place. Postoperative the patient has had a long hospital course. Patient's underlying dementia has made it difficult to increase his activity levels. Patient has been combative at times with the nursing staff. The patient had a colonic ileus postoperative bleed. The patient had gradual resolution of his colonic ileus with daily rectal examination and rectal decompression. The patient had a CAT scan to evaluate his anastomotic site which showed no leak. His labs have normalized. He was on TPN through a PICC line for a period of time. The last few days has been eating more and more. Yesterday he ate 100% of his meals roughly. His incision is clean and dry. He denies pain. He remains pleasantly confused at this time. He did develop blisters on his heels and these of been followed by infectious disease. Plan at this time is for rehab transfer. Sherman catheter was removed today. One half of the mony removed today. Patient will follow- up with me in 2 weeks. Patient may develop urinary retention. Patient may require Sherman catheter placement at the snf if his bladder residuals are elevated. Current Visit: Yes Status: Acute Plan - Discharge Summary New Discharge Prescriptions: New Bisacodyl [Dulcolax] 10 mg RECTAL DAILY #30 supp Magnesium Hydroxide [Milk of Magnesia Concentrate] 2,400 mg PO DAILY #300 ml No Action Vitamin E (Dl,Tocopheryl Acet) [Vitamin E] 400 unit PO DAILY Mirtazapine [Remeron] 15 mg PO HS Donepezil [Aricept] 10 mg PO HS Cholecalciferol [Vitamin D3] 1,000 unit PO DAILY Vitamin B Complex 1 cap PO DAILY Ubidecarenone [Co Q-10] 100 mg PO DAILY Turmeric Root Extract [Turmeric] 500 mg PO DAILY Prevagen 1 tab PO DAILY Dakota-3 Fatty Acids/Fish Oil [Fish Oil 1,000 mg Softgel] 1 cap PO DAILY Ascorbic Acid [Vitamin C] 1,000 mg PO DAILY Discharge Medication List Ascorbic Acid [Vitamin C] 1,000 mg PO DAILY 07/30/18 [History] Cholecalciferol [Vitamin D3] 1,000 unit PO DAILY 07/30/18 [History] Donepezil [Aricept] 10 mg PO HS 07/30/18 [History] Mirtazapine [Remeron] 15 mg PO HS 07/30/18 [History] Dakota-3 Fatty Acids/Fish Oil [Fish Oil 1,000 mg Softgel] 1 cap PO DAILY [History] Prevagen 1 tab PO DAILY 07/30/18 [History] Turmeric Root Extract [Turmeric] 500 mg PO DAILY 07/30/18 [History] Ubidecarenone [Co Q-10] 100 mg PO DAILY 07/30/18 [History] Vitamin B Complex 1 cap PO DAILY 07/30/18 [History] Vitamin E (Dl,Tocopheryl Acet) [Vitamin E] 400 unit PO DAILY 07/30/18 [History] Bisacodyl [Dulcolax] 10 mg RECTAL DAILY #30 supp 08/13/18 [Rx] Magnesium Hydroxide [Milk of Magnesia Concentrate] 2,400 mg PO DAILY #300 ml [Rx] Follow up Appointment(s)/Referral(s): Kb Remy MD [Medical Doctor] - 1 Week Brent Richmond DO [Primary Care Provider] - 1-2 days [facility], [NON-STAFF] - As Needed Patient Instructions/Handouts: Colectomy (DC) Activity/Diet/Wound Care/Special Instructions: Every other staple removed today. Please discontinue remaining mony in one week Please use heel protection boots Diet: Dysphasia/Soft Dressing to right heel - Aquacell silver wrapped in kerlix Sherman Catheter removed at [facility] at 11:40am, due to void by 1740. Discharge Disposition: TRANSFER TO SNF/ECF
[2018-08-13 17:16] VITALS: BP 133/79; PULSE 69; RESP 15; TEMP 98
--- NOTE | 2018-08-13 21:48 | PN ---
PROGRESS NOTE DATE OF SERVICE: 08/13/2018 REASON FOR FOLLOWUP: Right heel pressure ulcer, stage II. INTERVAL HISTORY: The patient was seen on rounds earlier this afternoon. The patient has been afebrile. He was breathing comfortably and in no distress. No nausea, vomiting or any diarrhea reported by the nursing staff. PHYSICAL EXAMINATION: Blood pressure is 133/79 with a pulse of 59, temperature 98. He is 95% on room air. General description is an elderly male lying in bed in no distress. RESPIRATORY SYSTEM: Unlabored breathing. Clear to auscultation anteriorly. HEART: S1, S2. Regular rate and rhythm. ABDOMEN: Soft. No tenderness. Right heel is currently dressed with a heel protector, and no drainage on the dressing. LABS: Creatinine 0.77. DIAGNOSTIC IMPRESSION AND PLAN: Patient with right heel stage II pressure ulcer with no evidence of any cellulitis. Local care with Aquacel Silver dressing. Keep the area off pressure. No need for any systemic antibiotic therapy. MMODL / IJN: [id number] /
--- NOTE | 2018-08-13 22:20 | P.PN ---
Subjective Progress Note Date: 08/13/18 Progress note being dictated for Dr. 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 She was started on levofloxacin and metronidazole by general surgery. Patient had low-grade fever because of which are bit septic workup which showed mild left-sided pleural effusion. Patient is being continued on antibiotics patient cannot give me any history because of his baseline advanced dementia. Patient is being continued on IV fluids will repeat a sick metabolic profile and CBC tomorrow. 08/03/2018 Sitting up in chair, pleasantly confused presently confused T-max 100, WBC pending. Urine culture no growth. Physical therapist reports patient became short of breath, significant wheezing upon transitioning to chair. Epidural being discontinued today. Creatinine 0.83. Sodium 138. 08/04/18 lethargic this morning, received Dilaudid around midnight. Dilaudid discontinued, now receiving Toradol for pain management. Appears comfortable, minimally to no conversing- baseline, Rhonchorous, IV fluids decreased in addition to Lasix 20 IV push ordered. Evaluated by infectious disease regarding bilateral heel ulcers, recommendations noted. Afebrile, normal WBC. No nausea, vomiting or diarrhea. Staff reports small bowel movement yesterday. Abdomen appears more bloated/tympanic today, diet downgraded-NPO. 08/05/2018 PICC line placed yesterday, TPN initiated. Afebrile. Abdominal distention, without nausea vomiting. Abdomen/pelvis CT reported postoperative ileus without leakage, bilateral bases with moderate size pleural effusions with compressive atelectasis. Large loose bowel movement reported today. No nausea or vomiting. Afebrile. Blood cultures negative. Appears comfortable. 08/06/2018 positive bowel movement again this morning. Abdomen remains distended, minimally softer. No nausea or vomiting. Afebrile with blood cultures negative at 48 hours. Potassium supplemented yesterday, currently 3.5. Blood sugars controlled. 08/07/2018 large loose bowel movement-diarrhea this morning, tested negative for C. difficile colitis. Abdomen distended but softer. Afebrile, normal WBC. Abdominal x-ray reported multiple prominent air-filled loops of small bowel and colon. Abdomen /pelvis CT suggestive of moderate bilateral pleural effusions. Chest ultrasound reported small bilateral pleural effusions, not marked. Continues on TPN. 08/11/2018 much more alert, answering simple questions. Diet advanced, tolerating well. Consuming 75% of meals yesterday, minimal intake this morning at breakfast; consuming 100% at lunch. No nausea or vomiting. No bowel movement yet today, passing flatus.TPN weaning off. Currently off antibiotic therapy as per infectious disease. Afebrile, normal WBC. 08/12/2018 TPN weaned off, consuming 50% of diet. Maintained on stool softeners , Dulcolax suppositories as per surgery. Loose stools, 3 bowel movements reported last night and one this morning. Sitting up at bedside with PT. Afebrile. 08/13/2018. Tolerating oral intake with no nausea vomiting or diarrhea. Afebrile. Objective - Vital Signs Vital signs: Vital Signs Temp 98.0 F 08/13/18 15:00 Pulse 69 08/13/18 15:00 Resp 15 08/13/18 15:00 BP 133/79 08/13/18 15:00 Pulse Ox 95 08/13/18 15:00 Intake & Output 08/13/18 08/13/18 08/14/18 06:59 18:59 06:59 Intake Total 1250 Output Total 551 1601 Balance 699 -1601 Intake: Intake, IV Titration 700 Amount IV Fluid Continuation 1, 700 000 ml @ 0 mls/hr IV .Drip In ONE Rx#:[id number] Oral 550 Output: Urine 550 1600 Straight 500 Uretheral (Sherman) 1100 Stool 1 1 Other: Voiding Method Indwelling Catheter Indwelling Catheter # Voids 0 # Bowel Movements 1 - Exam GENERAL: The patient is sitting up at side of bed, alert and oriented x1 ,no acute distress. HEENT: Pupils are round and equal. Left eye blindness. Normocephalic, atraumatic. Hard of hearing. CARDIOVASCULAR: S1 and S2 present. No murmurs, rubs, or gallops. PULMONARY: Unlabored ,Chest is clear, bilateral bases diminished ABDOMEN: Soft, nondistended status post surgery. Positive bowel sounds. EXTREMITIES: No cyanosis, clubbing, or pedal edema. NEUROLOGICAL: Gross neurological examination did not reveal any focal deficits. SKIN: Right heel blister opened, positive ulceration with right heel dressing clean dry and intact. - Labs CBC & Chem 7: 08/11/18 07:25 08/13/18 08:00 Labs: Abnormal Lab Results - Last 24 Hours (Table) 08/13/18 Range/Units 08:00 Chloride 109 H (98-107) mmol/L BUN 21 H (9-20) mg/dL Delta Bilirubin 0.4 H (0.0-0.2) mg/dL ALT 79 H (21-72) U/L Total Protein 6.2 L (6.3-8.2) g/dL Albumin 3.4 L (3.5-5.0) g/dL Assessment and Plan Assessment: -Colonic Obstruction secondary to sigmoid volvulus: Status post sigmoid colectomy with anastomosis -Postoperative ileus, expected outcome, resolved. -Bilateral atelectasis -Possible Sepsis secondary to colitis. -Advanced Alzheimer's dementia -Depression -Bilateral heel pressure ulcers, stage I, present on admission. Left heel resolved, right heel opened, packed with dressing. Plan: Continue on current medication regime ,monitoring and symptomatic treatment. Bowel regimen as per surgery. Discharge planning in progress for today to subacute rehab. as per surgery. Thank you for allowing us to participate in the care of this pleasant gentleman. The impression and plan of care has been dictated as directed. : I performed a history and examination of this patient, discussed the same with the dictator. I agree with the dictator's note ,documented as a scribe. Any additional findings or plans will be noted.
== END 2018-08-13 18:16 | DRG 853 ==
LOC: EC 11:11 → 4SSUR 16:26
PROVIDERS: ADMIT Surgery; ATTEND Surgery
PROC: 0D9N8ZZ Drainage of Sigmoid Colon, Via Natural or Artificial Opening Endoscopic (ICD-10-PCS; 2018-07-30)
PROC: 02HV33Z Insertion of Infusion Device into Superior Vena Cava, Percutaneous Approach (ICD-10-PCS; 2018-07-30)
PROC: 0DTN0ZZ Resection of Sigmoid Colon, Open Approach (ICD-10-PCS; principal; 2018-07-31 09:20)
PROC: 3E0436Z Introduction of Nutritional Substance into Central Vein, Percutaneous Approach (ICD-10-PCS; 2018-08-04)
DX: A41.9 Sepsis, unspecified organism (principal); K56.2 Volvulus; J18.9 Pneumonia, unspecified organism; K55.039 Acute (reversible) ischemia of large intestine, extent unspecified; J44.0 Chronic obstructive pulmonary disease with (acute) lower respiratory infection; J90 Pleural effusion, not elsewhere classified; J98.11 Atelectasis; K56.7 Ileus, unspecified; E86.0 Dehydration; F02.80 Dementia in other diseases classified elsewhere, unspecified severity, without behavioral disturbance, psychotic disturbance, mood disturbance, and anxiety; F32.9 Major depressive disorder, single episode, unspecified; G30.9 Alzheimer's disease, unspecified; H54.62 Unqualified visual loss, left eye, normal vision right eye; H91.90 Unspecified hearing loss, unspecified ear; L89.621 Pressure ulcer of left heel, stage 1; L89.611 Pressure ulcer of right heel, stage 1; R50.9 Fever, unspecified; Z87.828 Personal history of other (healed) physical injury and trauma; Z87.891 Personal history of nicotine dependence; Z88.0 Allergy status to penicillin; Z79.899 Other long term (current) drug therapy
CPT/HCPCS: 36415; 36573; 45393; 71045; 74019; 74021; 74176; 74177; 76604; 80048; 80053; 80076; 82040; 82150; 82330; 83605; 83690; 83735; 84100; 84478; 84484; 85025; 85610; 85730; 86850; 86900; 86901; 87040; 87086; 87324; 88307; 93005; 94640; 94760; 96361; 96372; 96374; 96375; 96376; 99285